=== PATIENT | male | born 1935 | race Caucasian/White ===

== ENCOUNTER 2018-02-02 15:49 | Inpatient (IN) | payer OTHER ==
[2018-02-02] MEDS ORDERED: NA CHLORIDE 0.9% 1,000 ML ONE ×2 (16:35→20:50)
[2018-02-02] MEDS ORDERED: ONDANSETRON 4 MG/2 ML VIAL ONE ×2 (16:35→20:49)
[2018-02-02] MEDS ORDERED: FENTANYL CITR 100 MCG/2 ML ONE (16:48)
[2018-02-02 17:09] LABS: Absolute Lymphocytes (CBC) 0.5 K/uL (0.7-4.9); Absolute Monocytes 1.1 K/uL (0.1-1.3); Absolute Neutrophil 25.9 K/uL (1.8-8.0); Basophils % 0.3 % (0-1.3); Hematocrit 39.1 % (39.6-49.0); Lymphocytes % 1.6 % (15.3-44.8); MPV 10.4 fL (7.6-11.3); RBC Red Blood Cell Count 4.32 M/uL (4.33-5.43)
[2018-02-02 17:23] LABS: Potassium 4.2 mmol/L (3.5-5.1)
[2018-02-02 17:24] LABS: Albumin 3.9 g/dL (3.4-5.0); Bilirubin Direct 0.7 mg/dL (0-0.2); Bilirubin Total 1.9 mg/dL (0.2-1.0)
[2018-02-02 17:48] LABS: Protime INR 3.99
[2018-02-02] MEDS ORDERED: CIPROFLOXACIN 400mg IV 400 MG/200 ML BAG IV ONE (17:55)
[2018-02-02] MEDS ORDERED: METRONIDAZOLE 500mg IVPB 500 MG/100 ML BAG IV ONE (17:55)
--- NOTE | 2018-02-02 18:09 | RAD REPORT ---
EXAM DESCRIPTION: CTAbdomen Pelvis W Contrast - 02/02/2018 5:57 pm CLINICAL HISTORY: Abdominal pain. ABD PAIN COMPARISON: Abdomen Pelvis Wo Contrast dated 01/30/2018 TECHNIQUE: Biphasic CT imaging of the abdomen and pelvis was performed with 100 ml non-ionic IV cont rast. All CT scans are performed using dose optimization technique as appropriate and may include automated exposure control or mA/KV adjustment according to patient size. FINDINGS: The lower lung fisher are mildly emphysematous.No focal infiltrate detected. The liver demonstrates no focal mass or biliary dilatation. The spleen, pancreas, adrenal glands are within normal limits. Small nonobstructing stones are present in both kidneys. Prominent right renal cyst is measuring 4.6 cm. The large bowel on the right including the cecum and ascending colon is markedly dilated. The cecum m easures 6 cm in anterior-posterior dimension. There is an abrupt caliber change in the region of the hepatic flexure were a annular constricting mass measuring 2 cm in length is suspected, highly concer phill for colon malignancy. The appendix is normal. No evidence of significant lymphadenopathy. Aort ic atherosclerosis. No suspicious bony findings. IMPRESSION: A 2 cm apple core lesion is suspected involving the hepatic flexure of the colon compati ble with colon malignancy. Colonoscopy is recommended for further assessment/direct visualization. There is significant fluid-filled distention of the cecum and ascending colon caused by this.
--- NOTE | 2018-02-02 19:06 | RAD REPORT ---
EXAM DESCRIPTION: US - Abdomen Exam Complete - 02/02/2018 6:31 pm CLINICAL HISTORY: Abdominal pain. RUQ pain, Right renal mass COMPARISON: Abdomen Pelvis W Contrast dated 02/02/2018 FINDINGS: Liver assessment is somewhat limited due to poor sonographic penetrance related to bowel g as. No focal liver lesions or intrahepatic biliary dilatation is suspected. The gallbladder demonstrates no gallstones, pericholecystic fluid or gallbladder wall thickening. Co mmon bile duct is normal in caliber measuring 4 mm Both kidneys are normal in size, shape and echotexture. 4 cm benign-appearing right renal cyst. No hy dronephrosis. The spleen is normal in size measuring 9 cm The pancreas and aorta are obscured by bowel gas. The visualized aspects of the IVC are grossly normal. IMPRESSION: No acute abnormality seen.
[2018-02-02 19:09] LABS: Blood Morphology Comment NOT SEEN (NOT SEEN); Platelet Estimate ADEQ
--- NOTE | 2018-02-02 20:03 | ER ---
Nurse's Notes [facility] Name: Bryant Ware Age: 82 yrs Sex: Male : 1935 Arrival Date: 02/02/2018 Time: 15:52 Bed 30 Private MD: Virgil Graham Diagnosis: Colonic mass;Upper abdominal pain, unspecified;Vomiting Presentation: 02/02 15:57 Presenting complaint: Patient states: From September till now I lost about 30 pounds and I la1 have been having a lot of nausea and vomiting that started today, pt denies diarrhea. Pt is C/O abd pain as well. Transition of care: patient was not received from another setting of care. Onset of symptoms was February 02, 2018. Risk Assessment: Do you want to hurt yourself or someone else? Patient reports no desire to harm self or others. Initial Sepsis Screen: Does the patient meet any 2 criteria? No. Patient's initial sepsis screen is negative. Does the patient have a suspected source of infection? No. Patient's initial sepsis screen is negative. Care prior to arrival: None. 15:57 Method Of Arrival: Wheelchair la1 15:57 Acuity: DUNCAN 3 la1 Triage Assessment: 19:39 GI: Reports vomiting. rv Historical: - Allergies: 15:57 No Known Allergies; la1 - Home Meds: 16:05 glimepiride 1 mg Oral tab 1 tab once daily [Active]; ferrous sulfate 325 mg (65 mg iw iron) Oral tab daily [Active]; warfarin 2 mg Oral tab 1 tab once daily [Active]; digoxin 250 mcg Oral tab 1 tab once daily [Active]; spironolactone 25 mg Oral tab 1 tab once daily [Active]; ramipril 2.5 mg Oral cap 1 cap once daily [Active]; simvastatin 40 mg Oral tab 1 tab once daily [Active]; - PMHx: 15:57 Diabetes - NIDDM; High Cholesterol; Hypertension; Atrial Fib; la1 - Immunization history:: Adult Immunizations up to date. - Social history:: Smoking status: Patient/guardian denies using tobacco. - Ebola Screening: : No symptoms or risks identified at this time. Screenin:02 Abuse screen: Denies threats or abuse. Denies injuries from another. Nutritional rv screening: No deficits noted. Tuberculosis screening: No symptoms or risk factors identified. Fall Risk None identified. Assessment: 18:03 General: Appears in no apparent distress. uncomfortable, Behavior is calm, cooperative. rv Pain: Complains of pain in abdomen. Neuro: Level of Consciousness is awake, alert, obeys commands, Oriented to person, place, time, situation. Cardiovascular: Capillary refill < 3 seconds. Respiratory: Airway is patent. GI: Pt is actively vomiting bile. : No signs and/or symptoms were reported regarding the genitourinary system. EENT: No signs and/or symptoms were reported regarding the EENT system. Derm: Skin is intact. Musculoskeletal: No signs and/or symptoms reported regarding the musculoskeletal system. 19:47 Reassessment: Patient appears in no apparent distress at this time. Patient is alert, rv oriented x 3, equal unlabored respirations, skin warm/dry/pink. Vital Signs: 16:00 Pulse 90; Resp 18; Temp 97.8; Pulse Ox 98% on R/A; Weight 89.36 kg; la1 16:00 BP 103 / 57; rv 16:45 BP 109 / 68; Pulse 85; Resp 16; Pulse Ox 100% ; rv 17:30 BP 92 / 60; Pulse 63; Resp 17; Pulse Ox 97% on R/A; rv 19:39 BP 119 / 47; Pulse 89 MON; Resp 17 S; Pulse Ox 99% on R/A; rv 21:55 BP 108 / 59; Pulse 88 MON; Resp 17 S; Pulse Ox 98% on R/A; rv ED Course: 15:52 Patient arrived in ED. rg4 15:52 Virgil Graham MD is Private Physician. rg4 15:53 [facility] pm1 15:53 Adrian Valentino MD is Attending Physician. pm1 15:57 Arm band placed on left wrist. la1 15:58 Triage completed. la1 16:22 Radiology exam delayed due to lab results not completed at this time. (BUN/Creatinine). bq 16:30 Inserted saline lock: 20 gauge in right antecubital area, using aseptic technique. rv Blood collected. 16:30 Initial lab(s) drawn, by id, sent to lab. rv 16:47 Basic Metabolic Panel Sent. rv 16:47 CBC with Diff Sent. rv 16:47 Creatinine for Radiology Sent. rv 16:47 Hepatic Function Sent. rv 16:47 Lipase Sent. rv 16:48 PT-INR Sent. rv 17:20 Notified Nurse Practitioner and/or Physician Magnetic Resonance Technologist of a critical lab result(s), iw WBC-27.6. 17:58 CT completed. Patient tolerated procedure well. Patient taken to ultrasound. kc3 17:58 CT Abd/Pelvis - W/Contrast: IV contrast only In Process Unspecified. EDMS 18:05 Patient has correct armband on for positive identification. Bed in low position. Call rv light in reach. Side rails up X 1. Adult w/ patient. Pulse ox on. NIBP on. 18:31 Ultrasound completed. Patient tolerated well. sg3 18:31 US Abdomen Complete In Process Unspecified. EDMS 19:03 Blood Culture Adult (2) Sent. rv 20:02 Александр Mariee MD is Hospitalizing Provider. pm1 21:07 Hospitalizing Provider role handed off by Александр Mariee MD pm1 21:07 Casimiro Stafford MD is Hospitalizing Provider. pm1 21:07 Casimiro Stafford MD is Hospitalizing Provider. pm1 22:12 No provider procedures requiring assistance completed. Patient admitted, IV remains in rv place. intact. Administered Medications: 16:30 Drug: Zofran 4 mg Route: IVP; Site: right antecubital; rv 19:03 Follow up: Response: Nausea is decreased rv 16:30 Drug: NS 0.9% 1000 ml Route: IV; Rate: 1000 ml; Site: right antecubital; rv 21:54 Follow up: IV Status: Completed infusion rv 16:46 Drug: fentaNYL (PF) 25 mcg Route: IVP; Site: right antecubital; rv 19:16 Follow up: Response: Pain is decreased rv 18:30 Drug: Flagyl 500 mg Volume: 100 ml; Route: IVPB; Rate: 200 ml/hr; Infused Over: 30 rv mins; Site: right antecubital; 19:16 Follow up: IV Status: Completed infusion; IV Intake: 500ml rv 19:15 Drug: Cipro 400 mg Volume: 200 ml; Route: IVPB; Infused Over: 60 mins; Site: right rv antecubital; 21:54 Follow up: IV Status: Completed infusion rv 20:35 Drug: Vitamin K1 10 mg Route: IM; Site: right deltoid; rv 21:53 Follow up: Response: No adverse reaction rv 20:50 Drug: fentaNYL (PF) 25 mcg Route: IVP; Site: right antecubital; rv 21:53 Follow up: Response: Pain is decreased rv 20:50 Drug: Zofran 4 mg Route: IVP; Site: right antecubital; rv 21:53 Follow up: Response: Nausea is decreased rv Intake: 19:16 IV: 500ml; Total: 500ml. rv Outcome: 20:02 Decision to Hospitalize by Provider. pm1 22:12 Admitted to Med/surg accompanied by tech, via wheelchair, room 219, with chart, Report rv called to NURSE CLAUDY 22:12 Condition: good 22:12 Instructed on the need for admit. 22:13 Patient left the ED. rv Signatures: Dispatcher [employer] EDMS Hattie Dale Irene, RN Jorge Alberto Olmos RN RN la1 Robert Stoll, SALES ENGINEERING MANAGER SALES ENGINEERING MANAGER pm1 Ileana Young 4 Dara Holland 3 Hortencia Corona3 Ted Marsh RN RN rv Corrections: (The following items were deleted from the chart) 18:02 16:00 BP 103 / 57; la1 rv
--- NOTE | 2018-02-02 20:04 | EDPHYS ---
Physician Documentation [facility] Name: Bryant Ware Age: 82 yrs Sex: Male : 1935 Arrival Date: 02/02/2018 Time: 15:52 Bed 30 Private MD: Virgil Graham ED Physician Adrian Valentino HPI: 02/02 17:00 This 82 yrs old Male presents to ER via Wheelchair with complaints of pm1 Vomiting. 17:00 The patient presents to the emergency department with vomiting, 3 times since the onset pm1 of symptoms, onset last night, abdominal pain, of the right upper quadrant, described as sharp, and does not radiate. Onset: The symptoms/episode began/occurred Abdominal pain for a few months. 30 pound weight loss since September 2017. Possible causes: unknown. The symptoms are aggravated by nothing. The symptoms are alleviated by nothing. Associated signs and symptoms: Pertinent negatives: constipation, diarrhea, dysuria, fever, GI bleeding. Severity of symptoms: in the emergency department the symptoms are worse. The patient has been recently seen by a physician: the patient's primary care provider, Dr. Graham Had CT and xrays performed 3 days ago for abdominal pain and weight loss. Historical: - Allergies: 15:57 No Known Allergies; la1 - Home Meds: 16:05 glimepiride 1 mg Oral tab 1 tab once daily [Active]; ferrous sulfate 325 mg (65 mg iw iron) Oral tab daily [Active]; warfarin 2 mg Oral tab 1 tab once daily [Active]; digoxin 250 mcg Oral tab 1 tab once daily [Active]; spironolactone 25 mg Oral tab 1 tab once daily [Active]; ramipril 2.5 mg Oral cap 1 cap once daily [Active]; simvastatin 40 mg Oral tab 1 tab once daily [Active]; - PMHx: 15:57 Diabetes - NIDDM; High Cholesterol; Hypertension; Atrial Fib; la1 - Immunization history:: Adult Immunizations up to date. - Social history:: Smoking status: Patient/guardian denies using tobacco. - Ebola Screening: : No symptoms or risks identified at this time. ROS: 17:00 Eyes: Negative for injury, pain, redness, and discharge, ENT: Negative for injury, pm1 pain, and discharge. 17:00 Neck: Negative for injury, pain, and swelling, Cardiovascular: Negative for chest pain, palpitations, and edema, Respiratory: Negative for shortness of breath, cough, wheezing, and pleuritic chest pain. 17:00 Back: Negative for injury and pain, : Negative for injury, bleeding, discharge, and swelling, MS/Extremity: Negative for injury and deformity, Skin: Negative for injury, rash, and discoloration, Neuro: Negative for headache, weakness, numbness, tingling, and seizure. 17:00 Constitutional: Positive for weight loss, Negative for fever, poor PO intake. 17:00 Abdomen/GI: Positive for abdominal pain, nausea and vomiting, Negative for diarrhea, constipation. Exam: 17:00 Constitutional: This is a well developed, well nourished patient who is awake, alert, pm1 and in no acute distress. Head/Face: Normocephalic, atraumatic. Eyes: Pupils equal round and reactive to light, extra-ocular motions intact. Lids and lashes normal. Conjunctiva and sclera are non-icteric and not injected. Cornea within normal limits. Periorbital areas with no swelling, redness, or edema. ENT: Nares patent. No nasal discharge, no septal abnormalities noted. Tympanic membranes are normal and external auditory canals are clear. Oropharynx with no redness, swelling, or masses, exudates, or evidence of obstruction, uvula midline. Mucous membranes moist. Neck: Trachea midline, no thyromegaly or masses palpated, and no cervical lymphadenopathy. Supple, full range of motion without nuchal rigidity, or vertebral point tenderness. No Meningismus. Chest/axilla: Normal chest wall appearance and motion. Nontender with no deformity. No lesions are appreciated. Cardiovascular: Regular rate and rhythm with a normal S1 and S2. No gallops, murmurs, or rubs. Normal PMI, no JVD. No pulse deficits. Respiratory: Lungs have equal breath sounds bilaterally, clear to auscultation and percussion. No rales, rhonchi or wheezes noted. No increased work of breathing, no retractions or nasal flaring. 17:00 Back: No spinal tenderness. No costovertebral tenderness. Full range of motion. Skin: Warm, dry with normal turgor. Normal color with no rashes, no lesions, and no evidence of cellulitis. MS/ Extremity: Pulses equal, no cyanosis. Neurovascular intact. Full, normal range of motion. 17:00 Abdomen/GI: Inspection: abdomen appears normal, Bowel sounds: normal, Palpation: soft, mild abdominal tenderness, in the right upper quadrant, mass, is not appreciated, rebound tenderness, is not appreciated. 17:00 Neuro: Orientation: is normal, Motor: is normal, moves all fours. Vital Signs: 16:00 Pulse 90; Resp 18; Temp 97.8; Pulse Ox 98% on R/A; Weight 89.36 kg; la1 16:00 BP 103 / 57; rv 16:45 BP 109 / 68; Pulse 85; Resp 16; Pulse Ox 100% ; rv 17:30 BP 92 / 60; Pulse 63; Resp 17; Pulse Ox 97% on R/A; rv 19:39 BP 119 / 47; Pulse 89 MON; Resp 17 S; Pulse Ox 99% on R/A; rv 21:55 BP 108 / 59; Pulse 88 MON; Resp 17 S; Pulse Ox 98% on R/A; rv MDM: 16:11 Patient medically screened. pm1 16:57 ED course: Patient evaluated by Dr. Valentino. Recommended ultrasound complete of abdomen pm1 since evaluating right renal mass and RUQ. 19:00 Counseling: I had a detailed discussion with the patient and/or guardian regarding: the pm1 historical points, exam findings, and any diagnostic results supporting the discharge/admit diagnosis, lab results, radiology results, the need for further work-up and treatment in the hospital, Discussed to patient by Dr. Valentino. 19:00 Physician consultation: Александр Mariee MD Message left for Dr. Mariee by Dr. Valentino to pm1 call back for admission. 19:21 Physician consultation: Tiago Vang MD in the emergency department to see patient at pm1 19:21. 19:26 Data reviewed: vital signs. Data interpreted: Pulse oximetry: on room air is 97 %. pm1 Interpretation: normal. 19:44 Physician consultation: Tiago Vang MD would like further tests performed, Vitamin K, pm1 CEA, 12 lead ECG, labs in AM: CBC, CMP. Levaquin and Flagyl, NPO, Nothing AR, IV fluids. Plan colonoscopy in 1-2 days. 21:23 Physician consultation: Casimiro Stafford MD was contacted at 21:24, regarding admission, pm1 patient's condition, in the emergency department to see patient at 21:24. 02/02 16:13 Order name: Basic Metabolic Panel; Complete Time: 17:28 pm1 02/02 16:13 Order name: CBC with Diff; Complete Time: 19:20 pm1 02/02 16:13 Order name: Creatinine for Radiology; Complete Time: 17:36 pm1 02/02 16:13 Order name: Hepatic Function; Complete Time: 17:28 pm1 02/02 16:13 Order name: Lipase; Complete Time: 17:28 pm1 02/02 16:13 Order name: PT-INR; Complete Time: 17:50 pm1 02/02 17:28 Order name: Blood Culture Adult (2) pm1 02/02 19:09 Order name: Manual Differential; Complete Time: 19:20 EDMS 02/02 19:54 Order name: CBC with Automated Diff EDMS 02/02 19:54 Order name: CBC with Automated Diff EDMS 02/02 19:54 Order name: CBC with Automated Diff EDMS 02/02 19:54 Order name: CBC with Automated Diff EDMS 02/02 19:54 Order name: CBC with Automated Diff EDMS 02/02 19:54 Order name: Carcinoembryonic Antigen EDMS 02/02 19:54 Order name: Carcinoembryonic Antigen EDMS 02/02 19:54 Order name: Comprehensive Metabolic Panel EDMS 02/02 19:54 Order name: Comprehensive Metabolic Panel EDMS 02/02 19:54 Order name: Magnesium EDMS 02/02 19:54 Order name: Magnesium EDMS 02/02 19:54 Order name: Magnesium EDMS 02/02 19:54 Order name: Magnesium EDMS 02/02 19:54 Order name: Phosphorus EDMS 02/02 19:54 Order name: Phosphorus EDMS 02/02 19:54 Order name: Phosphorus EDMS 02/02 19:54 Order name: Phosphorus EDMS 02/02 19:54 Order name: Protime (+INR) EDMS 02/02 19:54 Order name: Protime (+INR) EDMS 02/02 19:54 Order name: Protime (+INR) EDMS 02/02 19:54 Order name: Protime (+INR) EDMS 02/02 21:24 Order name: Urine Dipstick--Ancillary (enter results) mw2 02/02 16:13 Order name: IV Saline Lock; Complete Time: 16:47 pm1 02/02 16:13 Order name: Labs collected and sent; Complete Time: 16:47 pm1 02/02 16:13 Order name: CT Abd/Pelvis - W/Contrast: IV contrast only; Complete Time: 18:10 pm1 02/02 16:13 Order name: Urine Dipstick-Ancillary (obtain specimen); Complete Time: 21:55 pm1 02/02 16:53 Order name: US Abdomen Complete; Complete Time: 19:09 pm1 02/02 19:44 Order name: EKG; Complete Time: 19:45 pm1 02/02 19:44 Order name: EKG - Nurse/Tech; Complete Time: 21:54 pm1 02/02 19:54 Order name: NPO EDMS 02/02 20:41 Order name: CONS Physician Consult EDMS 02/02 21:27 Order name: Urine Dipstick-Ancillary; Complete Time: 21:29 EDMS Administered Medications: 16:30 Drug: Zofran 4 mg Route: IVP; Site: right antecubital; rv 19:03 Follow up: Response: Nausea is decreased rv 16:30 Drug: NS 0.9% 1000 ml Route: IV; Rate: 1000 ml; Site: right antecubital; rv 21:54 Follow up: IV Status: Completed infusion rv 16:46 Drug: fentaNYL (PF) 25 mcg Route: IVP; Site: right antecubital; rv 19:16 Follow up: Response: Pain is decreased rv 18:30 Drug: Flagyl 500 mg Volume: 100 ml; Route: IVPB; Rate: 200 ml/hr; Infused Over: 30 rv mins; Site: right antecubital; 19:16 Follow up: IV Status: Completed infusion; IV Intake: 500ml rv 19:15 Drug: Cipro 400 mg Volume: 200 ml; Route: IVPB; Infused Over: 60 mins; Site: right rv antecubital; 21:54 Follow up: IV Status: Completed infusion rv 20:35 Drug: Vitamin K1 10 mg Route: IM; Site: right deltoid; rv 21:53 Follow up: Response: No adverse reaction rv 20:50 Drug: fentaNYL (PF) 25 mcg Route: IVP; Site: right antecubital; rv 21:53 Follow up: Response: Pain is decreased rv 20:50 Drug: Zofran 4 mg Route: IVP; Site: right antecubital; rv 21:53 Follow up: Response: Nausea is decreased rv Disposition: 02/02/18 20:02 Hospitalization ordered by Casimiro Stafford for Inpatient Admission. Preliminary diagnosis are Colonic mass, Upper abdominal pain, unspecified, Vomiting. - Bed requested for Telemetry/MedSurg (Inpatient). - Status is Inpatient Admission. rv - Condition is Stable. - Problem is new. - Symptoms have improved. UTI on Admission? No Addendum: 02/13/2018 15:47 Co-signature as Attending Physician, Adrian Valentino MD I agree with the assessment and p s1 plan of care. PA/MOTORIZED SQUAD CAPTAIN's history reviewed, patient interviewed, and examined. I agree with assessment and care plan and confirm the diagnosis (es) above. Available for consultation at all times. . Signatures: Dispatcher [employer] EDPA Latosha Marsh RN RN Jorge Alberto Chaves RN RN la1 Niharika Young RN RN cg Robert Stoll NP MOTORIZED SQUAD CAPTAIN pm1 Adrian Valentino MD MD ps1 Ted Marsh RN RN rv Corrections: (The following items were deleted from the chart) 02/02 18:32 16:40 Renal Ultrasound-Complete ordered. EDPA EDMS 18:32 16:47 Abdomen Limited+US.RAD.BRZ ordered. [facility] EDMS 20:43 20:02 Hospitalization Ordered by Александр Mariee MD for Inpatient Admission. Preliminary cg diagnosis is Colon Cancer. Bed requested for Telemetry/MedSurg (Inpatient). Status is Inpatient Admission. Condition is Stable. Problem is new. Symptoms have improved. UTI on Admission? No. pm1 21:07 20:43 02/02/2018 20:02 Hospitalization Ordered by Александр Mariee MD for Inpatient pm1 Admission. Preliminary diagnosis is Colon Cancer. Bed requested for Telemetry/MedSurg (Inpatient). Status is Inpatient Admission. Condition is Stable. Problem is new. Symptoms have improved. UTI on Admission? No. cg 22:13 21:07 02/02/2018 20:02 Hospitalization Ordered by Casimiro Stafford MD for Inpatient rv Admission. Preliminary diagnosis is Colonic mass; Upper abdominal pain, unspecified; Vomiting. Bed requested for Telemetry/MedSurg (Inpatient). Status is Inpatient Admission. Condition is Stable. Problem is new. Symptoms have improved. UTI on Admission? No. pm1
[2018-02-02] MEDS ORDERED: VITAMIN K (ADULT) 10 MG/ML ONE (20:43)
[2018-02-02 21:27] LABS: Urine Blood NEGATIVE (NEG); Urine Glucose TRACE (NEG); Urine Protein TRACE (NEG); Urine Specific Gravity <1.005 (1.005-1.030)
--- NOTE | 2018-02-02 21:46 | P.HP ---
Certification for Inpatient Patient admitted to: Inpatient With expected LOS: >2 Midnights Practitioner: I am a practitioner with admitting privileges, knowledge of patient current condition, hospital course, and medical plan of care. Services: Services provided to patient in accordance with Admission requirements found in Title 42 Section 412.3 of the Code of Federal Regulations Patient History Date of Service: 02/02/18 Reason for admission: nausea, vomiting, colonic mass, History of Present Illness: Mr Ware is an 82 years old male with history of NIDDM, COPD, HTN, dysplipidemia , chronic A.Fib anticoagulated with warfarin, who was gradually loosing weight since September of this year, about 30 lb. He has had recurrent abdominal pain, localized on RUQ. Since this morning, the patient has had nuasea and vomiting. He was unable to keep any solid or fluid down. He denied any fever or chills. Last bowel movement was this morning. He has not noticed BM shape changes. Lab work remarkable for leukocytosis 27.6 K, with 7% bandemia, INR 3.99. No fever in ED. CT abd/pelvis remarkable for a 2 cm apple core lesion in the hepatic flexure. At my encounter still some nauseated but feels better, clinically dry. BP on the lower side. Allergies No Known Allergies Allergy (Unverified 02/02/18 16:17) Home medications list reviewed: Yes - Past Medical/Surgical History -: NIDDM -: chronic a.fib -: COPD -: HTN -: Dyslipidemia -: chronic anemia Past Surgical History: Reviewed- Non-Contributory - Family History Family History: Reviewed- Non-Contributory - Social History Smoking Status: Former smoker Alcohol use: No CD- Drugs: No Place of Residence: Home Review of Systems 10-point ROS is otherwise unremarkable Physical Examination - Physical Exam General: Alert, In no apparent distress HEENT: Atraumatic, PERRLA, Mucous membr. moist/pink, EOMI, Sclerae nonicteric Neck: Supple, 2+ carotid pulse no bruit, No LAD, Without JVD or thyroid abnormality Respiratory: Clear to auscultation bilaterally, Normal air movement Cardiovascular: Regular rate/rhythm, Normal S1 S2 Gastrointestinal: Hypoactive, Distended, Tenderness (RUQ) Musculoskeletal: No tenderness Integumentary: No rashes Neurological: Normal speech, Normal strength at 5/5 x4 extr, Normal tone, Normal affect Lymphatics: No axilla or inguinal lymphadenopathy - Studies Laboratory Data (last 24 hrs) 02/02/18 16:30: PT 47.7 H, INR 3.99 02/02/18 16:30: Creatinine 1.40 H 02/02/18 16:30: WBC 27.6 H*, Hgb 13.1 L, Hct 39.1 L, Plt Count 400 02/02/18 16:30: Sodium 136, Potassium 4.2, BUN 24 H, Creatinine 1.47 H, Glucose 233 H, Total Bilirubin 1.9 H, AST 14 L, ALT 13, Alkaline Phosphatase 100, Lipase 75 Assessment and Plan - Problems (Diagnosis) (1) Colonic mass Current Visit: Yes Status: Acute (2) Diabetes mellitus Current Visit: Yes Status: Acute Qualifiers: Diabetes mellitus type: type 2 Diabetes mellitus fpc insulin use: without body maker machine setter use Diabetes mellitus complication status: with unspecified complications Qualified Code(s): E11.8 - Type 2 diabetes mellitus with unspecified complications (3) Chronic atrial fibrillation Current Visit: Yes Status: Acute (4) HTN (hypertension) Current Visit: Yes Status: Acute Qualifiers: Hypertension type: essential hypertension Qualified Code(s): I10 - Essential (primary) hypertension (5) Dyslipidemia Current Visit: Yes Status: Acute (6) COPD (chronic obstructive pulmonary disease) Current Visit: Yes Status: Acute Qualifiers: COPD type: unspecified COPD Qualified Code(s): J44.9 - Chronic obstructive pulmonary disease, unspecified (7) Nausea & vomiting Current Visit: Yes Status: Acute Qualifiers: Vomiting type: unspecified Vomiting Intractability: non-intractable Qualified Code(s): R11.2 - Nausea with vomiting, unspecified (8) Volume depletion Current Visit: Yes Status: Acute - Plan The patient will be admitted to the hospital due to volume depletion in context of nausea and vomiting. CT abd/pelvis remarkable for a colonic mass, highly suspicious for malignancy. He has no fever, but leukocytosis with bandemia, possible early sepsis. Will continue with empiric IV Levaquin and Flagyl. Dr Vang already evaluated the patient, he is planning to do colonoscopy in AM. He has received Vitamin K 10 IV x 1 in ER. Continue IV fluids. - Advance Directives Does patient have a Living Will: No Does patient have a Durable POA for Healthcare: No - Code Status/Comfort Care Code Status Assessed: Yes Code Status: Full Code
[2018-02-02] MEDS: NA CHLORIDE 0.9% 1,000 ML IV SCH (22:32)
[2018-02-02] MEDS: METRONIDAZOLE 500mg IVPB 500 MG/100 ML BAG IV SCH (23:26)
[2018-02-03] MEDS: METRONIDAZOLE 500mg IVPB 500 MG/100 ML BAG IV SCH ×4 (05:07→23:19)
[2018-02-03] MEDS: MORPHINE 2 MG/ML SYR IV PRN ×2 (05:12→20:54)
[2018-02-03 05:53] LABS: Absolute Lymphocytes (CBC) 1.1 K/uL (0.7-4.9); Absolute Monocytes 1.6 K/uL (0.1-1.3); Absolute Neutrophil 15.5 K/uL (1.8-8.0); Basophils % 0.2 % (0-1.3); Hematocrit 32.9 % (39.6-49.0); Lymphocytes % 5.8 % (15.3-44.8); MPV 9.9 fL (7.6-11.3); RBC Red Blood Cell Count 3.65 M/uL (4.33-5.43)
[2018-02-03] MEDS: INSULIN -REGULAR HUMAN 50 UNIT/0.5 ML ML SQ SCH ×4 (06:00→17:56)
[2018-02-03 06:21] LABS: Albumin 3.1 g/dL (3.4-5.0); Bilirubin Total 1.9 mg/dL (0.2-1.0); Phosphorus 3.2 mg/dL (2.5-4.9); Protein, Total 6.6 g/dL (6.4-8.2)
[2018-02-03 06:45] LABS: Protime INR 4.71
--- NOTE | 2018-02-03 07:55 | EKG ---
Test Date: 2018-02-02 Test Time: 21:37:54 Project Manager Finance: MEASUREMENT RESULTS: Intervals: Rate: 95 SD: QRSD: 90 QT: 354 QTc: 444 [place]: P: SD: QRS: 81 T: -46 INTERPRETIVE STATEMENTS: Atrial fibrillation ST & T wave abnormality, consider inferior ischemia Abnormal ECG No previous ECG available for comparison Electronically Signed On 02-03-18 07:53:52 ELASTIC ASSEMBLER by Saul Muse
[2018-02-03] MEDS ORDERED: PNEUMOCOCCAL VACCINE 0.5 ML IMVAC ONE (08:00)
[2018-02-03] MEDS ORDERED: INFLUENZA VACCINE (for 3y+) 0.5 ML DOSE IMVAC ONE (08:00)
[2018-02-03] MEDS: NA CHLORIDE 0.9% 1,000 ML IV SCH ×3 (08:08→20:54)
[2018-02-03] MEDS ORDERED: Levofloxacin500mg IV 500 MG/100 ML BAG IV ONE (09:00)
--- NOTE | 2018-02-03 11:22 | P.PN ---
Subjective Date of Service: 02/03/18 Chief Complaint: nausea, vomiting, colonic mass, Subjective: Improving (Patient has no nausea or emesis, has passed more gas, continues to have tenderness at the RUQ. no distention.) Physical Examination - Vital Signs Temperature: 97.3 F Blood Pressure: 92/55 Pulse: 76 Respirations: 18 Pulse Ox (%): 97 - Physical Exam General: Alert, In no apparent distress, Cooperative HEENT: Mucous membr. moist/pink Cardiovascular: Irregular heart rate/rhythm Gastrointestinal: Other (soft, + global TP, mostly at RUQ, no peritoneal signs, no guarding, no rebound. ) - Studies Laboratory Data (last 24 hrs) 02/02/18 16:30: PT 47.7 H, INR 3.99 02/02/18 16:30: Creatinine 1.40 H 02/02/18 16:30: WBC 27.6 H*, Hgb 13.1 L, Hct 39.1 L, Plt Count 400 02/02/18 16:30: Sodium 136, Potassium 4.2, BUN 24 H, Creatinine 1.47 H, Glucose 233 H, Total Bilirubin 1.9 H, AST 14 L, ALT 13, Alkaline Phosphatase 100, Lipase 75 Assessment And Plan - Current Problems (Diagnosis) (1) Colonic mass Current Visit: Yes Status: Acute Plan: Neuro: continue current pain regime with morphine CVS: patient remains supratherapeutic anticoagulation, recommend additional vitamin K, cardiology consult for cardiac recommendations prior to surgery. Pulm: incentive spirometry GI: serial exams - if pain and partial obstruction improves will start bowel prep soon, and plan for colonoscopy in the next few days, however obstruction does not improve will consider open hemicolectomy. Serial abdominal x-ray daily Renal: insufficiency, will increase hydration FEN: increase IV fluids to 125cc/hr, continue electrolyte replacement protocol, continue NPO for now ID: continue levaquin and flagyl Endo: low dose insulin sliding scale Prophylaxis: hold any additional anticoagulation at this time, ambulate with assist
--- NOTE | 2018-02-03 12:21 | CON ---
Date of Consultation: 02/03/2018 Reason For Consultation: Colonic mass. Brief History Of Present Illness: The patient is a pleasant 82-year-old male with a history of diabetes, COPD, hypertension, dyslipidemia, and chronic atrial fibrillation on anticoagulation with warfarin, who has been experiencing abdominal pain beginning approximately 1-1/2 days ago in the epigastric and global abdomen. He had some nausea and vomiting associated and decreased bowel function. He had not passed gas over the course of the day and had no bowel function and the worsening abdominal pain was beginning to get to him. He felt that this was likely due to increasing his p.o. intake with some holiday snacks. He also notes a significant weight loss over the past year and has lost approximately 50 to 60 pounds in that time. He was unable to tolerate any p.o. due to the nausea and vomiting. He had no fever, chills, or constitutional complaints. No night sweats. No change in his urinary habits. His last bowel movement was in the morning prior to the significant pain. He has not noticed any changes in size, shape, or symmetry of his stool; however, he notes that his stool had gotten somewhat darker, but he feels that was likely due to a medication change, but was uncertain of this completely. He has never had a colonoscopy before in the past and during his admission to the hospital, he does feel somewhat better. The nausea was improved and his abdominal pain had gotten better with pain medication. He had no distention, however. Past Medical History: Diabetes, chronic atrial fibrillation, COPD, hypertension , dyslipidemia, and chronic anemia. Past Surgical History: Hernia Repair. Allergies: NO KNOWN DRUG ALLERGIES. Family History: Noncontributory. Social History: Smoking history, he has a history of tobacco use. Denies alcohol or recreational drug use. Home Medications: Included digoxin 250 mcg p.o. daily, ferrous sulfate 325 p.o. daily, glimepiride 1 mg p.o. daily, Altace 2.5 mg p.o. daily, simvastatin 40 mg p.o. q.h.s., spironolactone/Aldactone 25 mg p.o. daily, warfarin 2 mg p.o. CCom, warfarin sodium 1 mg p.o. CCom. Review of Systems: A 10-point review of systems other than HPI, denies. Physical Examination: Vital Signs: Blood pressure 129/60, pulse is 117, respiratory rate 20, temperature 97.5. At the time of my examination, his BMI was 28.3. General: He is awake, alert, and oriented. Psychiatric: He is appropriately conversive. HEENT: Normocephalic. Sclerae icteric. Mucous is moist. Oropharynx clear. He has several teeth missing. Neck: Supple. No JVD. Chest: Symmetric expansion and excursion. Cardiovascular: Irregularly irregular, currently consistent with atrial fibrillation and increased rate at 117. Pulmonary: Clear to auscultation bilaterally. Abdomen: Soft and nondistended, but has global tenderness most significant in the right upper quadrant and in the suprapubic position. No rebound. No guarding. No focal peritonitis. There is some increased tympany. Extremities: No clubbing, cyanosis, or edema. Skin: Warm and dry. Laboratory Data: Reveals a white blood cell count of 27.6, hemoglobin 13.1, hematocrit of 39.1, platelet count is 400. His neutrophils are 94%. Bands are 7. PT was 47.7, INR 3.99, sodium 136, potassium 4.2, chloride 101, carbon dioxide 27, BUN 24, creatinine 1.4, glucose is 233, calcium 10.3, total bilirubin 1.7, direct component 0.7, AST 14, ALT 13, alkaline phosphatase 100, lipase is 75. UA was essentially negative. He had a CT scan performed of the abdomen and pelvis, which was officially read as 2 cm apple-core lesion suspected involving the hepatic flexure of the colon compatible with colonic malignancy. Colonoscopy is recommended for further assessment and direct visualization. There was significant fluid-filled distention of the cecum and ascending colon caused by this. The large bowel on the right includes the cecum and ascending colon, which is markedly dilated. The cecum measures 6 cm in the anterior-posterior direction. There is an abrupt caliber change in the region of the hepatic flexure where an annular constricting mass is measuring 2 cm in length, suspected highly concerning for colonic malignancy. The appendix is normal. No evidence of significant lymphadenopathy or aortic atherosclerosis is evident. The liver demonstrates no focal mass or biliary dilatation. There is a 4.6 cm right renal cyst as well. He had an ultrasound performed as well which was officially read as no acute abnormality seen of the gallbladder. Assessment And Plan: This is an 82-year-old male, who presents with signs and symptoms of a colonic malignancy causing a partial obstruction. 1. IV fluid hydration. 2. Antibiotic coverage. 3. N.p.o. status. 4. The patient will require confirmatory workup. My plan is to see if the patient opens up with medical management and I would like to proceed with a colonoscopy for a definitive tissue diagnosis should he improve. However, his anticoagulation at this point is supratherapeutic and therefore must be reversed and I will consult Cardiology and the medical doctor will see the patient regarding gentle correction of this. Once the patient has been seen and evaluated, I will send off CEA levels and continue a metastatic workup. Should the patient improve, we would likely plan for laparoscopic possible open right hemicolectomy; however, if he does not improve or have significant symptomatic improvement that will allow for diagnostic colonoscopy and tissue confirmation. We will likely proceed with an open hemicolectomy likely of an extended right hemicolectomy type. I have explained the risks, benefits, and alternatives of the above stated plan and the patient agrees to proceed as indicated. Continue medical management. I have explained the risks , benefits, and alternatives of the above stated plan and the patient agrees to proceed as indicated. Thank you for this interesting consult. WOLFGANG/CHETNA Voice ID: [id number] Report ID: [id number] DREW
[2018-02-04] MEDS: NA CHLORIDE 0.9% 1,000 ML IV SCH ×4 (04:00→20:02)
[2018-02-04 05:56] LABS: Absolute Lymphocytes (CBC) 0.7 K/uL (0.7-4.9); Absolute Monocytes 1.1 K/uL (0.1-1.3); Absolute Neutrophil 10.1 K/uL (1.8-8.0); Basophils % 0.3 % (0-1.3); Eosinophils % 2.3 % (0-4.4); Hematocrit 29.5 % (39.6-49.0); MPV 9.9 fL (7.6-11.3); RBC Red Blood Cell Count 3.26 M/uL (4.33-5.43)
[2018-02-04] MEDS: INSULIN -REGULAR HUMAN 50 UNIT/0.5 ML ML SQ SCH ×4 (06:00→18:00)
[2018-02-04 06:10] LABS: Protime INR 2.12
[2018-02-04 06:13] LABS: Magnesium 1.8 mg/dL (1.8-2.4)
[2018-02-04] MEDS: METRONIDAZOLE 500mg IVPB 500 MG/100 ML BAG IV SCH ×4 (06:19→23:24)
--- NOTE | 2018-02-04 07:35 | RAD REPORT ---
EXAM DESCRIPTION: RAD - Abdomen Acute Series - 02/04/2018 7:21 am CLINICAL HISTORY: Abdominal pain FINDINGS: Free air is not seen beneath the diaphragm. The lungs appear clear of acute infiltrate. Mild distention of the cecum is present. Remainder the bowel gas pattern is unremarkable. Contrast is present within the left colon.
[2018-02-04] MEDS ORDERED: POTASSIUM PHOS IN 0.9 % NACL 15 MMOL/250 ML BAG IV ONE (08:30)
[2018-02-04] MEDS: Levofloxacin 250mg IV 250 MG/50 ML BAG IV SCH (08:37)
[2018-02-04] MEDS ORDERED: MAGNESIUM SULFATE 1 gm IVPB 1 GM/100 ML BAG IV ONE (09:00)
--- NOTE | 2018-02-04 09:58 | P.PN ---
Subjective Date of Service: 02/04/18 Chief Complaint: nausea, vomiting, colonic mass, Subjective: No new changes (Patient states pain is mildly improved, but no significant changes, he continues to have tenderness to the RUQ, passed minimal gas, no bowel movement) Physical Examination - Vital Signs Temperature: 97.7 F Blood Pressure: 116/58 Pulse: 74 Respirations: 18 Pulse Ox (%): 96 - Physical Exam General: Alert, In no apparent distress, Cooperative HEENT: Mucous membr. moist/pink Respiratory: Clear to auscultation bilaterally Cardiovascular: Irregular heart rate/rhythm Gastrointestinal: Other (soft, + RUQ TTP, ND, no rebound, no peritoneal signs.) Assessment And Plan - Current Problems (Diagnosis) (1) Colonic mass Current Visit: Yes Status: Acute Plan: Neuro: continue current pain regime with morphine CVS: patient remains supratherapeutic anticoagulation, recommend additional vitamin K, cardiology consult for cardiac recommendations prior to surgery. Pulm: incentive spirometry GI: serial exams - patient does not seem to be opening up, as such I cannot bowel prep and proceed with colonoscopy and therefore I will proceed with open right extended hemicolectomy in AM if anticoagulation is corrected Renal: insufficiency, will continue hydration FEN: IV fluids to 125cc/hr, continue electrolyte replacement protocol, continue NPO for now ID: continue levaquin and flagyl Endo: low dose insulin sliding scale Prophylaxis: hold any additional anticoagulation at this time, ambulate with assist
[2018-02-04] MEDS ORDERED: VITAMIN K (ADULT) 10 MG/ML SQ ONE (11:00)
[2018-02-04 11:54] LABS: Urine Appearance CLEAR; Urine Blood NEGATIVE (NEG); Urine Color DK YELLOW; Urine Glucose NEGATIVE (NEG); Urine Protein NEGATIVE (NEG); Urine Specific Gravity 1.025 (1.005-1.030)
[2018-02-04 12:38] LABS: Urine Bilirubin 1+ (NEG)
[2018-02-04 13:13] LABS: Urine Microscopic Reflex ORDER UMIC
[2018-02-04 13:14] LABS: Urine Bacteria NONE SEEN /HPF (NONE SEEN); Urine RBC NONE SEEN /HPF (NONE SEEN)
[2018-02-04 13:15] LABS: Urine Culture Reflex Order NOT NEEDED
--- NOTE | 2018-02-04 16:20 | PN ---
Subjective: Currently, patient doing well. He is sitting in the chair. He is very hungry because h e is n.p.o. for few days. He had no chest pain. No abdominal pain. He is complaining of some leg p ain at night time. Objective: Vital Signs: Blood pressure 115/57, respiratory rate 17, pulse 78, temperature 97. General: The patient alert and oriented x3. Does not look in any distress. HEENT: Atraumatic, normocephalic. PERRLA. Oral mucosa is moist. Neck: Supple. No JVD. No bruits. Chest: Clear to auscultation. Good air entry. Heart: Irregular rate and rhythm. No gallop or murmur. Abdomen: Soft, minimal tenderness in the right upper quadrant. There is no rebound. Extremities: No clubbing, cyanosis, or edema. No calf tenderness. Neurologic: Grossly intact. Laboratory Data: Today showed CBC with white blood cells down to 12.3, hemoglobin 9.8, platelet of 2 28. Chemistry from the was normal except for BUN of 23, creatinine of 1.34. INR today at 2.12. Assessment And Plan: 1.Bowel obstruction secondary to colon mass. Colonoscopy aborted. Dr. Vang will proceed with [facility] tomorrow if patient's INR is below 1.5. Patient will receive additional vitamin K. Cardiology consult pending to clear the patient before the surgery. 2.History of atrial fibrillation. The patient is off his anticoagulation at this point. His INR is still above 2. We need to continue vitamin K to reverse INR. 3.Diabetes mellitus, well controlled. The patient is n.p.o. at this point. 4.Hypertension, controlled. Continue home medication. 5.Hyperlipidemia. 6.History of chronic obstructive pulmonary disease, stable. 7.Left lower extremity pain. We will proceed with arterial and venous Doppler to evaluate for ische ritesh. 8.Leukocytosis with bandemia. The patient empirically on Flagyl and levofloxacin and his white bloo d cells are much low today, close to normal. So far cultures from the blood all negative. 9.Deep vein thrombosis prophylaxis. No need if the patient's INR is elevated. 10.The patient will need to complete staging for his colon cancer with a CAT scan of the chest. I w ill hold off for now as the patient has renal insufficiency and IV contrast scan of that. 11.We will keep patient on mild hydration for kidney function to improve. MT/MODL Voice ID: [id number] Report ID: [id number]
[2018-02-04 17:08] LABS: Protime INR 1.75
[2018-02-04] MEDS: VITAMIN K (ADULT) 10 MG/ML SQ SCH (18:19)
[2018-02-04] MEDS: MORPHINE 4 MG/ML SYR IV PRN (19:19)
--- NOTE | 2018-02-04 21:31 | RAD REPORT ---
EXAM DESCRIPTION: US - Lower Extremity Artery Uni Ltd - 02/04/2018 8:29 pm CLINICAL HISTORY: Left leg pain COMPARISON: None FINDINGS: The waveform of the left common femoral, left superficial femoral, left popliteal, left po sterior tibial and left dorsalis pedis arteries are biphasic. Mild plaque is seen. 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
[2018-02-05 01:37] LABS: Protime INR 1.64
[2018-02-05] MEDS: NA CHLORIDE 0.9% 1,000 ML IV SCH ×5 (03:53→23:18)
[2018-02-05 05:05] LABS: Absolute Lymphocytes (CBC) 0.9 K/uL (0.7-4.9); Absolute Neutrophil 8.9 K/uL (1.8-8.0); Eosinophils % 3.6 % (0-4.4); Hematocrit 27.8 % (39.6-49.0); Lymphocytes % 7.7 % (15.3-44.8); MPV 10.2 fL (7.6-11.3); Monocytes % 8.9 % (3.3-12.3); RBC Red Blood Cell Count 3.07 M/uL (4.33-5.43)
[2018-02-05 05:22] LABS: Phosphorus 1.8 mg/dL (2.5-4.9); Potassium 3.8 mmol/L (3.5-5.1)
[2018-02-05] MEDS: METRONIDAZOLE 500mg IVPB 500 MG/100 ML BAG IV SCH ×4 (05:24→23:18)
[2018-02-05 05:58] LABS: Protime INR 1.54
[2018-02-05] MEDS: INSULIN -REGULAR HUMAN 50 UNIT/0.5 ML ML SQ SCH ×4 (06:00→17:58)
[2018-02-05] MEDS: Levofloxacin 250mg IV 250 MG/50 ML BAG IV SCH (09:07)
[2018-02-05] MEDS ORDERED: LIDOCAINE 2% MPF 5 ML VIAL ONE (10:02)
[2018-02-05] MEDS ORDERED: PROPOFOL 200 MG/20 ML VIAL IV ONE (10:02)
[2018-02-05] MEDS ORDERED: ROCURONIUM 50 MG/5 ML VIAL IV ONE (10:03)
[2018-02-05] MEDS ORDERED: NS 0.9% VIAL 10 ML ONE ×2 (10:03→11:39)
[2018-02-05] MEDS ORDERED: FENTANYL CITR 250 MCG/5 ML ONE (10:03)
[2018-02-05] MEDS ORDERED: NA CHLORIDE 0.9% 1,000 ML ONE ×3 (11:07→14:51)
[2018-02-05] MEDS ORDERED: Phenylephrine HCl 10 MG/ML 1 ML VIAL ONE (11:39)
[2018-02-05] MEDS ORDERED: ESMOLOL HCL 10 ML IV ONE ×2 (11:55→12:23)
[2018-02-05 12:41] LABS: Hematocrit 27.9 % (39.6-49.0)
[2018-02-05] MEDS ORDERED: GLYCOPYRROLATE 0.2 MG/ML SYR ONE (13:24)
[2018-02-05] MEDS ORDERED: NEOSTIGMINE 1 MG/ML -5 ML SYRINGE ONE (13:24)
--- NOTE | 2018-02-05 13:32 | P.OP ---
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
[2018-02-05] MEDS: FENTANYL CITR 100 MCG/2 ML ONE ×2 (13:42→13:47)
[2018-02-05] MEDS: MEPERIDINE HCL 50 MG/ML AMP ONE ×4 (13:53→14:23)
[2018-02-05] MEDS ORDERED: ONDANSETRON HCL 40 MG/20 ML VIAL ONE (13:58)
[2018-02-05] MEDS: HYDROMORPHONE HCL 2 MG/ML inj ONE ×3 (13:58→15:01)
[2018-02-05] MEDS ORDERED: NALOXONE 0.4 MG/ML VIAL IV PRN (14:08)
--- NOTE | 2018-02-05 14:18 | PN ---
Subjective: Currently, the patient is lying in bed. He looks comfortable. He is getting ready to g o to surgery. He has no events overnight. He had his arterial Doppler of his left lower extremity a nd seems like that was negative, but the patient continues to have some leg cramps. He is still n.p. o., he is of course hungry. There was no nausea or vomiting. Objective: Vital Signs: Blood pressure is 113/56, respiratory rate 18, pulse 80, and temperature 97 .6. General: The patient is alert and oriented, does not look in any distress. HEENT: Atraumatic and normocephalic. PERRLA. Oral mucosa is moist. Neck: Supple. No JVP. No bruits. Chest: Clear to auscultation. Good air entry. Heart: Irregular rate and rhythm. No gallop or murmur. Abdomen: Soft, nontender today. There is no rebound. Extremities: No clubbing, cyanosis, or edema. No calf tenderness. Neurologic: Grossly intact. Laboratory Data: Showed CBC continued to improve with white blood cells down to 8.3, hemoglobin 9.4, and platelets 252. Chemistry within normal, except for a glucose of 69, chloride 110, calcium 8.1, phosphorus 1.8. Assessment And Plan: 1.Bowel obstruction secondary to colon mass. Colonoscopy was aborted again yesterday and the patien t is going to the OR this morning after INR is below 1.5 for a colectomy. Postop, the patient will n eed oncology followup. He also needs a CT of the chest for complete staging for his colon cancer. 2.History of atrial fibrillation. The patient is off anticoagulation given surgery. INR is 1.4 today. The patient received vitamin K over the last 2 days. Cardiology clearance we will ob anson from Dr. Muse before OR. 3.Diabetes mellitus, well controlled, but the patient is n.p.o. 4.Hypertension, well controlled. 5.History of chronic obstructive pulmonary disease. The patient is stable on nasal cannula. 6.Left lower extremity tenderness. Arterial Doppler was done and this was negative yesterday, ? cou ld be muscle spasm. 7.Leukocytosis with bandemia. Improved significantly with empiric antibiotic with Flagyl and levofl oxacin. Culture so far done on the 02 of February all negative, the patient has not spiked any fev er. 8.Discharge plan postoperatively will be per Surgery recommendation, but again the patient will need oncology consult after pathology resulted and complete staging with the CT of the chest r ecommended as well the patient to have colonoscopy when in the colon. MARILEE/CHETNA Voice ID: [id number] Report ID: [id number]
[2018-02-05] MEDS ORDERED: DILTIAZEM HCL 125 MG/25 ML VIAL IVP ONE (14:40)
[2018-02-05] MEDS: dilTIAZem HCl 25 MG/5 ML VIAL IV ONE ×2 (14:46→14:51)
[2018-02-05] MEDS ORDERED: PROMETHAZINE 25 MG/ML VIAL IV ONE (14:55)
[2018-02-05 16:46] LABS: Magnesium 1.9 mg/dL (1.8-2.4); Phosphorus 3.4 mg/dL (2.5-4.9)
[2018-02-05] MEDS: HYDROMORPHONE/PCA 10 MG/50 ML SYR IV PRN (16:47)
[2018-02-05] MEDS: ONDANSETRON 4 MG/2 ML VIAL IV PRN (16:53)
[2018-02-05] MEDS: VITAMIN K (ADULT) 10 MG/ML SQ SCH (18:34)
[2018-02-05] MEDS ORDERED: VITAMIN K (ADULT) 10 MG/ML ONE (18:41)
--- NOTE | 2018-02-05 19:30 | CON ---
Date of Consultation: 02/04/2018 Reason For Consultation: Cardiac clearance. History Of Present Illness: Mr. Ware is an 82-year-old white male. He normally sees Dr. Nicholson. Has a history of hypertension, diabetes, chronic atrial fibrillation, dyslipidemia, and chronic anemi a. Also was found to have a colonic mass. The patient apparently has had an extensive negative card iac workup by Dr. Nicholson including stress test and echocardiography. Has attempted to do a cardiove rsion on his atrial fibrillation, but that failed. He takes Coumadin for his atrial fibrillation basim t is rate controlled and asymptomatic. The patient denied any cardiac symptoms. He needs clearance for what sounds like an extensive hemicolectomy for colon cancer. Apparently, no evidence of mets so far and a negative CEA. Past Medical History: As stated above. Allergies: NONE. Review of Systems: Negative. Social History: Negative. Family History: Noncontributory. Medications: At home include Lanoxin, glimepiride, Altace, iron, Zocor, Aldactone, and Coumadin. Physical Examination: Vital Signs: He is very pleasant, alert and oriented x3. No acute distress. Atrial fibrillation is rate control in the 80s. Afebrile. HEENT: Negative. Neck: Supple with no bruit. Chest: Clear to auscultation and percussion. Cardiac: Revealed an irregularly irregular rhythm and rate without any murmurs, gallops, or rubs. Abdomen: Benign. Extremities: Revealed no clubbing, cyanosis, or edema. Diagnostic Data: Showed a white count of 27,000. His INR was 4.71. Creatinine is 1.34. Glucose of 144. Chest x-ray is unremarkable. Impression And Plan: 1.Mr. Ware is a patient with chronic atrial fibrillation that is rate controlled. No cardiac sympt oms. Negative cardiac workup. He is on Coumadin. INR is 4.71. He has received vitamin K once and we will give him another dose to try to get his INR close to 1.5 prior to surgery. He is cleared for surgery otherwise. I will follow him along with Dr. Vang. 2.Diabetes, controlled on Lipitor and glimepiride. 3.Hypertension, on Altace. 4.Dyslipidemia, on Zocor. 5.Anemia, on iron. 6.Moderate renal insufficiency. NB/MODL Voice ID: [id number] Report ID: [id number]
[2018-02-05] MEDS ORDERED: D50W 25 GM/50 ML SYRINGE IV PRN (21:58)
[2018-02-05] MEDS ORDERED: GLUCAGON 1 MG/VIAL IM PRN (21:58)
--- NOTE | 2018-02-06 00:43 | OP ---
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 Procedure Performed: 1. Open abdominal exploration. 2. Extended right hemicolectomy with primary anastomosis. 3. Small bowel resection of involved segment of small bowel. 4. Primary abdominal closure. Anesthesia: General endotracheal. Estimated Blood Loss: Approximately 100 cc. Specimen: 1. Extended right hemicolectomy specimen. 2. Additional transverse colon margin. 3. Segment of small bowel. 4. Omentum. Findings: 1. There was obstructing colon cancer at the right hepatic flexure. 2. There was a segment of small bowel firmly adherent at the distal to mid distal small bowel adherent to the medial aspect of the colon cancer at the hepatic flexure causing a slight narrowing at this area. 3. There was no obvious metastatic disease on examination of the peritoneum, liver, spleen, and other abdominal viscera. Complications: None. Drains: Urinary catheter. The patient was transferred to ICU in fair condition. Procedure In Detail: After informed consent was obtained, patient was brought to the operating room, prepped and draped in the usual sterile fashion. After adequate anesthesia was achieved, an upper midline incision was extended to approximately 3 to 4 cm below the umbilicus. Dissection continued down through Camper fat and Inocente fascia to the linea alba. The linea alba was dissected clear down with electrocautery down to the layer of the peritoneum. The peritoneum was grasped, elevated, and sharply incised and entered. After it was opened, the abdomen was opened in its entirety under direct visualization without evidence of complication. There was some murky dark fluid which had a hemorrhagic appearance to it, but this was minimal primarily in the right hepatic flexure. After the abdomen was opened, I inspected the liver, spleen, and small bowel for any evidence of metastatic disease. The small bowel had a segment of the distal to mid distal small bowel which was adherent to the medial aspect of the hepatic flexure where I suspected the cancer was. There was some hyperemic appearance and hemorrhagic appearance to the colon at the right colon at the cecum extending all the way up the right colon to proximal to the hepatic flexure. The remainder of the abdominal examination and visceral examination was essentially normal. The small bowel was run in its entirety from the ligament of Treitz to the ileocecal valve. I then proceeded to mobilize the colon from a lateral to medial approach. I took down the white line of Toldt laterally and around the hepatic flexure, ensuring to stay out of Gerota fascia. I extended around to the area along the transverse colon, protecting the duodenum and pancreatic head throughout the dissection from the lateral to medial approach. I then found appropriate segment of small bowel to mobilize. Approximately 5 to 6 cm of small bowel near the ileocecal valve was mobilized, and a small window was created, and Endo JESU 75 blue load was fired across the small bowel with good approximation. I then scored the peritoneum on the medial aspect and carried this down near the SMA to the takeoff of the right colic artery. I extended this all the way around to the right branch of the middle colic and middle colic arteries, and both the right and left branches of the middle colic arteries were identified. I dissected around the right colic and ileocolic arteries to expose these vessels. These vascular arcades were inspected with respect to the small bowel and colon and I found the right colic artery and traced it down palpating for any obvious lymphadenopathy. There was no gross bulky lymphadenopathy appreciated, and I dissected down to the confluence at the superior mesenteric vein. I then dissected these structures out and placed stick-ties on the right colic artery and right colic vein as it extends to the SMV without narrowing the structures. I then placed clips in this area for fiducial markers at the vascular pedicle. I then continued around superiorly on the medial aspect to take the right branch of the middle colic artery in a similar fashion with a 3-0 suture stick tie on the right branch of middle colic near the takeoff of the middle colic artery. I ensured an extended lymphadenectomy in this area as well down to these vascular pedicles. After the right branch of middle colic was taken, I left fiducial markers in this area as well with the medium clip army officer. I then found a segment of colon along the transverse colon and created a window using the cautery. I mobilized the omentum off the aspect to allow for mobilization and complete visualization of this. At this point, I then fired the Endo JESU 75 blue load across the colon with good approximation of tissues and completed the removal of the colon using the LigaSure device for all the non -named vascular structures. The colon was then passed off on the back table. The abdomen was inspected for proper hemostasis and packed appropriately at this time. I then went and inspected the colonic specimen at this point on the back table and opened it. I found that the specimen was well contained for approximately 6 to 7 cm distal to the colonic obstruction which was found to be a tight stricture at this point. I therefore inspected the remainder of the colon and found that we had adequate margins on the proximal side, but I opted for an additional distal margin as it was not quite 10 cm. I therefore changed my gown and gloves and returned to the operative field at this point. I took an additional 6 to 7 cm of proximal transverse colon in a similar fashion by creating a mesocolic window with the electrocautery and fired the JESU 75 blue load across the colon with good approximation of the tissues and used the LigaSure device to take this additional margin. I inspected the vascular arcades and found them to be good near the edge of the proximal specimen. This additional margin was tagged with a single silk stitch to tyra the true distal margin and this was sent off for pathologic examination. I then turned my attention to a segment of small bowel, which was firmly adherent to the medial aspect of this colon. It had been mobilized just prior to removal of the specimen and I returned to this segment and created a mesenteric window on the proximal-distal side of approximately 6 cm segment of small bowel. There was no obvious involvement of this, but it had some red hyperemic appearance, and as such, I decided to take this to ensure that there was no evidence of locally metastatic disease. I therefore did a wedge along the mesentery of the segment of small bowel and sent it off for pathologic examination. At this point, I then aligned the small bowel in a [id number]-kv-[id number] isoperistaltic manner and secured the segment of small bowel with a proximal and distal 2-0 silk stitch. I created a sterile field for soilage and created a proximal and distal enterotomy in the small bowel. I then advanced the JESU 75 blue load and fired it at this point once again, and removed it. The common channel was found to be good, patent, intact with no obvious bleeding. I then closed this common channel with a 3-0 PDS suture in a erick stitch type fashion and closed it in a second layer using interrupted 2-0 silk Lemberts with good approximation of the tissues and the common channel was found to be quite patent. I then closed the mesenteric window using a 3-0 Vicryl in a running fashion with good approximation. I then turned my attention back to the colon. The mid transverse to distal transverse colon was slightly mobilized from the omentum and the small bowel distal segment was brought up in a cqze-as-lqtl isoperistaltic manner. Similarly, a 2-0 silk was used to secure the Tenia and the antimesenteric border of the small bowel in a pphf-ya-asla isoperistaltic fashion on both the proximal and distal aspects. Additional enterotomies were created and the JESU 75 blue load was fired through this common channel with good common channel in there without hemostasis. The common enterotomy was then closed with a similar 3-0 PDS suture in a canal type stitch and a second layer of Lemberts was used to close this with good approximation of tissues. I then removed all laps. We changed gloves and gowns once again and the area was copiously irrigated and suctioned until completely dry. The small bowel was once again run in its entirety. All anastomoses were found to be patent and well sealed. I then wrapped the remaining omentum around 2 anastomoses and suctioned out the patient's abdomen. I inspected the remainder of the abdomen at this time to ensure no additional bleeding or hemostatic maneuvers were required, which were not required at this time. I then closed the patient's abdomen en bloc with a #1 looped PDS with good approximation of tissues. I then irrigated and cleansed the patient's subcutaneous skin and closed the skin with interrupted kervin and a sterile dressing was placed over top. The patient tolerated the procedure well without evidence of complication, transferred to PACU in good condition. All counts were correct at the end of the case. WOLFGANG/CHETNA Voice ID: [id number] Report ID: [id number] DREW
[2018-02-06 05:10] LABS: Protime INR 1.44
[2018-02-06] MEDS: METRONIDAZOLE 500mg IVPB 500 MG/100 ML BAG IV SCH ×4 (05:15→23:51)
[2018-02-06 05:27] LABS: Potassium 4.9 mmol/L (3.5-5.1)
--- NOTE | 2018-02-06 06:29 | EKG ---
Test Date: 2018-02-05 Test Time: 14:40:08 Netsuite Developer: LILIAN MEASUREMENT RESULTS: Intervals: Rate: 136 MT: QRSD: 96 QT: 320 QTc: 481 [place]: P: MT: QRS: 77 T: 244 INTERPRETIVE STATEMENTS: Atrial fibrillation with rapid ventricular response ST & T wave abnormality, consider inferolateral ischemia or digitalis effect Abnormal ECG Compared to ECG 02/02/2018 21:37:54 No significant changes Electronically Signed On 02-06-18 06:29:16 RN PROVIDER RELATIONS by Tate Singleton
[2018-02-06] MEDS: ONDANSETRON 4 MG/2 ML VIAL IV PRN ×3 (06:33→23:51)
[2018-02-06] MEDS: INSULIN -REGULAR HUMAN 50 UNIT/0.5 ML ML SQ SCH ×4 (07:30→20:12)
[2018-02-06] MEDS: Levofloxacin 250mg IV 250 MG/50 ML BAG IV SCH (08:14)
[2018-02-06] MEDS: ENOXAPARIN 40 MG/0.4 ML SQ SCH (08:14)
--- NOTE | 2018-02-06 11:11 | P.PN ---
Subjective Date of Service: 02/06/18 Chief Complaint: nausea, vomiting, colonic mass, Subjective: Improving (Patient sitting in chair, + minimal gas, pain well controlled with RELAY RECORD CLERK) Physical Examination - Vital Signs Temperature: 97.8 F Blood Pressure: 107/67 Pulse: 123 Respirations: 20 Pulse Ox (%): 98 - Physical Exam General: Alert, In no apparent distress, Cooperative HEENT: Mucous membr. moist/pink Respiratory: Clear to auscultation bilaterally Cardiovascular: No edema Gastrointestinal: Other (soft, mild to moderate appropriate TTP, ND, dressings clean and dry) Musculoskeletal: No clubbing, No swelling Integumentary: No rashes, No breakdown Neurological: Normal speech Urinary: Vang catheter Assessment And Plan - Current Problems (Diagnosis) (1) Colonic mass Current Visit: Yes Status: Acute Plan: Neuro: continue current pain regime with RELAY RECORD CLERK and PRN norco CVS: rate controlled a-fib, hd stable overnight and in ICU Pulm: incentive spirometry Q15 min, RT consulted GI: serial exams, await bowel function, remove kervin in 10-14 days, chewing gum PRN Renal: will continue hydration, DC vang FEN: IV fluids to 125cc/hr, continue electrolyte replacement protocol, continue clear liquid diet for now ID: continue levaquin and flagyl Endo: low dose insulin sliding scale Prophylaxis: start lovenox, SCDs, simethicone Transfer to Floor with telemetry, continuous pulse oximetry Follow up pathology
[2018-02-06 11:16] LABS: Absolute Lymphocytes (CBC) 0.4 K/uL (0.7-4.9); MPV 9.3 fL (7.6-11.3); RBC Red Blood Cell Count 3.78 M/uL (4.33-5.43)
[2018-02-06 11:19] LABS: Absolute Monocytes 1.7 K/uL (0.1-1.3); Absolute Neutrophil 19.4 K/uL (1.8-8.0); Basophils % 0.3 % (0-1.3); Hematocrit 34.6 % (39.6-49.0); Lymphocytes % 1.8 % (15.3-44.8); Monocytes % 8.1 % (3.3-12.3)
[2018-02-06 11:31] LABS: Platelet Estimate ADEQ; Urine White Blood Cell Casts OK
[2018-02-06 11:32] LABS: Blood Morphology Comment NOTED (NOT SEEN); Burr Cells 1+
[2018-02-06] MEDS: NA CHLORIDE 0.9% 1,000 ML IV SCH ×2 (12:00→20:11)
--- NOTE | 2018-02-06 13:16 | PN ---
Date of Progress Note: 02/06/2018 Mr. Ware was admitted initially for a colonic mass requiring surgery. I gave him cardiac clearance for the surgery. He underwent the surgery on his abdomen by Dr. Vang on 02/05/2018. I am seeing him today in followup. He does not have any cardiac symptoms. He does not have any congestive heart failure. He is in normal sinus rhythm. His chest is clear. I will sign off his case. I will be a vailable for questions if the need arise. SANGEETA/CHETNA Voice ID: [id number] Report ID: [id number]
--- NOTE | 2018-02-06 14:30 | P.PN ---
Subjective Date of Service: 02/06/18 Chief Complaint: nausea, vomiting, colonic mass, Subjective: Improving Chart reviewed and case discussed with RN and Dr. Vang Patient tolerated surgery well. Does complain of some abdominal pain. Otherwise moving some gas however no bowel movement. Pain is controlled with CFO CONTROLLER pump. Review of Systems 10-point ROS is otherwise unremarkable Gastrointestinal: As per HPI Physical Examination - Vital Signs Temperature: 97.8 F Blood Pressure: 107/67 Pulse: 123 Respirations: 20 Pulse Ox (%): 98 - Physical Exam General: Alert, Oriented x3, Mild distress HEENT: Atraumatic, PERRLA, EOMI Neck: Supple, JVD not distended Respiratory: Clear to auscultation bilaterally, Normal air movement Cardiovascular: No edema, Normal pulses, Normal S1 S2, Irregular heart rate/ rhythm Gastrointestinal: Normal bowel sounds, No rebound, No guarding, Distended, Tenderness Musculoskeletal: No clubbing, No erythema, No tenderness Integumentary: No rashes, No erythema, No cyanosis Neurological: Normal speech, Normal strength at 5/5 x4 extr, Normal tone, Cranial nerves 3-12 intact, Normal affect - Studies Laboratory Tests 02/02/18 02/02/18 02/02/18 16:30 16:30 16:30 WBC 27.6 H* RBC 4.32 L Hgb 13.1 L Hct 39.1 L MCV 90.5 D MCH 30.3 MCHC 33.5 RDW 14.2 Plt Count 400 MPV 10.4 Neutrophils % 94.1 H Lymphocytes % 1.6 L Monocytes % 4.0 Eosinophils % 0.0 Basophils % 0.3 Absolute Neutrophils 25.9 H Segmented Neutrophils 85 H Band Neutrophils 7 H Absolute Lymphocytes 0.5 L Lymphocytes 4 L Monocytes 4 Absolute Monocytes 1.1 Eosinophils 0 Absolute Eosinophils 0.0 Basophils 0 Absolute Basophils 0.1 Morphology Comment Not seen PT INR Sodium 136 Potassium 4.2 Chloride 101 Carbon Dioxide 27 BUN 24 H Creatinine 1.47 H 1.40 H Estimated GFR 46 L Glucose 233 H Calcium 10.3 H Total Bilirubin 1.9 H Direct Bilirubin 0.7 H AST 14 L ALT 13 Alkaline Phosphatase 100 Serum Total Protein 8.0 Albumin 3.9 Globulin 4.1 H Albumin/Globulin Ratio 1.0 L Lipase 75 02/02/18 16:30 WBC RBC Hgb Hct MCV MCH MCHC RDW Plt Count MPV Neutrophils % Lymphocytes % Monocytes % Eosinophils % Basophils % Absolute Neutrophils Segmented Neutrophils Band Neutrophils Absolute Lymphocytes Lymphocytes Monocytes Absolute Monocytes Eosinophils Absolute Eosinophils Basophils Absolute Basophils Morphology Comment PT 47.7 H INR 3.99 Sodium Potassium Chloride Carbon Dioxide BUN Creatinine Estimated GFR Glucose Calcium Total Bilirubin Direct Bilirubin AST ALT Alkaline Phosphatase Serum Total Protein Albumin Globulin Albumin/Globulin Ratio Lipase Microbiology Data (last 24 hrs): Blood cultures no growth to date Medications List Reviewed: Yes Assessment And Plan - Current Problems (Diagnosis) (1) Colonic mass Current Visit: Yes Status: Acute (2) Nausea & vomiting Current Visit: Yes Status: Acute Qualifiers: Vomiting type: unspecified Vomiting Intractability: non-intractable Qualified Code(s): R11.2 - Nausea with vomiting, unspecified (3) Volume depletion Current Visit: Yes Status: Acute (4) COPD (chronic obstructive pulmonary disease) Current Visit: Yes Status: Acute Qualifiers: COPD type: unspecified COPD Qualified Code(s): J44.9 - Chronic obstructive pulmonary disease, unspecified (5) Chronic atrial fibrillation Current Visit: Yes Status: Acute (6) Diabetes mellitus Current Visit: Yes Status: Acute Qualifiers: Diabetes mellitus type: type 2 Diabetes mellitus terminal operations manager insulin use: without mcc use Diabetes mellitus complication status: with hyperglycemia Qualified Code(s): E11.65 - Type 2 diabetes mellitus with hyperglycemia (7) Dyslipidemia Current Visit: Yes Status: Acute (8) HTN (hypertension) Current Visit: Yes Status: Acute Qualifiers: Hypertension type: essential hypertension Qualified Code(s): I10 - Essential (primary) hypertension - Plan Continue pain control CFO CONTROLLER pump Clear liquid diet Continue IV antibiotics Continue rate control for atrial fibrillation. Resume anticoagulation in a.m. with full-dose Lovenox and transition to newer anticoagulation agents rather than Coumadin. Will discuss with cardiology. Patient interested in switching to newer anticoagulation agents as his also uses anticoagulation. Monitor H&H CBC showed elevation of WBCs will continue antibiotics and monitor for signs of infection likely acute phase reactant. No signs of sepsis Discharge Plan: Home Plan to discharge in: 72 Hours - Code Status/Comfort Care Code Status Assessed: Yes
[2018-02-06] MEDS: ATORVASTATIN 20 MG TAB PO SCH (20:11)
[2018-02-06] MEDS: SIMETHICONE 80 MG TAB PO PRN (21:03)
[2018-02-06 22:41] LABS: Absolute Lymphocytes (CBC) 0.4 K/uL (0.7-4.9); Absolute Monocytes 1.3 K/uL (0.1-1.3); Absolute Neutrophil 18.7 K/uL (1.8-8.0); Basophils % 0.2 % (0-1.3); Hematocrit 34.1 % (39.6-49.0); MPV 9.4 fL (7.6-11.3); Monocytes % 6.4 % (3.3-12.3); RBC Red Blood Cell Count 3.73 M/uL (4.33-5.43)
[2018-02-06 22:44] LABS: Potassium 3.8 mmol/L (3.5-5.1)
[2018-02-07] MEDS: NA CHLORIDE 0.9% 1,000 ML IV SCH ×3 (03:56→20:26)
[2018-02-07] MEDS: SIMETHICONE 80 MG TAB PO PRN (03:57)
[2018-02-07] MEDS: ONDANSETRON 4 MG/2 ML VIAL IV PRN ×3 (06:14→20:31)
[2018-02-07] MEDS: METRONIDAZOLE 500mg IVPB 500 MG/100 ML BAG IV SCH ×3 (06:14→18:45)
[2018-02-07 06:17] LABS: Absolute Lymphocytes (CBC) 0.5 K/uL (0.7-4.9); Absolute Monocytes 1.8 K/uL (0.1-1.3); Absolute Neutrophil 17.6 K/uL (1.8-8.0); Basophils % 0.3 % (0-1.3); Hematocrit 33.4 % (39.6-49.0); Lymphocytes % 2.4 % (15.3-44.8); MPV 9.4 fL (7.6-11.3); Monocytes % 8.8 % (3.3-12.3); RBC Red Blood Cell Count 3.67 M/uL (4.33-5.43)
[2018-02-07 06:19] LABS: Potassium 4.1 mmol/L (3.5-5.1); Protime INR 1.44
[2018-02-07] MEDS: INSULIN -REGULAR HUMAN 50 UNIT/0.5 ML ML SQ SCH ×4 (07:30→21:00)
[2018-02-07 07:32] LABS: Blood Morphology Comment NOT SEEN (NOT SEEN); Platelet Estimate ADEQ; Toxic Granulation 1+; Urine White Blood Cell Casts OK
--- NOTE | 2018-02-07 08:46 | P.PN ---
Subjective Date of Service: 02/07/18 Chief Complaint: nausea, vomiting, colonic mass, Subjective: Improving (Patient feels better, less pain, tolerating diet, ambulated 2x in halls, + belching, no emesis) Physical Examination - Vital Signs Temperature: 97.7 F Blood Pressure: 127/67 Pulse: 108 Respirations: 19 Pulse Ox (%): 96 - Physical Exam General: Alert, In no apparent distress, Cooperative Respiratory: Clear to auscultation bilaterally (IS ~1000cc) Gastrointestinal: Other (soft, mild distention, appropriate mild to moderate TTP , incisions clean and dry, binder in place) - Studies Medications List Reviewed: Yes Assessment And Plan - Current Problems (Diagnosis) (1) Colonic mass Current Visit: Yes Status: Acute Plan: Neuro: continue current pain regime with AUTO BODY REPAIRER and PRN norco CVS: rate controlled a-fib, hd stable overnight and in ICU, ok to restart anticoagulation, await cardiology recommendations regarding coumadin vs newer agent Pulm: incentive spirometry Q15 min, RT consulted GI: serial exams, await bowel function, remove kervin in 10-14 days, chewing gum PRN Renal: will continue hydration, DC vang FEN: IV fluids to 125cc/hr, continue electrolyte replacement protocol, advance to full liquid diet for now ID: continue levaquin and flagyl Endo: low dose insulin sliding scale Prophylaxis: start lovenox, SCDs, simethicone Transfer to Floor with telemetry, continuous pulse oximetry Follow up pathology
[2018-02-07] MEDS ORDERED: RAMIPRIL 2.5 MG CAP PO SCH (09:00)
[2018-02-07] MEDS ORDERED: SPIRONOLACTONE 25 MG TABLET PO SCH (09:00)
[2018-02-07] MEDS: Levofloxacin 250mg IV 250 MG/50 ML BAG IV SCH (09:19)
[2018-02-07] MEDS: DIGOXIN 0.25 MG TABLET PO SCH (09:19)
[2018-02-07] MEDS: GLIMEPIRIDE 2 MG TABLET PO SCH (09:20)
[2018-02-07] MEDS: ENOXAPARIN 40 MG/0.4 ML SQ SCH (09:25)
[2018-02-07] MEDS ORDERED: ENOXAPARIN 60 MG/0.6 ML SQ ONE (10:15)
[2018-02-07] MEDS ORDERED: PHENOL 1.4% ORAL SPRAY 180ML MM PRN (13:38)
[2018-02-07] MEDS: HYDROMORPHONE/PCA 10 MG/50 ML SYR IV PRN (20:18)
[2018-02-07] MEDS: ATORVASTATIN 20 MG TAB PO SCH (20:24)
[2018-02-07] MEDS: CARVEDILOL 6.25 MG TAB PO SCH (20:25)
[2018-02-07] MEDS: ENOXAPARIN 100 MG/ML SYR SQ SCH (20:26)
--- NOTE | 2018-02-07 20:28 | PN ---
Date of Progress Note: 02/07/2018 Subjective: The patient is seen and examined. Chart reviewed and case discussed with RN. The patie nt states that he is having pain and not really passing much gas. Continues to have burping. Medications: List reviewed. Physical Examination: Vital Signs: Temperature 97.4, heart rate 124, blood pressure 140/69, respirations 20, and O2 of 94% on 2 L via nasal cannula. General: Awake, alert, and oriented x3, elderly male, somewhat ill appearing. CV: S1 and S2, irregularly irregular, with rapid ventricular rate. Pulses present. Respiratory: Moving air well bilaterally. No wheezing. Gastrointestinal: Abdomen is soft, mildly distended. Hypoactive bowel sounds. Emi intact. Inc ision site clean, dry, and intact. Extremities: No clubbing, cyanosis, or edema. Neurologic: Nonfocal. Laboratory Data: Sodium 145, potassium 4.1, chloride 113, CO2 of 22, BUN 15, creatinine 0.92, glucos e 137, lactate 0.9, and calcium 8.1. WBC 20, H and H are 11 and 33.4, platelets 337, neutrophils 88. 5%. Blood cultures, no growth to date. Assessment And Plan: An 82-year-old male with, 1.Colonic mass, status post right hemicolectomy. Follow up with surgical pathology. The patient wi ll be following up with Dr. Earl with Oncology as an outpatient for further workup and treatment. 2.Non-intractable nausea and vomiting, improved. 3.Volume depletion, improved. 4.Chronic obstructive pulmonary disease, chronic bronchitis. 5.Chronic atrial fibrillation with rapid ventricular rate. We will add beta blockers. Continue dig oxin. The patient now back on therapeutic Lovenox. We will discuss with Cardiology. Considering ne wer anticoagulation agent rather than Coumadin. 6.Diabetes mellitus type 2 without long-term use of insulin with hyperglycemia. We will continue Ac cu-Cheks. Continue sliding scale insulin. 7.Mixed hyperlipidemia. Continue statin. 8.Essential hypertension, stable. Plan: Per Surgery, diet has been advanced to full liquids. We will continue to encourage ambulation and await bowel return. Monitor WBC, still elevated at 20,000. Blood cultures are negative to date . The patient has been afebrile. We will continue IV antibiotics for now. Pain control with POULTRY PICKER an d p.o. [place]. Continue IV fluids. Continue with PT. Discharge planning, likely discharge in the ne xt 48 to 72 hours. /CHETNA Voice ID: [id number] Report ID: [id number]
[2018-02-08] MEDS: METRONIDAZOLE 500mg IVPB 500 MG/100 ML BAG IV SCH ×4 (00:07→17:26)
[2018-02-08 05:20] LABS: MPV 9.8 fL (7.6-11.3)
[2018-02-08 05:21] LABS: Protime INR 1.39
[2018-02-08 05:26] LABS: Absolute Lymphocytes (CBC) 0.8 K/uL (0.7-4.9); Absolute Monocytes 2.4 K/uL (0.1-1.3); Absolute Neutrophil 22.8 K/uL (1.8-8.0); Basophils % 0.2 % (0-1.3); Eosinophils % 0.1 % (0-4.4); Hematocrit 37.2 % (39.6-49.0); Lymphocytes % 3.1 % (15.3-44.8); Monocytes % 9.1 % (3.3-12.3); RBC Red Blood Cell Count 4.09 M/uL (4.33-5.43)
[2018-02-08] MEDS: NA CHLORIDE 0.9% 1,000 ML IV SCH ×3 (05:45→21:37)
[2018-02-08 05:50] LABS: Potassium 3.7 mmol/L (3.5-5.1)
[2018-02-08 07:23] LABS: Blood Morphology Comment NOTED (NOT SEEN); Platelet Estimate INCR
[2018-02-08 07:24] LABS: Burr Cells 1+
[2018-02-08] MEDS: INSULIN -REGULAR HUMAN 50 UNIT/0.5 ML ML SQ SCH ×4 (07:30→21:00)
[2018-02-08] MEDS ORDERED: POTASSIUM CL SA 10 MEQ TAB PO ONE (09:00)
[2018-02-08] MEDS: DIGOXIN 0.25 MG TABLET PO SCH (09:10)
[2018-02-08] MEDS: CARVEDILOL 6.25 MG TAB PO SCH ×2 (09:11→21:37)
[2018-02-08] MEDS: GLIMEPIRIDE 2 MG TABLET PO SCH (09:11)
[2018-02-08] MEDS: Levofloxacin 250mg IV 250 MG/50 ML BAG IV SCH (09:12)
[2018-02-08] MEDS: ENOXAPARIN 100 MG/ML SYR SQ SCH (09:12)
[2018-02-08] MEDS: HYDROCODONE/APAP 7.5/325 MG TAB PO PRN ×2 (10:19→13:08)
[2018-02-08] MEDS: ONDANSETRON 4 MG/2 ML VIAL IV PRN (17:26)
--- NOTE | 2018-02-08 21:21 | RAD REPORT ---
EXAM DESCRIPTION: CT - Abdomen Pelvis Wo Contrast - 02/08/2018 8:57 pm CLINICAL HISTORY: Abdominal pain /colon cancer COMPARISON: February 02, 2018 TECHNIQUE: Computed axial tomography of the abdomen and pelvis was obtained. IV was not requested. O ral contrast was given. . All CT scans are performed using dose optimization technique as appropriate and may include automated exposure control or mA/KV adjustment according to patient size. FINDINGS: The evaluation of solid organs and vessels is limited secondary to the lack of contrast a dministration. Postsurgical changes of a right hemicolectomy. Mild dilatation of small bowel without discrete transi tion point. The stomach is moderately distended. The liver, spleen, pancreas, and adrenals appear grossly normal. Renal cysts. Tiny nonobstructing barrett al calculi Bilateral inguinal hernias contain fat. Air bubble within the bladder likely is secondary to recent i nstrumentation. Small bilateral pleural effusions with bibasilar atelectasis. Small amount of pneumoperitoneum. Small to moderate amount of ascites within the right pericolic gutt er. Small amount of ascites within the pelvis. IMPRESSION: Right hemicolectomy. Mild small bowel dilatation probably representing an adynamic ileu s. Early partial mechanical obstruction is less likely. If the patient's symptoms persist then follow up abdominal plain film series would be recommended. Moderate gastric distention Small amount of pneumoperitoneum likely the sequela of the prior surgery. Small to moderate amount of ascites within the right paracolic gutter.
[2018-02-08] MEDS: ATORVASTATIN 20 MG TAB PO SCH (21:37)
[2018-02-08] MEDS: APIXABAN 5 MG TABLET PO SCH (21:39)
--- NOTE | 2018-02-08 22:54 | PN ---
Date of Progress Note: 02/08/2018 History: The patient is seen and examined. Chart reviewed and case discussed with RN. The patient is still having some pain and states that he is not passing much gas. He is not having much of an appetite. is at the bedside. Treatment plan explained and all questions answered. Medications: List reviewed. Physical Examination: Vital Signs: Temperature 98.2, heart rate 88, blood pressure 111/60, respirations 18, O2 95% on room air. GENERAL: Awake, alert, oriented x3, in no acute distress. Elderly male. CV: S1, S2. Peripheral pulses present. Irregularly irregular rhythm. RESPIRATORY: Moving air well bilaterally. No wheezing. Gastrointestinal: Abdomen is softer, not as distended. No tenderness to palpation except around incision site and incision site ekrvin are in place. Clean, dry, intact. No signs of infection. Bowel sounds are hypoactive. Extremities: No clubbing, cyanosis, or edema. Neuro: Nonfocal. Laboratory Data: Sodium 145, potassium 3.7, chloride 115, CO2 19, BUN 24, creatinine 1, glucose 138, calcium 8.3, INR 1.39. WBC 26, H and H 12 and 37.2, platelets 428, neutrophils 87%. CEA is 1. Blood cultures, no growths final. Assessment And Plan: An 82-year-old male with: 1. Colonic cancer, status post right hemicolectomy. 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 The patient will be following with Dr. Earl with Oncology as outpatient for further workup and treatment. 2. Non-intractable nausea and vomiting, resolved. 3. Volume depletion, improved. 4. Possible ileus versus small bowel obstruction. Postop, the patient is not having much gas and not passing flatus. Consider CT scan of the abdomen. The patient is tolerating liquid diet. 5. Chronic obstructive pulmonary disease, chronic bronchitis, stable. 6. Chronic atrial fibrillation, now with controlled ventricular rate. Continue beta-blockers, digoxin. The patient is on therapeutic Lovenox. We will start on newer anticoagulation agent. 7. Diabetes mellitus type 2 with non long-term use of insulin with hyperglycemia. Continue Accu-Chek and sliding scale insulin. 8. Mixed hyperlipidemia. Continue statin. 9. Essential hypertension, stable. 10. Plan, obtain CT scan of the abdomen, switch over anticoagulants. SA/MODL Voice ID: [id number] Report ID: [id number] DREW
[2018-02-09] MEDS: METRONIDAZOLE 500mg IVPB 500 MG/100 ML BAG IV SCH ×5 (00:36→23:54)
[2018-02-09 05:16] LABS: Absolute Lymphocytes (CBC) 0.8 K/uL (0.7-4.9); Absolute Monocytes 1.7 K/uL (0.1-1.3); Absolute Neutrophil 14.1 K/uL (1.8-8.0); Basophils % 0.3 % (0-1.3); Eosinophils % 0.2 % (0-4.4); Hematocrit 32.5 % (39.6-49.0); Lymphocytes % 4.6 % (15.3-44.8); MPV 9.3 fL (7.6-11.3); Monocytes % 10.4 % (3.3-12.3); RBC Red Blood Cell Count 3.64 M/uL (4.33-5.43)
[2018-02-09] MEDS: NA CHLORIDE 0.9% 1,000 ML IV SCH ×3 (05:42→21:27)
[2018-02-09 05:49] LABS: Magnesium 1.9 mg/dL (1.8-2.4); Potassium 3.7 mmol/L (3.5-5.1)
[2018-02-09 05:51] LABS: Phosphorus 0.9 mg/dL (2.5-4.9)
[2018-02-09] MEDS ORDERED: POTASSIUM PHOS 30 MM in NA CHLORIDE 0.9% 500 ML IV ONE (06:00)
[2018-02-09] MEDS: INSULIN -REGULAR HUMAN 50 UNIT/0.5 ML ML SQ SCH ×4 (07:30→21:00)
[2018-02-09] MEDS: GLIMEPIRIDE 2 MG TABLET PO SCH (09:11)
[2018-02-09] MEDS: APIXABAN 5 MG TABLET PO SCH ×2 (10:13→21:28)
[2018-02-09] MEDS: DIGOXIN 0.25 MG TABLET PO SCH (10:13)
[2018-02-09] MEDS: Levofloxacin 250mg IV 250 MG/50 ML BAG IV SCH (10:14)
[2018-02-09] MEDS: CARVEDILOL 6.25 MG TAB PO SCH ×2 (10:14→21:28)
--- NOTE | 2018-02-09 18:40 | PN ---
Date of Progress Note: 02/09/2018 Subjective: The patient is seen and examined. Chart reviewed and case discussed with RN. The patient apparently has been refusing to walk with physical therapy, citing weakness. The patient was encouraged to ambulate. The patient states that he is not passing much gas and has not had any bowel movements. Medications: List reviewed. Physical Examination: Vital Signs: Temperature 97.5, heart rate 91, blood pressure 100/61, respirations 16, O2 of 94% on room air. General: Awake, alert, oriented x3. Some mild distress. Elderly male, ill- appearing. CV: S1, S2. Irregularly irregular. Peripheral pulses present. Respiratory: Moving air well bilaterally. No wheezing. Gastrointestinal: Abdomen is distended. Mild tenderness to palpation around the incision site. Bowel sounds are hypoactive. Extremities: No clubbing, cyanosis, or edema. Neurologic: Nonfocal. Skin: Abdominal incision site clean, dry, intact. Emi in place. Laboratory Data: Sodium 147, potassium 3.7, chloride 116, CO2 23, BUN 29, creatinine 0.97, glucose 118, calcium 7.8, phosphorus 0.9, magnesium 1.9. WBC 16.7, H and H 11.1 and 32.5, platelets 348, neutrophils 84%. Blood cultures, no growth final. Abdomen and pelvis CT without contrast shows right hemicolectomy. Mild small bowel dilatation, probably representing an adynamic ileus, early partial mechanical obstruction is less likely. Moderate gastric distention. Small amount of pneumoperitoneum, likely sequela of prior surgery. [id number] amount of ascites within the right paracolic gutter. Assessment And Plan: An 82-year-old male with: 1. Colon cancer, status post right hemicolectomy secondary to moderately differentiated colonic adenocarcinoma with metastatic adenocarcinoma involving 1 of 13 regional lymph nodes. The patient to follow Dr. Earl, Oncology, as outpatient for further workup and treatment. Dr. Vang on the case. 2. Postop ileus. We will encourage the patient to ambulate. We will replace phosphorus and monitor electrolytes. 3. Hypophosphatemia. Replace and monitor. 4. Non-intractable nausea and vomiting, resolved. 5. Chronic obstructive pulmonary disease, chronic bronchitis, stable. 6. Chronic atrial fibrillation, controlled ventricular rate. We will continue beta-blockers and digoxin. The patient is switched over to Eliquis. We will monitor H and H. 7. Diabetes mellitus type 2 with hyperglycemia without long-term use of insulin. We will continue sliding scale insulin and monitor Accu-Cheks. 8. Mixed hyperlipidemia. Continue statin. 9. Essential hypertension, stable. 10. Plan: Encourage ambulation. Monitor electrolytes. /CHETNA Voice ID: [id number] Report ID: [id number] [facility]PITALTiffanie
[2018-02-09] MEDS ORDERED: POTASS/SODIUM PHOSPHATE 1 PKT POWD.PACK PO SCH (19:00)
[2018-02-09] MEDS: MORPHINE 4 MG/ML SYR IV PRN (21:23)
[2018-02-09] MEDS: POTASS/SODIUM PHOSPHATE 1 PKT POWD.PACK PO SCH ×3 (21:26→22:01)
[2018-02-09] MEDS: ATORVASTATIN 20 MG TAB PO SCH (21:29)
[2018-02-10] MEDS: MORPHINE 4 MG/ML SYR IV PRN (01:26)
[2018-02-10] MEDS: NA CHLORIDE 0.9% 1,000 ML IV SCH (01:34)
[2018-02-10] MEDS: ONDANSETRON 4 MG/2 ML VIAL IV PRN ×2 (01:34→20:25)
[2018-02-10] MEDS: HYDROCODONE/APAP 7.5/325 MG TAB PO PRN (05:00)
[2018-02-10] MEDS: METRONIDAZOLE 500mg IVPB 500 MG/100 ML BAG IV SCH ×3 (05:01→17:19)
[2018-02-10 06:25] LABS: Absolute Lymphocytes (CBC) 0.9 K/uL (0.7-4.9); Absolute Monocytes 1.6 K/uL (0.1-1.3); Absolute Neutrophil 13.9 K/uL (1.8-8.0); Basophils % 0.2 % (0-1.3); Eosinophils % 0.2 % (0-4.4); Hematocrit 36.7 % (39.6-49.0); Lymphocytes % 5.6 % (15.3-44.8); MPV 8.9 fL (7.6-11.3); Monocytes % 9.6 % (3.3-12.3); RBC Red Blood Cell Count 4.09 M/uL (4.33-5.43)
[2018-02-10 06:40] LABS: Magnesium 2.1 mg/dL (1.8-2.4); Phosphorus 2.4 mg/dL (2.5-4.9); Potassium 4.2 mmol/L (3.5-5.1)
[2018-02-10] MEDS: INSULIN -REGULAR HUMAN 50 UNIT/0.5 ML ML SQ SCH ×4 (07:30→20:24)
[2018-02-10] MEDS: DIGOXIN 0.25 MG TABLET PO SCH (09:07)
[2018-02-10] MEDS: GLIMEPIRIDE 2 MG TABLET PO SCH (09:09)
[2018-02-10] MEDS: POTASS/SODIUM PHOSPHATE 1 PKT POWD.PACK PO SCH ×3 (09:09→12:01)
[2018-02-10] MEDS: APIXABAN 5 MG TABLET PO SCH ×2 (09:10→20:22)
[2018-02-10] MEDS: CARVEDILOL 6.25 MG TAB PO SCH ×2 (09:11→20:22)
[2018-02-10] MEDS: Levofloxacin 250mg IV 250 MG/50 ML BAG IV SCH (09:13)
[2018-02-10] MEDS ORDERED: NA CHLORIDE 0.9% 1,000 ML IV SCH (10:00)
--- NOTE | 2018-02-10 15:50 | PN ---
Date of Progress Note: 02/10/2018 Subjective: The patient is seen and examined. Chart reviewed and case discussed with RN and Dr. Maren sheth. The patient is very reluctant to get out of bed, but did work with PT yesterday. The pain is controlled. The patient is passing some gas. Medications: List reviewed. Physical Examination: Vital Signs: Temperature 97.4, heart rate 93, blood pressure 93/63, respirations 22, O2 94% on room air. General: Awake, alert, oriented x3. No acute distress. Elderly male, obese. CV: S1, S2. Irregularly irregular. Peripheral pulses present. Respiratory: Moving air well bilaterally. No wheezing. Gastrointestinal: Abdomen is soft. No distention. Bowel sounds hypoactive. Incision site clean, d ry, intact. Extremities: No clubbing, cyanosis, or edema. Neuro: Nonfocal. Laboratory Data: Sodium 148, potassium 4.2, chloride 115, CO2 23, BUN 35, creatinine 1.22, glucose 1 35, calcium 8.2, phosphorus 2.4, magnesium 2.1. WBC 16.5, H and H 12.3 and 36.7, platelets 383, neut rophils 84.4%. Blood cultures negative. Assessment And Plan: An 82-year-old male with: 1.Colon cancer, status post right hemicolectomy secondary to moderately differentiated colonic adeno carcinoma with metastatic adenocarcinoma involving 1 of 13 regional lymph nodes. The patient will fo llow up with Dr. Earl, oncologist, as an outpatient for further workup and treatment. Appreciate Dr. Vang's input. 2.Postop ileus, likely secondary to electrolyte abnormalities. We will replace phosphorus and monit or. Encourage the patient to ambulate. 3.Hypophosphatemia. We will replace and monitor. 4.Hypernatremia. Will discontinue IV fluids. 5.Non-intractable nausea and vomiting, resolved. 6.Chronic obstructive pulmonary disease, chronic bronchitis, stable. 7.Chronic atrial fibrillation, controlled ventricular rate. Continue digoxin and beta-blockers. Th e patient is doing well on Eliquis. 8.Diabetes mellitus type 2 with hyperglycemia without long-term use of insulin. 9.Mixed hyperlipidemia. We will continue statin. 10.Essential hypertension. 11.Plan: Encourage ambulation. We will provide gum for chewing. Monitor electrolytes. The patien t may end up needing rehab. The patient has been switched over to Eliquis, was initially on Coumadin . We will need to confirm with his pharmacy regarding his co-pay in order to ensure the patient can take the medication and is able to afford it. The patient follows with Dr. Graham, who will be back on February 12. Transfer of service will occur at that time. JACOBY Voice ID: [id number] Report ID: [id number]
[2018-02-10] MEDS: ATORVASTATIN 20 MG TAB PO SCH (20:22)
[2018-02-10] MEDS ORDERED: ZOLPIDEM TARTRATE 5 MG TABLET PO ONE (21:00)
[2018-02-10] MEDS ORDERED: SODIUM CHLORIDE 0.9% 10ML INJ IV PRN (21:44)
[2018-02-10] MEDS ORDERED: METOCLOPRAMIDE 10 MG/2mL INJ IV ONE (21:52)
[2018-02-10] MEDS: PANTOPRAZOLE 40 MG INJ IVP SCH ×2 (22:17→22:20)
[2018-02-10] MEDS: D5W 1,000 ML IV SCH (23:06)
[2018-02-10] MEDS: SIMETHICONE 80 MG TAB PO PRN (23:14)
[2018-02-11] MEDS: METRONIDAZOLE 500mg IVPB 500 MG/100 ML BAG IV SCH ×4 (01:02→17:28)
[2018-02-11 05:58] LABS: Absolute Lymphocytes (CBC) 0.9 K/uL (0.7-4.9); Absolute Monocytes 2.2 K/uL (0.1-1.3); Absolute Neutrophil 16.3 K/uL (1.8-8.0); Basophils % 0.1 % (0-1.3); Eosinophils % 0.1 % (0-4.4); Hematocrit 35.8 % (39.6-49.0); Lymphocytes % 4.7 % (15.3-44.8); MPV 9.7 fL (7.6-11.3); Monocytes % 11.4 % (3.3-12.3)
[2018-02-11 06:50] LABS: Potassium 4.1 mmol/L (3.5-5.1)
[2018-02-11] MEDS: INSULIN -REGULAR HUMAN 50 UNIT/0.5 ML ML SQ SCH ×4 (07:30→21:00)
--- NOTE | 2018-02-11 07:51 | RAD REPORT ---
EXAM DESCRIPTION: RAD - Abdomen 1 View (KUB) - 02/10/2018 11:02 pm CLINICAL HISTORY: Abdominal pain, ileus A preliminary report was provided at the time of the study and reviewed prior to final report. COMPARISON: CT February 08. FINDINGS: No dilated bowel loops seen. Air-filled, distended small bowel loops are present. Contrast opacified stool is present filling but not dilating the sigmoid and descending portions of the colon . Skin kervin are seen along the midline. No abnormal free air collection. No suspicious calcificati ons. Pleural effusions are still evident but not fully assessed. No air visible in the stomach to ass ess gastric size. No new bone finding. IMPRESSION: Ileus pattern remains. Pattern does appear improved from February 08 Contrast opacified stool volume in the left side of the colon has not changed. Stomach cannot be further assessed on this study.
[2018-02-11] MEDS: DIGOXIN 0.25 MG TABLET PO SCH (08:47)
[2018-02-11] MEDS: PANTOPRAZOLE 40 MG INJ IVP SCH (08:47)
[2018-02-11] MEDS: GLIMEPIRIDE 2 MG TABLET PO SCH (08:48)
[2018-02-11] MEDS: APIXABAN 5 MG TABLET PO SCH ×2 (08:48→21:51)
[2018-02-11] MEDS: CARVEDILOL 6.25 MG TAB PO SCH ×2 (08:49→21:00)
[2018-02-11] MEDS: Levofloxacin 250mg IV 250 MG/50 ML BAG IV SCH (08:49)
--- NOTE | 2018-02-11 14:18 | P.PN ---
Subjective Date of Service: 02/08/18 Chief Complaint: nausea, vomiting, colonic mass, s/p R hemicolectomy, s/p SB resection Subjective: No new changes Review of Systems General: Unremarkable Eyes: Unremarkable Respiratory: Dry (no), Shortness of Breath (no) Cardiovascular: Chest Pain (no) Gastrointestinal: Vomiting (no), Distention (mild), As per HPI Physical Examination - Vital Signs Temperature: 97.3 F Blood Pressure: 101/58 Pulse: 86 Respirations: 20 Pulse Ox (%): 95 - Physical Exam General: Alert, In no apparent distress, Oriented x3, Cooperative HEENT: PERRLA Respiratory: Normal air movement Integumentary: No rashes, No breakdown Neurological: Normal speech - Studies Imagings Data: CT scan reviewed with pt Medications List Reviewed: Yes Assessment And Plan - Plan continue same diet we will advance when ileus improved OOB Repeat WBC in am incentive spirometry cont abx
--- NOTE | 2018-02-11 14:22 | P.PN ---
Subjective Date of Service: 02/09/18 Chief Complaint: s/p R hemicolectomy, s/p SB resection Subjective: No new changes (decreased WBC) Review of Systems General: Unremarkable Respiratory: Unremarkable Gastrointestinal: Nausea (o), Vomiting (no), Abdominal Pain (o), No Distention, Melena (no), Hematochezia (no), As per HPI Genitourinary: Dysuria (no) Physical Examination - Vital Signs Temperature: 97.3 F Blood Pressure: 101/58 Pulse: 86 Respirations: 20 Pulse Ox (%): 95 - Physical Exam General: Alert, In no apparent distress, Oriented x3, Cooperative HEENT: PERRLA, EOMI Respiratory: Normal air movement Cardiovascular: No edema Gastrointestinal: Hypoactive, Soft and benign, Non-distended, Other (intact surgical site) - Studies wbc better Medications List Reviewed: Yes Assessment And Plan - Plan full liquid diet OOB incentive spirometry cont abx
--- NOTE | 2018-02-11 15:14 | PN ---
Date of Progress Note: 02/11/2018 Diagnoses: Status post right hemicolectomy and small bowel resection for colon cancer. History: The patient is doing good. He was feeling distention yesterday, he feels better today, pas sing some gas. WBC count is improving. He is in no distress. Review of Systems: Ten points otherwise remarkable treated. Physical Examination: General: The patient is awake and alert. Chest: Bilateral breath sounds. Abdomen: Soft and depressible. No guarding or rebound. The incision intact. Bowel sounds diminish ed. Extremities: Good capillary refill. Laboratory Data: Blood work shows WBC count of 19.4 with platelets of 316. It was up to 26 at one p oint, WBC count. Chloride is 113, potassium is 4.1. KUB from 02/10/2018 is seen showing some ileus pattern remain. Assessment/plan: This is an 82-year-old patient, status post 2 bowel resections, colon cancer. We e ncouraged patient ambulation, incentive spirometry. We are going to continue with the antibiotics. For that ileus, he feels good, he is passing gas, he is trying to see if he can get out of the only l iquid diet, so we are going to go soft diet, although I asked him to go with small meals instead of a big advance. We encouraged early ambulation because that will help us also to weak up that ileus, a nd also just a minimal needed for pain control. The stools in the left side they are present but has not changed much and it is mainly in the small bowel when we have this bowel distention. So, we are not any give any stoo l softeners at this time. SREE/CHETNA Voice ID: [id number] Report ID: [id number]
--- NOTE | 2018-02-11 17:25 | P.PN ---
Subjective Date of Service: 02/11/18 Primary Care Provider: Dr. Graham Chief Complaint: s/p R hemicolectomy, s/p SB resection Subjective: No new changes, No C/O voiced, Improving Patient seen and examined at bedside. No family at bedside. Chart reviewed and case discussed with nursing staff. Review of Systems 10-point ROS is otherwise unremarkable Physical Examination - Vital Signs Temperature: 97.3 F Blood Pressure: 101/58 Pulse: 86 Respirations: 20 Pulse Ox (%): 95 - Physical Exam General: Alert, In no apparent distress, Oriented x3 HEENT: Atraumatic, PERRLA, EOMI Neck: Supple, JVD not distended Respiratory: Clear to auscultation bilaterally, Normal air movement Cardiovascular: Regular rate/rhythm, Normal S1 S2 Gastrointestinal: Normal bowel sounds, Other (Incision clear, dry and intact.), Tenderness Musculoskeletal: No tenderness Integumentary: No rashes Neurological: Normal speech, Normal tone, Normal affect Lymphatics: No axilla or inguinal lymphadenopathy - Studies Medications List Reviewed: Yes Assessment And Plan - Plan This is a 82-year-old male with: Colon cancer, status post right hemicolectomy secondary to moderately differentiated colonic adenocarcinoma with metastatic adenocarcinoma involving 1 of 13 regional lymph nodes. The patient will follow up with Dr. Earl, oncologist, as an outpatient for further workup and treatment. Appreciate Dr. Vang's input. Postop ileus, likely secondary to electrolyte abnormalities. Encouraged the patient to ambulate. Hypophosphatemia. We will replace and monitor. Hypernatremia. Will discontinue IV fluids. Non-intractable nausea and vomiting, resolved. Chronic obstructive pulmonary disease, chronic bronchitis, stable. Chronic atrial fibrillation, controlled ventricular rate. Continue digoxin and beta-blockers. The patient is doing well on Eliquis. Diabetes mellitus type 2 with hyperglycemia without long-term use of insulin. Mixed hyperlipidemia. We will continue statin. Essential hypertension. Plan: Encourage ambulation. Provided gum for chewing. Per surgery, made advance patient to own GI soft diet. Educated patient on eating small portions , backing off if not able to tolerate diet. Monitor electrolytes. The patient may end up needing rehab. The patient has been switched over to Eliquis, was initially on Coumadin. We will need to confirm with his pharmacy regarding his co-pay in order to ensure the patient can take the medication and is able to afford it. The patient follows with Dr. Graham, who will be back on February 12. Transfer of service will occur at that time.
[2018-02-11] MEDS: D5W 1,000 ML IV SCH (19:00)
[2018-02-11] MEDS: ATORVASTATIN 20 MG TAB PO SCH (21:52)
[2018-02-12] MEDS: METRONIDAZOLE 500mg IVPB 500 MG/100 ML BAG IV SCH ×2 (00:45→05:35)
[2018-02-12] MEDS: D5W 1,000 ML IV SCH (00:45)
[2018-02-12 05:56] LABS: Absolute Lymphocytes (CBC) 0.9 K/uL (0.7-4.9); Absolute Monocytes 2.3 K/uL (0.1-1.3); Absolute Neutrophil 20.2 K/uL (1.8-8.0); Basophils % 0.2 % (0-1.3); Eosinophils % 0.3 % (0-4.4); Hematocrit 31.9 % (39.6-49.0); Lymphocytes % 3.9 % (15.3-44.8); MPV 9.7 fL (7.6-11.3); Monocytes % 9.8 % (3.3-12.3); RBC Red Blood Cell Count 3.53 M/uL (4.33-5.43)
[2018-02-12 06:05] LABS: Albumin 1.8 g/dL (3.4-5.0); Bilirubin Total 0.8 mg/dL (0.2-1.0); Magnesium 2.1 mg/dL (1.8-2.4); Potassium 3.8 mmol/L (3.5-5.1); Protein, Total 4.3 g/dL (6.4-8.2)
[2018-02-12] MEDS: INSULIN -REGULAR HUMAN 50 UNIT/0.5 ML ML SQ SCH ×2 (07:30→11:30)
[2018-02-12] MEDS ORDERED: POTASSIUM CL SA 10 MEQ TAB PO ONE (08:00)
[2018-02-12] MEDS: GLIMEPIRIDE 2 MG TABLET PO SCH (08:00)
[2018-02-12] MEDS ORDERED: NA CHLORIDE 0.9% 500 ML ONE (08:33)
[2018-02-12] MEDS: APIXABAN 5 MG TABLET PO SCH (09:00)
[2018-02-12] MEDS ORDERED: PIPER/TAZO/NS 3.375gm 3.375 GM/100 ML BAG IVPB SCH (09:00)
[2018-02-12] MEDS: DIGOXIN 0.25 MG TABLET PO SCH (09:00)
[2018-02-12] MEDS: CARVEDILOL 6.25 MG TAB PO SCH (09:00)
[2018-02-12 09:02] LABS: Blood Morphology Comment NOT SEEN (NOT SEEN); Platelet Estimate ADEQ
--- NOTE | 2018-02-12 09:19 | RAD REPORT ---
EXAM DESCRIPTION: RAD - Chest Single View - 02/12/2018 8:39 am CLINICAL HISTORY: Leukocytosis, possible pneumonia COMPARISON: Lung base images from CT study February 08 TECHNIQUE: AP portable chest image was obtained 0830 hours . FINDINGS: Patient has a baseline interstitial lung pattern that is prominent. There is hazy increase d opacification in the lower left lung field in addition to left greater than right small pleural eff usions. Heart size is upper normal. Pulmonary vasculature within normal limits. No pneumothorax. No a cute bony abnormality seen. No acute aortic findings suspected. IMPRESSION: Left greater than right small pleural effusions with left base atelectasis. Opacification extending upward into the mid left lung field is suspicious for early pneumonia.
[2018-02-12] MEDS ORDERED: NA CHLORIDE 0.9% 250 ML ONE ×2 (09:35→10:00)
[2018-02-12] MEDS ORDERED: DEXTROSE 10%-WATER 500 ML IV SCH (09:45)
[2018-02-12 10:52] LABS: Arterial Blood Carboxyhemoglob 1.6 % (0-1.5); Blood Gas Oxyhemoglobin 90.2 % (94-97)
[2018-02-12] MEDS: PANTOPRAZOLE 40 MG INJ IVP SCH (11:09)
[2018-02-12 11:30] LABS: Absolute Lymphocytes (CBC) 0.6 K/uL (0.7-4.9); Absolute Monocytes 1.8 K/uL (0.1-1.3); Absolute Neutrophil 17.5 K/uL (1.8-8.0); Basophils % 0.1 % (0-1.3); Eosinophils % 0.4 % (0-4.4); Hematocrit 30.6 % (39.6-49.0); Lymphocytes % 2.9 % (15.3-44.8); MPV 9.8 fL (7.6-11.3); Monocytes % 9.1 % (3.3-12.3); RBC Red Blood Cell Count 3.39 M/uL (4.33-5.43)
[2018-02-12] MEDS ORDERED: NALOXONE HCL 2 MG/2 ML VIAL IV ONE (11:57)
[2018-02-12 11:59] LABS: Potassium 3.3 mmol/L (3.5-5.1)
[2018-02-12] MEDS ORDERED: NOREPINEPHRINE 4 MG in D5W 250 ML IV PRN (12:05)
[2018-02-12] MEDS ORDERED: NALOXONE HCL 2 MG/2 ML VIAL ONE (12:08)
[2018-02-12] MEDS ORDERED: NA CHLORIDE 0.9% 500 ML IV ONE (12:08)
[2018-02-12 12:10] LABS: Urine Appearance CLEAR; Urine Bilirubin NEGATIVE (NEG); Urine Blood 1+ (NEG); Urine Color DK YELLOW; Urine Glucose TRACE (NEG); Urine Protein NEGATIVE (NEG); Urine Specific Gravity 1.025 (1.005-1.030); Urine Urobilinogen 0.2 mg/dL (0.2-1.0)
[2018-02-12] MEDS ORDERED: THIAMINE 200 MG/2 ML INJ IVP SCH (12:12)
[2018-02-12] MEDS ORDERED: Pharmacy Consult 1 EA XX PRN (12:13)
--- NOTE | 2018-02-12 12:14 | P.CNS ---
Date of Consult: 02/12/18 Primary Care Provider: Dr. Graham Chief Complaint: Altered mental status hypoxemia History of Present Illness: Patient is 82 years of age transfer to the ICU for altered mental status and hypoxemia in addition to low blood pressure he was initially admitted underwent a colonic resection for colon cancer currently unresponsive this occurred all of a sudden currently he was communicating and talking in the morning now is not moving his right arm Allergies No Known Allergies Allergy (Unverified 02/02/18 16:17) Home Medications: Digoxin [Lanoxin] 250 mcg PO DAILY 02/02/18 Ferrous Sulfate [Feosol] 325 mg PO DAILY 02/02/18 Glimepiride 1 mg PO DAILY 02/02/18 Ramipril [Altace] 2.5 mg PO DAILY 02/02/18 Simvastatin 40 mg PO BEDTIME 02/02/18 Spironolactone [Aldactone] 25 mg PO DAILY 02/02/18 Warfarin Sodium 1 mg PO SEECOM 02/02/18 Warfarin Sodium 2 mg PO SEECOM 02/02/18 - Past Medical/Surgical History Diabetic: Yes -: NIDDM -: chronic a.fib -: HTN -: Dyslipidemia -: Anemia -: chronic anemia -: Recent diagnosis of colon cancer -: hernia repair -: Right hemicolectomy - Social History Alcohol use: No CD- Drugs: No Caffeine use: Yes Place of Residence: Home Review of Systems is unable to be obtained Physical Examination Temp Pulse Resp BP Pulse Ox 97.2 F 73 16 99/51 L 97 02/12/18 08:00 02/12/18 08:00 02/12/18 08:00 02/12/18 08:00 02/12/18 08:00 General: Unresponsive HEENT: Atraumatic Neck: Supple Respiratory: Clear to auscultation bilaterally, Diminished Cardiovascular: No edema, Irregular heart rate/rhythm Gastrointestinal: Hypoactive, Non-distended Neurological: Other (Patient unresponsive not moving his right arm) - Problems (1) Hypoxemia Current Visit: Yes Status: Acute Plan: Patient is 82 years of age status post right-sided hemicolectomy for colon cancer once for to the ICU for hypoxemia hypotension his hypercapnic renal insufficiency creatinine is improving blood cultures so far negative chest x- ray possible effusion on the left side white count elevated but is declining patient on Zosyn patient was on Levaquin and Flagyl I have ordered repeat blood cultures added vancomycin recently documented to have loose stools (2) Stroke Current Visit: Yes Status: Acute Plan: STAT Ct of head patient is not responsive wing is right are he has positive plantar reflexes on both his feet Qualifiers: CVA mechanism: unspecified Qualified Code(s): I63.9 - Cerebral infarction, unspecified
[2018-02-12 12:26] LABS: Urine Bacteria <20 /HPF (NONE SEEN); Urine RBC <5 /HPF (NONE SEEN)
[2018-02-12 12:27] LABS: Urine Amorphous Sediment 1+ /HPF (NONE SEEN); Urine Culture Reflex Order NOT NEEDED
[2018-02-12] MEDS ORDERED: VANCOMYCIN 1.75 GM in NA CHLORIDE 0.9% 500 ML IVPB SCH (13:00)
--- NOTE | 2018-02-12 13:08 | RAD REPORT ---
EXAM DESCRIPTION: CT - Ct Stroke Brain Wo Cont - 02/12/2018 12:57 pm CLINICAL HISTORY: Possible stroke CVA symptomology COMPARISON: Chest Single View dated 02/12/2018 TECHNIQUE: All CT scans are performed using dose optimization technique as appropriate and may inclu de automated exposure control or mA/KV adjustment according to patient size. FINDINGS: No intracranial hemorrhage, hydrocephalus or extra-axial fluid collection.Subtle diminishe d density is seen in the left insular cortex/left temporal lobe which could be related to acute ische ritesh in the distribution of the left MCA. The paranasal sinuses and mastoids are clear. The calvarium is intact. IMPRESSION: Subtle diminished density is seen in the left insular cortex and left temporal lobe rais ing suspicion for left-sided MCA territory acute nonhemorrhagic infarct. MR imaging could be obtaine d for further assessment. Findings were discussed with Dr. Tony at 1 p.m. 02/12/2018 by telephone.
--- NOTE | 2018-02-12 13:12 | RAD REPORT ---
EXAM DESCRIPTION: CT - Abdomen Pelvis Wo Contrast - 02/12/2018 1:00 pm CLINICAL HISTORY: Abdominal pain. Status post partial colectomy COMPARISON: Abdomen Pelvis Wo Contrast dated 02/08/2018; Abdomen Pelvis W Contrast dated 018 TECHNIQUE: CT imaging of the abdomen and pelvis was performed without contrast. Solid organ, bowel a nd vascular assessment is limited due to lack of IV and oral contrast. All CT scans are performed using dose optimization technique as appropriate and may include automated exposure control or mA/KV adjustment according to patient size. FINDINGS: Bilateral small pleural effusions are noted with compressive atelectasis in both lung base s posteriorly. The stomach appears distended with fluid. Multiple mildly prominent small bowel loops also noted, imp roved since comparative study. Right hemicolectomy changes are noted with mild free fluid in the abdo men pelvis. Small amount of residual postsurgical pneumoperitoneum is noted. Midline laparotomy skin kervin seen. A bowel obstruction is not present. The liver, spleen, adrenal glands and kidneys show no acute proce ss. Small caliceal stones are present bilaterally. Aortic atherosclerosis is present. The osseous structures are within normal limits. IMPRESSION: No acute finding is demonstrated since 02/08/2018 study. The degree of ileus previously noted has improved mildly. Small bilateral pleural effusions with atelectasis in both posterior lung bases. A limited non-contrast examination was performed as detailed.
--- NOTE | 2018-02-12 13:19 | RAD REPORT ---
EXAM DESCRIPTION: CT - Head angio - 02/12/2018 1:06 pm CLINICAL HISTORY: R/O Stroke CVA symptomology COMPARISON: Ct Stroke Brain Wo Cont dated 02/12/2018; Abdomen Pelvis Wo Contrast dated 02/12/2018; Abd omen Pelvis Wo Contrast dated 02/08/2018; Abdomen Pelvis W Contrast dated 02/02/2018 TECHNIQUE: CT angiography of the head was performed with MIPs. All CT scans are performed using dose optimization technique as appropriate and may include automated exposure control or mA/KV adjustment according to patient size. FINDINGS: No evidence of aneurysm is detected. Significant diminished flow is seen with relatively a brupt caliber change of the left M1 segment noted (image [id number]). M2, M3 and M4 branches on the left show moderately diminished flow. The findings support acute ischemia involving the left MCA territory . Generalized moderately diminished flow involving the left intracranial ICA is present. No significa nt flow abnormality seen on the right. Antegrade flow is seen in the vertebral arteries. The vertebral arteries are codominant. The visualized dural venous sinuses are patent. IMPRESSION: Moderately diminished left intracranial ICA blood flow with finding supporting acute isc hemia involving the left middle cerebral artery territory as detailed above.
[2018-02-12] MEDS ORDERED: KCL 20 MEQ/100 mL IVPB 20 MEQ/100 ML BAG IV SCH (14:00)
--- NOTE | 2018-02-12 15:18 | ECHO ---
HEIGHT: 5 ft 10 in WEIGHT: 220 lb 8 oz DATE OF STUDY: 02/12/[address]: 2-DIMENSIONAL: YES M.MODE: YES DOPPLER: YES COLOR FLOW: YES TDS: YES PORTABLE: NO DEFINITY: NO BUBBLE STUDY: NO DIAGNOSIS: HYPOXEMIA CARDIAC HISTORY: CATHERIZATION: SURGERY: PROSTHETIC VALVE: PACEMAKER: MEASUREMENTS (cm) DIASTOLIC (NORMALS) SYSTOLIC (NORMALS) IVSd 1.1 (0.6-1.2) LA Diam 4.1 (1.9-4.0) LVEF 70% LVIDd 4.1 (3.5-5.7) LVIDs 2.5 (2.0-3.5) %FS 39% LVPWd 1.2 (0.6-1.2) Ao Diam 3.3 (2.0-3.7) 2 DIMENSIONAL ASSESSMENT: RIGHT ATRIUM: NORMAL LEFT ATRIUM: DILATED RIGHT VENTRICLE: NORMAL LEFT VENTRICLE: NORMAL TRICUSPID VALVE: NORMAL MITRAL VALVE: NORMAL PULMONIC VALVE: NORMAL AORTIC VALVE: SCLEROSIS MILD PERICARDIAL EFFUSION: NONE AORTIC ROOT: NORMAL LEFT VENTRICULAR WALL MOTION: NORMAL. DOPPLER/COLOR FLOW: TRACE TRICUSPID REGURGITATION. NORMAL RIGHT VENTRICULAR SYSTOLIC PRESSURE. NO AORTIC STENOSIS OR AORTIC REGURGITATION. COMMENTS: NORMAL LEFT VENTRICULAR EJECTION FRACTION. DILATED LEFT ATRIUM. AORTIC SCLEROSIS WITH NO AORTIC STENOSIS OR AORTIC REGURGITATION. TRACE TRICUSPID REGURGITATION. ATRIAL FIBRILLATION 70-90 BEATS PER MINUTE. TECHNOLOGIST: DEEDEE GRAFF
--- NOTE | 2018-02-12 15:18 | EKG ---
Test Date: 2018-02-12 Test Time: 09:22:50 [employer]crete Plant Laborer: TALA MEASUREMENT RESULTS: Intervals: Rate: 70 UT: QRSD: 94 QT: 478 QTc: 516 [place]: P: UT: QRS: 67 T: -55 INTERPRETIVE STATEMENTS: Atrial fibrillation ST & T wave abnormality, consider anterior ischemia or digitalis effect Prolonged QT Abnormal ECG Compared to ECG 02/05/2018 14:40:08 Prolonged QT interval now present ST (T wave) deviation still present Possible ischemia still present Electronically Signed On 02-12-18 15:17:44 [employer] C[employer] OFFICER by Tate Singleton
[2018-02-12] MEDS ORDERED: D50W 25 GM/50 ML SYRINGE IV ONE (15:36)
[2018-02-12] MEDS ORDERED: APIXABAN 5 MG TABLET PO SCH (21:00)
--- NOTE | 2018-02-12 22:34 | CON ---
Consultation called by Dr. Graham because of possible stroke. History Of Present Illness: Mr. Ware is an 82-year-old patient who was admitted to the hospital end of January last year for small bowel obstruction, found to have a colonic mass and is status post h emicolectomy. The patient was recovering well and earlier this morning, he saw Dr. Graham. Dr. Graham a ctually said the patient interacted normally, moves arms and legs appropriately. This was early in t he morning and subsequently perhaps around 9 a.m. or shortly thereafter, the patient became poorly re sponsive, not following instructions, his right arm became weak, right face became weak. Stat head C T scan was ordered and the patient was identified to have a left middle cerebral artery M1 distributi on type stroke. It was ischemic and nonhemorrhagic. CT angiogram of the head identified an abrupt c hange in caliber of the left M1 segment and there was moderately diminished flow in the M2, M3, and M 4 branches of the left middle cerebral artery. There was also generalized diminished involvement of the left intracranial artery, but no significant flow abnormality seen otherwise. The finding was of an acute ischemic event involving left middle cerebral artery territory. The nature of this event a nd the patient's recent surgery prohibited him from receiving large volume intravenous thrombolytic t reatment. As a result for higher level of care, potentially for an intravascular procedure, the ferrari er team was consulted at [facility] and after discussion with the neurologist at [facility], it was decided that the patient should be transferred for more appropriate care which could potential ly involve 4-vessel angiogram and interventional procedure to help him to best recover. It should be noted that the patient has a history of atrial fibrillation and was on Coumadin prior to surgery. Following surgery was put on Eliquis. He did have also episodes of signi ficant hypotension with a mean arterial pressure from review of his ICU notes down to lowest of aroun d 51. Once it was determined the patient had a possible stroke, instructed to have the patient's blo od pressure be raised with fluids and pressors to try to achieve above 120 systolic, say 140 if possi ble. At the time I evaluated the patient, the family was at the bedside. He was moving the left arm and leg to command, but the right arm was not moving at all. Right leg showed movement just in the foot. No movement proximally. Right face showed no movement there. He also had his head turned to the left with eyes deviated towards the left. Past Medical History: Diabetes mellitus, chronic atrial fibrillation, chronic obstructive pulmonary disease, hypertension, dyslipidemia, chronic anemia. Surgical History: Hernia repair and colon resection as indicated. Allergies: NO KNOWN DRUG ALLERGIES. Family History: Noncontributory. Social History: He has a prior history of tobacco use. No recent tobacco use and no alcohol use. N o IV drug use. Home Medications: Digoxin 250 mg daily, ferrous sulfate 325 mg daily, glimepiride 1 mg daily, Altace 2.5 mg daily, simvastatin 40 mg daily, spironolactone 25 mg daily, and Coumadin alternating between 2 and 1 mg every other day. Review of Systems: Unable to complete properly as the patient is unable to follow instructions and speak verbally. Physical Examination: Vital Signs: Blood pressure up to 120/65, down to 102/55; pulse 78-91; respiratory rate around 21; t emperature 96.8; oxygen saturation 97-100%. Weight 222 pounds. Height 5 feet 10 inches, BMI 31.6. General: Mr. Barrera is resting in bed, sitting at the bedside. As indicated, he is normocephalic, at raumatic. Sclerae anicteric. Oropharynx is moist and pink. Neck: Supple. Chest: Clear. Abdomen: Soft. Extremities: Show no significant edema or cyanosis. Neurologic: The patient does nod his head to instructions, tend to pay attention to the left side of the room, neglects the right side. Head deviated to the left with eye deviated towards the left wit hout any rhythmic or chronic activity or nystagmus noted. Otherwise, cranial nerves show decrease of the right nasolabial fold, decrease excursion on attempted movements, unable to fully assess sensati on in the right or left, and was able to assess rather tongue or palate as shifted to one side versus the other. Very difficult to determine if the patient has a sensory deficit on the right versus lef t side. His motor examination, no movement detected in the right upper and lower extremities, proxim ally and distally to stimulation. In the right lower extremity, he has some minor withdrawal of the right foot, minor movement of the right leg around trace. His left upper and lower extremity moves f ully well to spontaneously and to command. I was unable to fully assess sensation in the left leg an d arm. Reflexes: Depressed diffusely. Coordination: Unable to assess on the right due to his weak ness and gait unable to assess as the patient is in ICU, unable to get him out of the bed at this poi nt. Note, NIH Stroke Scale is 20. Laboratory Studies: White blood cell count 20 to 23.5, hemoglobin 10.2, hematocrit 30.6, platelets 2 16. INR 1.39. Sodium 143, potassium 3.3, chloride 114, carbon dioxide 23, BUN 42, creatinine 1.36, glucose ranged from 60-131. Procalcitonin 0.43. Lactic acid 1.3. Urinalysis showed trace esterase, 1+ blood. Digoxin level 0.5. His echocardiogram showed ejection fraction 70%; dilated left atrium; aortic sclerosis, but no stenosis; trace tricuspid regurgitation and atrial fibrillation with 70 to 90 beats per minute. Chest x-ray, left greater than right small pleural effusions, opacity extending upward in the left lung base suspicious for early pneumonia. Abdomen and pelvis CT scan shows small bilateral pleural effusions. Assessment: Mr. Barrera is an 82-year-old patient with an acute left hemispheric stroke, episodes of s evere hypotension. History of atrial fibrillation, currently in atrial fibrillation. The stroke is in the M1 territory of the left middle cerebral artery. There is producing aphasia along with right- sided face, arm, and leg weakness and neglect, severe dysarthria, and possible dysphagia with aspirat ion and pneumonia. He does have elevated white count as well. Plan: Given the patient's acute nature of the stroke and recent surgery, not a candidate for [facility] no high-volume thrombolytic. The patient would be best served by possibly having intra-arterial pr ocedures after he is medically treated and stabilized in terms of his pressure and his pneumonia. He is currently treated with antibiotics per Dr. Graham with Levaquin and metronidazole. The patient was accepted by the transfer center and is being sent over to [facility]. Please note, he is also on Zosyn for his pneumonia. The patient should continue anticoagulation, which is currently Eliquis 5 mg twice daily and along with some permissive hypertension during the acute stroke phase, continue with high dose lipid, which he is at currently 20 mg Lipitor at bedtime and aggressive management of his blood sugars as well. JUDD/CHETNA Voice ID: [id number] Report ID: [id number]
--- NOTE | 2018-02-13 03:47 | DS ---
Date of Discharge: 02/12/2018 Disposition: The patient was transferred to [facility] for higher level of care. Physical Examination: General: This morning when I saw him, he was awake, alert, oriented, answering questions appropriate ly, communicating very well like his normal usual self and denied any abdominal pain, nausea, vomitin g, chest pain, shortness of breath, and he actually was having bowel movement when I saw him this mor phill. He reported having generalized weakness and we talked about working with the Physical Therapy to try to help improve his weakness and we were planning for possible discharge to go home some time this weekend obviously depending on his clinical condition. HEENT: Examination was unremarkable. Lungs: Clear to auscultation. Heart: Sounds normal. Abdomen: Soft. Bowel sounds normal. No guarding, rigidity, tenderness, or distention. Midline diamond gical scar with kervin present. No evidence of any gapping, discharge, bleeding, redness, swelling, etc. Extremities: No leg edema. Laboratory Data: Labs done during this hospitalization: Last white count this morning was 23.5, hem oglobin 10.4, platelets 240. Repeat white count later this morning was 20, hemoglobin 10.2, platelet s 216. His white count when he came in was 27.6 on February 02, 2018, and the lowest white count was February 05, 2018 and it was 11.3. His last chemistry today sodium 143, potassium 3.3, chloride 114 , bicarb 23, BUN 42, creatinine 1.36, glucose 112, procalcitonin 0.43. Early this morning sodium 145 , potassium 3.8, chloride 114, bicarb 23, BUN 47, creatinine 1.37, glucose level was 68. His highest creatinine when he came into emergency room on February 02, 2018, was 1.47 and lowest creatinine was 0.92 on February 07, 2018. Hospital Course: This is an 82-year-old male patient, came into emergency room with abdominal pain, and please see dictated H and P for more information. After the patient was evaluated in the ER, he was admitted to the hospital under hospitalist service while I was out of town. The patient was diag nosed as having obstructing colon cancer and Dr. Vang from General Surgery saw him and performed r ight hemicolectomy. Pathology report came back invasive moderately differentiated colonic adenocarci noma with 02/23 positive lymph node. Postoperatively, the patient was kept in ICU. Subsequently, he was moved to regular room. He has been on IV antibiotic Levaquin and metronidazole since the beginni ng and I took over his care as of this morning. I did talk to Dr. Vang while I was out of town to discuss the patient's condition and updates. His white count on February 10, 2018, was 16.5, then y day it went up to 19.4 and today 23.5. So this morning after I saw him, I stopped his Levaquin and metronidazole and started him on IV Zosyn. Sometime this morning after I saw him, nurse pooja mays and informed me that the patient's condition had changed and he became unresponsive. At that time, his sugar was low and orange juice was given and I also ordered IV fluid bolus. The patient also go t IV D50 x2 doses and this actually helped to correct his hypoglycemia problem. His blood pressure c ontinued to remain low and we continued to give him IV fluid boluses multiple times. Subsequently, raymond cortez was moved from the floor to ICU and I came back to ICU to evaluate him and when I examined him, I d etected that his right arm was paralyzed, left upper extremity he was moving spontaneously on his own and trying to touch his nose and face, but he was not moving right upper extremity at all. There wa s minimum withdrawal type of movement of right upper extremity with painful stimuli, otherwise no mov ement at all of right upper extremity. He was keeping his left eye rotated to the left side. The pa tiechrissy was not communicating, not answering any questions. Not in any distress and this was significa ntly different finding compared to did already this morning when I saw him. I was concerned about ac [place] stroke. The patient was taking warfarin on outpatient basis for his atrial fibrillation. Warfar in was discontinued prior to his surgery and after the surgery, he was started on Lovenox, and later on Lovenox was changed to Eliquis 5 mg twice a day and his last dose of Eliquis was 9 p.m. yesterday. After I saw him, Neurology consultation was requested from Dr. Lomax and he also evaluated the pat iechrissy, and he also had the same concern about acute stroke. We did send the patient down for CAT scan of the brain and Dr. Lomax also wanted to have a CT angiogram of the head. Dr. Dominique wanted r epeat CAT scan of abdomen, which was done today and it showed a persistence of ileus, but better than before. No other acute findings on CAT scan of abdomen. CAT scan of the head revealed subtle dimin ished density seen in left insular cortex and left temporal lobe raising suspicion for left-sided MCA territory acute nonhemorrhagic infarct. CT angiogram of the head revealed moderately diminished lef t intracranial internal carotid artery blood flow with finding supporting acute ischemia involving le ft middle cerebral artery territory. All these details were discussed with Dr. Lomax and Dr. Etienne well informed me that the patient is not a candidate for any kind of thrombolytic therapy considering his major surgery done recently and his recommendation was to transfer him to [place] for higher [facility] of care where the patient should be evaluated to see if any kind of vascular intervention can be p erformed to help improve his recovery and prognosis and to minimize damage from this stroke. We cont inued to give IV fluid boluses in the ICU. I ordered total of another 1000 cc of bolus in ICU. He ricardo blakely had received 1000 cc of IV fluid bolus on the floor before we brought him to ICU. We also sta rted him on Levophed drip in ICU and the nurse was instructed to try to maintain systolic blood press ure around 130 to 140 range, possibly around 140. I did communicate with Dr. Lomax regarding this parameter on the blood pressure and he was agreeable with this instruction. I talked to patient's w karely on the phone and discussed all the sudden change in patient's condition and our recommendation to transfer him to [place] and she wanted me to communicate with her nephew and I discussed with him as well when he arrived to ICU and family was agreeable to get him to [place]. So after all the arrang ements completed, the patient was transferred via [facility] to the [facility] in [facility]. Echocardiogram from today shows ejection fraction 70%. No other acute findings. Final Diagnoses: 1.Adenocarcinoma, ascending colon. 2.Postoperative ileus. 3.Acute left middle cerebral artery distribution stroke. 4.Chronic atrial fibrillation. 5.Volume depletion. 6.Anemia. 7.Wnt-dsoeyfy-ikurzqlfx diabetes mellitus. 8.Hypertension. 9.Hyperlipidemia. TOLU/MODL Voice ID: [id number] Report ID: [id number]
== END 2018-02-12 15:35 | disposition short-term general hospital (02) | DRG 329 ==
LOC: ER 15:49 → ERHOLD 20:35 → 2ND 22:03 → 4TH 02-03 16:31 → 3RD-ICU 02-05 15:15 → 4TH 02-07 04:46 → 3RD-ICU 02-12 09:51
PROVIDERS: ADMIT Internal Medicine; ATTEND Internal Medicine
PROC: 0DT80ZZ Resection of Small Intestine, Open Approach (ICD-10-PCS; 2018-02-05)
PROC: 0DTF0ZZ Resection of Right Large Intestine, Open Approach (ICD-10-PCS; principal; 2018-02-05 09:30)
DX: C18.2 Malignant neoplasm of ascending colon (principal); I63.9 Cerebral infarction, unspecified; K91.89 Other postprocedural complications and disorders of digestive system; K56.7 Ileus, unspecified; K56.691 Other complete intestinal obstruction; C77.2 Secondary and unspecified malignant neoplasm of intra-abdominal lymph nodes; E87.0 Hyperosmolality and hypernatremia; R47.01 Aphasia; G81.91 Hemiplegia, unspecified affecting right dominant side; Y83.8 Other surgical procedures as the cause of abnormal reaction of the patient, or of later complication, without mention of misadventure at the time of the procedure; Y92.230 Patient room in hospital as the place of occurrence of the external cause; D64.9 Anemia, unspecified; E11.9 Type 2 diabetes mellitus without complications; I10 Essential (primary) hypertension; J44.9 Chronic obstructive pulmonary disease, unspecified; I48.2 Chronic atrial fibrillation; Z79.01 Long term (current) use of anticoagulants; Z79.84 Long term (current) use of oral hypoglycemic drugs; E78.2 Mixed hyperlipidemia; E86.9 Volume depletion, unspecified; E83.39 Other disorders of phosphorus metabolism; R09.02 Hypoxemia; R29.810 Facial weakness
CPT/HCPCS: 36415; 70450; 70496; 71045; 74018; 74022; 74176; 74177; 76700; 80048; 80053; 80076; 80162; 81001; 81003; 81015; 82274; 82378; 82805; 82962; 83605; 83690; 83735; 84100; 84145; 85014; 85018; 85025; 85610; 86850; 86900; 86901; 87040; 87086; 87088; 87493; 88309; 93005; 93306; 93926; 94760; 96361; 96365; 96366; 96372; 96375; 97110; 97112; 97116; 97163; 97164; 97530; 99285; C9113; J0744; J1170; J1650; J2175; J2270; J2310; J2370; J2405; J2543; J2704; J2710; J2765; J3010; J3411; J3430; J3475; J7030; J7060; Q9967

== ENCOUNTER 2018-02-17 15:57 | Inpatient (IN) | payer OTHER ==
--- OUTSIDE RECORDS SUMMARY | 2018-02-17 20:38 | XMS REPORT | Clinical Summary ---
:1935 Author Organization [facility] Address [address] [address] [address] Care Team Providers Name Role Phone Unavailable Primary Care Provider Unavailable Allergies No Known Allergies Medications Medication Sig Dispensed Refills Start Date End Date Status digoxin (LANOXIN) Take 250 mcg 0 02/17/2018 Discontinued 0.25 MG tablet by mouth daily. ferrous sulfate 325 Take 325 mg 0 02/17/2018 Discontinued (65 FE) MG tablet by mouth daily with breakfast. glimepiride (AMARYL) Take 1 mg by 0 02/17/2018 Discontinued 1 MG tablet mouth every morning before breakfast. ramipril (ALTACE) Take 2.5 mg 0 02/17/2018 Discontinued 2.5 MG capsule by mouth daily. simvastatin (ZOCOR) Take 40 mg by 0 02/17/2018 Discontinued 40 MG tablet mouth nightly. spironolactone Take 25 mg by 0 02/17/2018 Discontinued (ALDACTONE) 25 MG mouth daily. tablet warfarin (COUMADIN) Take 2 mg by 0 02/17/2018 Discontinued 2 MG tablet mouth daily. warfarin (COUMADIN) Take 1 mg by 0 02/17/2018 Discontinued 1 MG tablet mouth daily. 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 02/12/2018 Stroke (cerebrum) 02/12/2018 Encounters Date Type Specialty Care Team Description 02/13/2018 Orders Only General Internal Medicine 02/12/2018 - Hospital Encounter General Internal Jeb Dunlap Aspiration pneumonia of left lower lobe, unspecified aspiration pneumonia type (HCC); 02/17/2018 Abraham Rebollar MD Acute diastolic CHF (congestive heart failure), NYHA class 4 ([facility]); Andreas, Acute pulmonary edema (HCC); MD Anyi Hypoglycemia; Changela, Acute ischemic stroke ([facility]) Alanna Mckee MD after 02/16/2017 Social History Tobacco Use Types Packs/Day Years Used Date Former Smoker Alcohol Use Drinks/Week oz/Week Comments No Alcohol Habits Answer Date Recorded How often do you have a drink containing alcohol? Never 02/12/2018 How many drinks containing alcohol do you have on a typical Not asked day when you are drinking? How often do you have six or more drinks on one occasion? Not asked Sex Assigned at Date Recorded Not on file Job Start Date Occupation Industry Not on file Not on file Not on file Travel History Travel Start Travel End No recent travel history available. Last Filed Vital Signs Vital Sign Reading Time Taken Blood Pressure 109/65 02/17/2018 2:10 PM [employer] Pulse 77 02/17/2018 2:10 PM [employer] Temperature 36.9 C (98.4 F) 02/17/2018 2:10 PM [employer] Respiratory Rate 19 02/17/2018 2:10 PM [employer] Oxygen Saturation 98% 02/17/2018 2:10 PM [employer] Inhaled Oxygen Concentration - - Weight 102.8 kg (226 lb 10.1 oz) 02/12/2018 5:00 PM [employer] Height 180.3 cm (5' 11") 02/12/2018 5:00 PM [employer] Body Mass Index 31.61 02/12/2018 5:00 PM [employer] Plan of Treatment Not on file Procedures Procedure Name Priority Date/Time Associated Comments Diagnosis POCT-GLUCOSE METER Routine 02/15/2018 12:47 Results for this PM [employer] procedure are in the results section. POCT-GLUCOSE METER Routine 02/15/2018 6:21 Results for this AM [employer] procedure are in the results section. CBC W/PLT COUNT & AUTO Routine 02/15/2018 2:56 Results for this DIFFERENTIAL AM [employer] procedure are in the results section. ALBUMIN Routine 02/15/2018 2:56 Results for this AM [employer] procedure are in the results section. CORTISOL Routine 02/15/2018 2:56 Results for this AM [employer] procedure are in the results section. CBC W/PLT COUNT & AUTO Routine 02/15/2018 2:56 Results for this DIFFERENTIAL AM [employer] procedure are in the results section. PHOSPHORUS Routine 02/15/2018 2:56 Results for this AM [employer] procedure are in the results section. MAGNESIUM Routine 02/15/2018 2:56 Results for this AM [employer] procedure are in the results section. BASIC METABOLIC PANEL Routine 02/15/2018 2:56 Results for this (7) AM [employer] procedure are in the results section. VANCOMYCIN LEVEL, Timed 02/15/2018 2:56 Results for this TROUGH AM [employer] procedure are in the results section. POCT-GLUCOSE METER Routine 02/15/2018 1:12 Results for this AM [employer] procedure are in the results section. POCT-GLUCOSE METER Routine 02/14/2018 6:08 Results for this PM [employer] procedure are in the results section. POCT-GLUCOSE METER Routine 02/14/2018 12:09 Results for this PM [employer] procedure are in the results section. XR CHEST 1 VIEW STAT 02/14/2018 9:10 Results for this PORTABLE/BEDSIDE AM [employer] procedure are in the results section. POCT-GLUCOSE METER Routine 02/14/2018 6:43 Results for this AM [employer] procedure are in the results section. (CELLAVISION MANUAL Routine 02/14/2018 4:20 Results for this DIFF) AM [employer] procedure are in the results section. CBC W/PLT COUNT & AUTO Routine 02/14/2018 4:20 Results for this DIFFERENTIAL AM [employer] procedure are in the results section. CBC W/PLT COUNT & AUTO Routine 02/14/2018 4:20 Results for this DIFFERENTIAL AM [employer] procedure are in the results section. LACTIC ACID, VENOUS, Routine 02/14/2018 4:20 Results for this WHOLE BLOOD AM [employer] procedure are in the results section. PHOSPHORUS Routine 02/14/2018 4:20 Results for this AM [employer] procedure are in the results section. MAGNESIUM Routine 02/14/2018 4:20 Results for this AM [employer] procedure are in the results section. BASIC METABOLIC PANEL Routine 02/14/2018 4:20 Results for this (7) AM [employer] procedure are in the results section. POTASSIUM Routine 02/13/2018 7:56 Results for this PM [employer] procedure are in the results section. CT BRAIN WITHOUT IV Routine 02/13/2018 6:57 Results for this CONTRAST PORTABLE PM [employer] procedure are in the results section. POCT-GLUCOSE METER Routine 02/13/2018 6:17 Results for this PM [employer] procedure are in the results section. TRANSFUSION SERVICE 02/13/2018 6:02 REPORT - SCAN PM [employer] POCT-GLUCOSE METER Routine 02/13/2018 4:03 Results for this PM [employer] procedure are in the results section. ECHOCARDIOGRAM REPORT - 02/13/2018 3:50 SCAN PM [employer] TROPONIN I STAT 02/13/2018 3:16 Results for this PM [employer] procedure are in the results section. PHOSPHORUS STAT 02/13/2018 3:16 Results for this PM [employer] procedure are in the results section. MAGNESIUM STAT 02/13/2018 3:16 Results for this PM [employer] procedure are in the results section. COMPREHENSIVE METABOLIC Routine 02/13/2018 3:16 Results for this PANEL PM [employer] procedure are in the results section. CALCIUM, IONIZED STAT 02/13/2018 3:16 Results for this PM [employer] procedure are in the results section. XR ABDOMEN 1 VIEW Routine 02/13/2018 2:31 Results for this PM [employer] procedure are in the results section. POCT-GLUCOSE METER Routine 02/13/2018 2:07 Results for this PM [employer] procedure are in the results section. SPUTUM CULTURE + GRAM STAT 02/13/2018 12:41 Results for this STAIN PM [employer] procedure are in the results section. POCT-GLUCOSE METER Routine 02/13/2018 12:18 Results for this PM [employer] procedure are in the results section. 2D ECHO W/ DOPPLER STAT 02/13/2018 11:16 Results for this (CW/PW/COLOR) AM [employer] procedure are in the results section. POCT-GLUCOSE METER Routine 02/13/2018 10:16 Results for this AM [employer] procedure are in the results section. POCT-GLUCOSE METER Routine 02/13/2018 9:05 Results for this AM [employer] procedure are in the results section. BLOOD GAS, ARTERIAL STAT 02/13/2018 8:23 Results for this AM [employer] procedure are in the results section. POCT-GLUCOSE METER Routine 02/13/2018 8:07 Results for this AM [employer] procedure are in the results section. ALBUMIN Routine 02/13/2018 7:47 Results for this AM [employer] procedure are in the results section. PROCALCITONIN Routine 02/13/2018 7:47 Results for this AM [employer] procedure are in the results section. TROPONIN I STAT 02/13/2018 7:47 Results for this AM [employer] procedure are in the results section. POCT-GLUCOSE METER Routine 02/13/2018 6:44 Results for this AM [employer] procedure are in the results section. POCT-GLUCOSE METER Routine 02/13/2018 5:17 Results for this AM [employer] procedure are in the results section. POCT-GLUCOSE METER Routine 02/13/2018 4:19 Results for this AM [employer] procedure are in the results section. CBC W/PLT COUNT & AUTO Routine 02/13/2018 3:13 Results for this DIFFERENTIAL AM [employer] procedure are in the results section. CBC W/PLT COUNT & AUTO Routine 02/13/2018 3:13 Results for this DIFFERENTIAL AM [employer] procedure are in the results section. LACTIC ACID, VENOUS, Routine 02/13/2018 3:13 Results for this WHOLE BLOOD AM [employer] procedure are in the results section. PHOSPHORUS Routine 02/13/2018 3:13 Results for this AM [employer] procedure are in the results section. MAGNESIUM Routine 02/13/2018 3:13 Results for this AM [employer] procedure are in the results section. BASIC METABOLIC PANEL Routine 02/13/2018 3:13 Results for this (7) AM [employer] procedure are in the results section. LIPID PANEL Routine 02/13/2018 3:13 Results for this AM [employer] procedure are in the results section. POCT-GLUCOSE METER Routine 02/13/2018 2:55 Results for this AM [employer] procedure are in the results section. POCT-GLUCOSE METER Routine 02/13/2018 2:18 Results for this AM [employer] procedure are in the results section. B-TYPE NATRIURETIC STAT 02/13/2018 1:41 Results for this FACTOR (BNP) AM [employer] procedure are in the results section. POCT-GLUCOSE METER Routine 02/13/2018 1:16 Results for this AM [employer] procedure are in the results section. ECG 12-LEAD Routine 02/13/2018 12:55 AM [employer] Procedure Note - Interface, External Ris In - 02/13/2018 12:07 PM [employer] Ventricular Rate 91 BPM Atrial Rate 107 BPM QRS Duration 88 ms Q-T Interval 342 ms QTC Calculation(Bazett) 420 ms R [place] 64 degrees T [place] [address] & T wave abnormality, consider inferior ischemia or digitalis effect Abnormal ECG No previous ECGs available ECG 12-LEAD STAT 02/13/2018 12:55 AM [employer] RESPIRATORY PANEL [facility] Add-On 02/13/2018 12:20 AM [employer] RAPID INFLUENZA A&B SCREEN STAT 02/13/2018 12:20 AM [employer] TROPONIN I Routine 02/12/2018 11:58 PM [employer] LACTIC ACID, VENOUS, WHOLE STAT 02/12/2018 11:58 PM [employer] Results for this BLOOD procedure are in the results section. POCT-GLUCOSE METER Routine 02/12/2018 11:14 PM [employer] POCT-GLUCOSE METER Routine 02/12/2018 10:05 PM [employer] ABORH, MANUAL Routine 02/12/2018 9:41 PM [employer] VANCOMYCIN LEVEL, RANDOM Routine 02/12/2018 9:41 PM [employer] PROCALCITONIN STAT 02/12/2018 9:41 PM [employer] LACTIC ACID, VENOUS, WHOLE STAT 02/12/2018 9:41 PM [employer] Results for this BLOOD procedure are in the results section. POCT-GLUCOSE METER Routine 02/12/2018 9:14 PM [employer] XR CHEST 1 VIEW STAT 02/12/2018 9:00 PM [employer] Results for this PORTABLE/BEDSIDE procedure are in the results section. POCT-GLUCOSE METER Routine 02/12/2018 7:19 PM [employer] BLOOD CULTURE Routine 02/12/2018 6:[address] [employer] [address] CEREBRAL PERFUSION Routine 02/12/2018 5:50 PM [employer] Results for this ANALYSIS procedure are in the results section. CT/CTA BRAIN STAT 02/12/2018 5:50 PM [employer] LACTIC ACID, VENOUS, WHOLE Routine 02/12/2018 5:25 PM [employer] Results for this BLOOD procedure are in the results section. BLOOD CULTURE Routine 02/12/2018 5:22 PM [employer] TYPE AND SCREEN, AUTOMATED STAT 02/12/2018 5:21 PM [employer] URINE CULTURE Routine 02/12/2018 5:20 PM [employer] URINALYSIS W/ MICROSCOPIC Routine 02/12/2018 5:19 PM [employer] (CELLAVISION MANUAL DIFF) Routine 02/12/2018 5:16 PM [employer] CBC W/PLT COUNT & AUTO Routine 02/12/2018 5:16 PM [employer] Results for this DIFFERENTIAL procedure are in the results section. APTT Routine 02/12/2018 5:16 PM [employer] PROTHROMBIN TIME/INR Routine 02/12/2018 5:16 PM [employer] HEPATIC FUNCTION PANEL Routine 02/12/2018 5:16 PM [employer] RPR Routine 02/12/2018 5:16 PM [employer] HEMOGLOBIN A1C AP Routine 02/12/2018 5:16 PM [employer] CBC W/PLT COUNT & AUTO Routine 02/12/2018 5:16 PM [employer] Results for this DIFFERENTIAL procedure are in the results section. BASIC METABOLIC PANEL (7) Routine 02/12/2018 5:16 PM [employer] TSH/FREE T4 IF INDICATED Routine 02/12/2018 5:16 PM [employer] after 02/16/2017 Results POC-Glucose meter (02/15/2018 12:47 PM [employer])Only the most recent of23 resultswithin the time period is included. POC-Glucose Meter 232 (H)Comment: TESTED AT 70 - 110 mg/dL [address] [address] Specimen Blood Performing Organization Address City/State/Zipcode Phone Number [address] [address] CENTER Cortisol (02/15/2018 2:56 AM [employer]) Cortisol, Total 9.2 3.7 - 19.4 ug/dL [facility] Specimen Blood Performing Organization Address City/[facility]/Zipcode Phone Number [address] [address] [phone] CENTER CBC with platelet count + automated diff (02/15/2018 2:56 AM [employer])Only the most recent of4 resultswithin the time period is included. WBC 20.4 (H) 3.5 - 10.5 K/L [facility] [place] RBC 3.16 (L) 4.63 - 6.08 M/L [facility] Hemoglobin 9.1 (L) 13.7 - 17.5 GM/DL [facility] Hematocrit 29.3 (L) 40.1 - 51.0 % [facility] MCV 92.7 (H) 79.0 - 92.2 fL [facility] MCH 28.8 25.7 - 32.2 pg [facility] MCHC 31.1 (L) 32.3 - 36.5 GM/DL [facility] RDW 14.7 (H) 11.6 - 14.4 % [facility] [place] Platelets 235 150 - 450 K/CU MM [facility] MPV 11.4 9.4 - 12.4 fL [facility] nRBC 0 0 - 0 /100 WBC [facility] % Neutros 79 % [facility] [place] % Lymphs 5 % [facility] [place] % Monos 13 % [facility] % Eos 2 % [facility] [place] % Baso 0 % [facility] # Neutros 16.22 (H) 1.78 - 5.38 K/L [facility] [place] # Lymphs 1.06 (L) 1.32 - 3.57 K/L [facility] [place] # Monos 2.55 (H) 0.30 - 0.82 K/L [facility] # Eos 0.35 0.04 - 0.54 K/L [facility] [place] # Baso 0.04 0.01 - 0.08 K/L [facility] Immature 1 0 - 1 % [facility] Specimen Blood Performing Organization Address [facility] Phone Number [address] [address] [phone] CENTER Phosphorus (02/15/2018 2:56 AM [employer])Only the most recent of4 resultswithin the time period is included. Phosphorus 1.4 (LL) 2.3 - 4.7 mg/dL [facility] Specimen Blood Performing Organization Address [facility] Phone Number [address] [address] [phone] CENTER Magnesium (02/15/2018 2:56 AM [employer])Only the most recent of4 resultswithin the time period is included. Magnesium 1.6 1.6 - 2.6 mg/dL [facility] Specimen Blood Performing Organization Address [facility] Phone Number [address] [address] CENTER Albumin (02/15/2018 2:56 AM [employer])Only the most recent of2 resultswithin the time period is included. Albumin 2.3 (L) 3.5 - 5.0 g/dL [facility] Specimen Blood Performing Organization Address [facility] Phone Number [address] [address] [phone] [place] Vancomycin level, trough (02/15/2018 2:56 AM [employer]) Vancomycin Tr 21.6 (H) 10.0 - 20.0 ug/mL [facility] Specimen Blood Narrative Performed At Draw 30 min prior to scheduled dose, HOLD if [facility] level > 20 mcg/mL, inform Performing Organization Address [facility] Phone Number [address] [address] [phone] CENTER Basic metabolic panel (02/15/2018 2:56 AM [employer])Only the most recent of4 resultswithin the time period is included. Sodium 143 136 - 145 meq/L [facility] Potassium 3.5 3.5 - 5.1 meq/L [facility] Chloride 115 (H) 98 - 107 meq/L [facility] CO2 26 22 - 29 meq/L [facility] BUN 14 7 - 21 mg/dL [facility] Creatinine 0.75 0.57 - 1.25 mg/dL [facility] Glucose 176 (H) 70 - 105 mg/dL [facility] Calcium 7.9 (L) 8.4 - 10.2 mg/dL [facility] EGFR 99Comment: ESTIMATED GFR IS mL/min/1.73 sq m [facility] NOT ACCURATE CREATININE [facility] CLEARANCE IN PREDICTING GLOMERULAR FILTRATION RATE. ESTIMATED GFR IS NOT APPLICABLE FOR DIALYSIS PATIENTS. Specimen Blood Performing Organization Address City/State/Zipcode Phone Number [facility] [address] [place] [address] CENTER XR chest 1 view portable / bedside (02/14/2018 9:10 AM [employer])Only the most recent of2 resultswithin the time period is included. Narrative Performed At FINAL REPORT [facility] RAD, CHEST, 1 VIEW, NON DEPT INDICATION: concern for aspiration COMPARISON: February 12, 2018 FINDINGS: Portable frontal view of the chest. IMPRESSION: Support Lines: A feeding tube is present, projecting beyond the imaged volume. A right PICC is stable. Lungs and pleura: Airspace disease is unchanged from prior without new consolidation. Stable left effusion. No pneumothorax. Heart and mediastinum: Stable contours. Additional findings: None. Signed: JR Dickinson Robert MD Report Verified Date/Time:02/14/2018 09:16:25 Reading Location: [facility] Radiology Reading Room Procedure Note Interface, External Ris In - 02/14/2018 9:18 AM [employer] FINAL REPORT RAD, CHEST, 1 VIEW, NON DEPT INDICATION: concern for aspiration COMPARISON: February 12, 2018 FINDINGS: Portable frontal view of the chest. IMPRESSION: Support Lines: A feeding tube is present, projecting beyond the imaged volume. A right PICC is stable. Lungs and pleura: Airspace disease is unchanged from prior without new consolidation. Stable left effusion. No pneumothorax. Heart and mediastinum: Stable contours. Additional findings: None. Signed: JR Dickinson Robert MD Report Verified Date/Time: 02/14/2018 09:16:25 Reading Location: [facility] Radiology Reading Room Performing Organization Address City/State/Zipcode Phone Number GE RIS Manual Differential (02/14/2018 4:20 AM [employer])Only the most recent of2 resultswithin the time period is included. % Neutros 90 % [facility] % Lymphs 1 % [facility] % Monos 6 % [facility] % Eos 2 % [facility] % Bands 1 0 - 10 % [facility] # Neutros 24.66 (H) 1.78 - 5.38 K/ul [facility] # Lymphs 0.27 (L) 1.32 - 3.57 K/ul [facility] # Monos 1.64 (H) 0.30 - 0.82 K/uL [facility] # Eos 0.55 (H) 0.04 - 0.54 K/uL [facility] # Bands 0.27 0.00 - 0.80 K/uL [facility] Total Counted 100 [facility] WBC Morphology Normal [facility] Platelet Morphology Normal [facility] Poikilocytes 1+ few [facility] Artifact Present [facility] Platelet Conc Adequate [facility] Specimen Blood Narrative Performed At Received comment: [facility] User comments: Slide comments: Performing Organization Address City/[facility] Phone Number [facility] [address] [place] [phone] [place] Lactic acid, venous, whole blood Daily (02/14/2018 4:20 AM [employer])Only the most recent of5 resultswithin the time period is included. Lactate, Venous 0.8 0.5 - 2.2 mmol/L [facility] Specimen Blood Performing Organization Address [facility]/Zipcode Phone Number [address] [address] [phone] [place] Potassium (02/13/2018 7:56 PM [employer]) Potassium 3.2 (L) 3.5 - 5.1 meq/L [facility] Specimen Blood Performing Organization Address City/[facility] Phone Number [phone] [place] CT brain without IV contrast portable (02/13/2018 6:57 PM [employer]) Narrative Performed At FINAL REPORT [facility] CT head without contrast 02/13/2018 6:53 PM CLINICAL HISTORY: tpa TECHNIQUE: Contiguous axial images through the head without contrast were obtained utilizing the portable CT unit. This examination was performed according to our departmental dose optimization program, which includes automated exposure control, adjustment of the mA and/or kV according to patient size, and/or use of iterated reconstruction technique. COMPARISON: 02/12/2018 FINDINGS: There is an evolving large volume left middle cerebral artery distribution infarct without hemorrhagic transformation. Mass effect results in partial effacement of the left lateral ventricle. There is no ventricular entrapment or parenchymal herniation. There is no hemorrhage, mass, hydrocephalus, extra-axial collection, or midline shift. There is mild microvascular ischemia in the supratentorial white matter. There is atherosclerotic calcification of the intracranial arterial vasculature. There is generalized parenchymal volume loss. There is no concerning paranasal sinus mucosal disease or tympanomastoid cavity opacification. The skull is intact. IMPRESSION: Evolving left middle cerebral artery distribution infarction without hemorrhagic transformation or current concerning mass effect. Signed: Jamie Holt MD Report Verified Date/Time:02/13/2018 18:55:09 Reading Location: [facility] Radiology Reading Room Procedure Note Interface, External Ris In - 02/13/2018 6:57 PM CHILD WELFARE CASEWORKER FINAL REPORT CT head without contrast 02/13/2018 6:53 PM CLINICAL HISTORY: tpa TECHNIQUE: Contiguous axial images through the head without contrast were obtained utilizing the portable CT unit. This examination was performed according to our departmental dose optimization program, which includes automated exposure control, adjustment of the mA and/or kV according to patient size, and/or use of iterated reconstruction technique. COMPARISON: 02/12/2018 FINDINGS: There is an evolving large volume left middle cerebral artery distribution infarct without hemorrhagic transformation. Mass effect results in partial effacement of the left lateral ventricle. There is no ventricular entrapment or parenchymal herniation. There is no hemorrhage, mass, hydrocephalus, extra-axial collection, or midline shift. There is mild microvascular ischemia in the supratentorial white matter. There is atherosclerotic calcification of the intracranial arterial vasculature. There is generalized parenchymal volume loss. There is no concerning paranasal sinus mucosal disease or tympanomastoid cavity opacification. The skull is intact. IMPRESSION: Evolving left middle cerebral artery distribution infarction without hemorrhagic transformation or current concerning mass effect. Signed: Jamie Holt MD Report Verified Date/Time: 02/13/2018 18:55:09 Reading Location: [facility] Radiology Reading Room Performing Organization Address City/State/Zipcode Phone Number [facility] TRANSFUSION SERVICE REPORT - SCAN (02/13/2018 6:02 PM CHILD WELFARE CASEWORKER) Narrative Performed At ECHOCARDIOGRAM REPORT - SCAN (02/13/2018 3:50 PM CHILD WELFARE CASEWORKER) Narrative Performed At Calcium, Ionized (02/13/2018 3:16 PM CHILD WELFARE CASEWORKER) Calcium, Ion 1.06 (L) 1.12 - 1.27 mmol/L [facility] pH, Blood 7.47 [facility] Specimen Blood Performing Organization Address [facility] Phone Number [facility] [address] [place], [place] [phone] [place] Troponin I (02/13/2018 3:16 PM CHILD WELFARE CASEWORKER)Only the most recent of3 resultswithin the time period is included. Troponin I 0.03 0.00 - 0.03 ng/mL [facility] Specimen Blood Narrative Performed At Troponin I (TnI) levels must be interpreted [facility] in the context of the presenting symptoms and the clinical findings. Elevated TnI levels indicate myocardial damage, but are not specific for ischemic heart disease. Elevated TnI levels are seen in patients with other cardiac conditions (including myocarditis and congestive heart failure), and slight TnI elevations occur in patients with other conditions, including sepsis, renal failure, acidosis, acute neurological disease, and persistent tachyarrhythmia. Performing Organization Address [facility] Phone Number [facility] [address] [place] [address] [place] Comprehensive metabolic panel (02/13/2018 3:16 PM CHILD WELFARE CASEWORKER) Protein, Total 5.0 (L) 6.0 - 8.3 gm/dL [facility] Albumin 2.5 (L) 3.5 - 5.0 g/dL [facility] Alkaline Phosphatase 71 40 - 150 U/L [facility] Total Bilirubin 0.9 0.2 - 1.2 mg/dL [facility] Sodium 141 136 - 145 meq/L [facility] Potassium 3.3 (L) 3.5 - 5.1 meq/L [facility] Chloride 112 (H) 98 - 107 meq/L [facility] CO2 21 (L) 22 - 29 meq/L [facility] BUN 21 7 - 21 mg/dL [facility] Creatinine 0.97 0.57 - 1.25 mg/dL [facility] Glucose 135 (H) 70 - 105 mg/dL [facility] Calcium 7.6 (L) 8.4 - 10.2 mg/dL [facility] AST 21 5 - 34 U/L [facility] ALT 8 6 - 55 U/L [facility] EGFR 74Comment: ESTIMATED GFR mL/min/1.73 sq m [facility] IS NOT ACCURATE [facility] CREATININE CLEARANCE IN PREDICTING GLOMERULAR FILTRATION RATE. ESTIMATED GFR IS NOT APPLICABLE FOR DIALYSIS PATIENTS. Specimen Blood Performing Organization Address City/State/Zipcode Phone Number [facility] [address] [place] [address] [phone] CENTER XR abdomen / KUB 1 view (02/13/2018 2:31 PM CHILD WELFARE CASEWORKER) Narrative Performed At FINAL REPORT GE RIS RAD, ABDOMEN/KUB, 1 VIEW AP COMPARISON: None INDICATION: feeding tube IMPRESSION: A feeding tube has been placed. The distal tip projects over the antrum/pylorus. The visible bowel gas pattern is unremarkable. Signed: JR Dickinson Robert MD Report Verified Date/Time:02/13/2018 14:58:51 Reading Location: [facility] B1 C013W Consult Reading Room Procedure Note Interface, External Ris In - 02/13/2018 3:00 PM CHILD WELFARE CASEWORKER FINAL REPORT RAD, ABDOMEN/KUB, 1 VIEW AP COMPARISON: None INDICATION: feeding tube IMPRESSION: A feeding tube has been placed. The distal tip projects over the antrum/pylorus. The visible bowel gas pattern is unremarkable. Signed: JR Dickinson Robert MD Report Verified Date/Time: 02/13/2018 14:58:51 Reading Location: [facility] B1 C013W Consult Reading Room Performing Organization Address City/State/Zipcode Phone Number GE RIS Sputum Culture + Gram Stain (02/13/2018 12:41 PM CHILD WELFARE CASEWORKER) Result 3+ Normal respiratory ruperto [facility] Gram Stain Result 3+ WBCs [facility] Gram Stain Result 0-5 epithelial cells [facility] Gram Stain Result <1+ gram positive cocci in [facility] Specimen Aspirate - Suctioned Performing Organization Address City/State/Zipcode Phone Number [facility] [address] [place] [address] CENTER 2D Echo W/Doppler(CW/PW/Color) (02/13/2018 11:16 AM CHILD WELFARE CASEWORKER) Ejection Fraction [facility] Narrative Performed At Transthoracic Echocardiography Report (TTE) [facility] Demographics Patient NameLOYD FLORES Date of Study02/13/2018 Male Visit [id number] Unknown Room [id number] Number Date of 4Referring Chantal Boo Age 82 year(s)SonographerMoun ricardo Rojas RDCS Sand Shoveler Rashid Richardson Interpreting Adelso Dior Procedure Type of Study TTE procedure:2DECHO W DOPPLER(CW/PW/COLOR) (STAT) Indications:Hypotension or hemodynamic instability. Clinical History ANEMIA;AFIB;COPD;DM;HLD;HTN. HGB 9.8 HCT 30.9 % Contrast Medium: Definity. Height: 71 inches Weight: 102.51 kg (226 lbs) BSA: 2.22 m^2 BMI: 31.52 kg/m^2 HR: 74 bpm BP: 103/54 mmHg Summary IV saline contrast injection was negative for a PFO (patent foramen ovale) at rest and post Valsalva . LV endocardium is adequately visualized with IV ultrasound enhancing agent. Normal left ventricular chamber size. Normal wall thickness. Normal overall left ventricular systolic function. No apparent segmental wall motion abnormalities. Estimated LVEF by qualitative assessment is normal (>60%) . Otherwise, essentially normal exam. Signature Findings Left Ventricle LV endocardium is adequately visualized with IV ul trasound enhancing agent. Normal left ventricular ch natan size. Normal wall thickness. Normal overall le ft ventricular systolic function. No apparent se gmental wall motion abnormalities. Estimated LVEF by qualitative assessment is normal (>60%) . Left AtriumLA size is normal . Right VentricleNormal right ventricle structure and function. Right Atrium Normal right atrium. Atrial SeptumIV saline contrast injection was negative for a PFO (p atent foramen ovale) at rest and post Valsalva . Aortic Valve Mild AoV cusp thickening. Mi ld AoV cusp calcification. Th ere is evidence of aortic valve sclerosis without si gnificant stenosis. Mitral Valve Mild MV leaflet thickening. Mild mitral annular ca lcification. Trace mitral regurgitation. Tricuspid ValveMild tricuspid regurgitation. Es timated peak systolic PA pressure is 25-30 mmHg . Pulmonic Valve Normal PV structure and function by limited views an d Doppler. AortaAortic root size (SInus of Valsalva diameter) is no rmal . PericardiumNo evidence of pericardial effusion. IVC/SVC/PA/PV/PleuralThe estimated RA pressure by IVC dynamics 5-10mmHg . Chambers/Structures Left Atrium LA Dimension: 4.17 cmLA Area: 22.47 cm^2 LA Volume: 60.03 ml LA Vol. Index: 27 ml/m^2 Left Ventricle LVIDd: 4.25 cm LV Septum Diastolic: 1.03 cm LV PW Diastolic: 0.99 cm LVEDV Saini's:94.05 ml LVESV Saini's:33.7 ml LVEF Saini's: 64.2 %LVEDV I: 42 ml/m^2 LVESVI: 15 ml/m^2 LVOT Diameter: 2.1 cm Aorta Ao Root S of Trisha.: 3.11 cm Doppler/Quantitative Measurements Aortic Valve Peak Velocity: 2.2 m/s Mean Velocity: 1.3 m/s Peak Gradient: 19.43 mmHgMean Gradient: 8.52 mmHg AV Area (continuity): 1.96 cm^2 AV VTI: 33.49 cm AV DVI: 0.56 LVOT Peak Velocity: 1.12 m/s Peak Gradient: 5.01 mmHg Mean Velocity: 0.67 m/s Mean Gradient: 2.25 mmHg LVOT Diameter: 2.1 cm LVOT VTI: 18.92 cm LVOT Area: 3.46 cm^2LVOT SV:65.5 ml LVOT CO: 4.85 l/min LVOT CI: 2.18 l/min/m^2 Procedure Note Interface, External Ris In - 02/13/2018 3:20 PM CHILD WELFARE CASEWORKER Transthoracic Echocardiography Report (TTE) Demographics Patient Name LOYD FLORES Date of Study 02/13/2018 Gender Male Visit Number [id number] Race Unknown Room Number 7511 Number Date of 1935 Referring Physician Miri Boo Age 82 year(s) Survey Supervisor Radha Rojas RDCS Sand Shoveler Rashid Richardson Interpreting Laron Daley Physician Procedure Type of Study TTE procedure:2DECHO W DOPPLER(CW/PW/COLOR) (STAT) Indications:Hypotension or hemodynamic instability. Clinical History ANEMIA;AFIB;COPD;DM;HLD;HTN. HGB 9.8 HCT 30.9 % Contrast Medium: Definity. Height: 71 inches Weight: 102.51 kg (226 lbs) BSA: 2.22 m^2 BMI: 31.52 kg/m^2 HR: 74 bpm BP: 103/54 mmHg Summary IV saline contrast injection was negative for a PFO (patent foramen ovale) at rest and post Valsalva . LV endocardium is adequately visualized with IV ultrasound enhancing agent. Normal left ventricular chamber size. Normal wall thickness. Normal overall left ventricular systolic function. No apparent segmental wall motion abnormalities. Estimated LVEF by qualitative assessment is normal (>60%) . Otherwise, essentially normal exam. Signature Findings Left Ventricle LV endocardium is adequately visualized with IV ultrasound enhancing agent. Normal left ventricular chamber size. Normal wall thickness. Normal overall left ventricular systolic function. No apparent segmental wall motion abnormalities. Estimated LVEF by qualitative assessment is normal (>60%) . Left Atrium LA size is normal . Right Ventricle Normal right ventricle structure and function. Right Atrium Normal right atrium. Atrial Septum IV saline contrast injection was negative for a PFO (patent foramen ovale) at rest and post Valsalva . Aortic Valve Mild AoV cusp thickening. Mild AoV cusp calcification. There is evidence of aortic valve sclerosis without significant stenosis. Mitral Valve Mild MV leaflet thickening. Mild mitral annular calcification. Trace mitral regurgitation. Tricuspid Valve Mild tricuspid regurgitation. Estimated peak systolic PA pressure is 25-30 mmHg . Pulmonic Valve Normal PV structure and function by limited views and Doppler. Aorta Aortic root size (SInus of Valsalva diameter) is normal . Pericardium No evidence of pericardial effusion. IVC/SVC/PA/PV/Pleural The estimated RA pressure by IVC dynamics 5-10mmHg . Chambers/Structures Left Atrium LA Dimension: 4.17 cm LA Area: 22.47 cm^2 LA Volume: 60.03 ml LA Vol. Index: 27 ml/m^2 Left Ventricle LVIDd: 4.25 cm LV Septum Diastolic: 1.03 cm LV PW Diastolic: 0.99 cm LVEDV Saini's:94.05 ml LVESV Saini's:33.7 ml LVEF Saini's: 64.2 % LVEDVI: 42 ml/m^2 LVESVI: 15 ml/m^2 LVOT Diameter: 2.1 cm Aorta Ao Root S of Trisha.: 3.11 cm Doppler/Quantitative Measurements Aortic Valve Peak Velocity: 2.2 m/s Mean Velocity: 1.3 m/s Peak Gradient: 19.43 mmHg Mean Gradient: 8.52 mmHg AV Area (continuity): 1.96 cm^2 AV VTI: 33.49 cm AV DVI: 0.56 LVOT Peak Velocity: 1.12 m/s Peak Gradient: 5.01 mmHg Mean Velocity: 0.67 m/s Mean Gradient: 2.25 mmHg LVOT Diameter: 2.1 cm LVOT VTI: 18.92 cm LVOT Area: 3.46 cm^2 LVOT SV:65.5 ml LVOT CO: 4.85 l/min LVOT CI: 2.18 l/min/m^2 Performing Organization Address [facility] Phone Number [facility] Blood gas, arterial (02/13/2018 8:23 AM CHILD WELFARE CASEWORKER) pH, Arterial 7.45 7.35 - 7.45 [facility] pCO2, Arterial 30 (L) 35 - 45 mmHg [facility] pO2, Arterial 87 80 - 90 mmHg [facility] O2 Sat, Arterial 97.3 (H) 96.0 - 97.0 % [facility] HCO3, Arterial 21 21 - 29 mmol/L [facility] Base Excess, Arterial -2.7 (L) -2.0 - 3.0 mmol/L [facility] Patient Temperature 36.6 C [facility] FIO2 21.0 % [facility] Specimen Blood, Arterial Performing Organization Address City/[facility]/Zipcode Phone Number [facility] [address] [place] [address] CENTER Procalcitonin (02/13/2018 7:47 AM CHILD WELFARE CASEWORKER)Only the most recent of2 resultswithin the time period is included. Procalcitonin 0.33 (H) <0.05 ng/mL [facility] Specimen Blood Narrative Performed At SEPSIS RISK (ng/mL) [facility] Low:0.05-0.50 Intermediate: 0.51-2.00 High: >=2.01 Performing Organization Address [facility] Phone Number [address] [address] [place] Fasting lipid panel (02/13/2018 3:13 AM CHILD WELFARE CASEWORKER) Triglycerides 100 mg/dL [facility] Cholesterol 70 mg/dL [facility] HDL 17 mg/dL [facility] LDL Calculated 33 mg/dL [facility] Specimen Blood - Central Venous Line Narrative Performed At Triglyceride Reference Range: [facility] Low Risk <150 [id number] High Risk 200-499 Very High Risk>=500 Cholesterol Reference Range: Low Risk <200 [id number] High Risk>240 HDL Cholesterol Reference Range: Low Risk >=60 High Risk <40 LDL Cholesterol Reference Range: Optimal<100 Near [id number] Very High >=190 Fasting Performing Organization Address [facility] Phone Number [address] [address] [place] B-type Natriuretic Factor (BNP) (02/13/2018 1:41 AM CHILD WELFARE CASEWORKER) BNP 163 (H) 0 - 100 pg/mL [facility] Specimen Blood Performing Organization Address [facility] Phone Number [address] [address] [place] ECG 12 lead (02/13/2018 12:55 AM CHILD WELFARE CASEWORKER) Narrative Performed At Ventricular Rate 91 BPM GE MUSE Atrial Rate 107 BPM QRS Duration 88 ms Q-T Interval 342 ms QTC Calculation(Bazett) 420 ms R [place] 64 degrees T [place] [address] & T wave abnormality, consider inferior ischemia or digitalis effect Abnormal ECG No previous ECGs available Confirmed by LuMD moraels Roberto ([id number]) on 02/13/2018 1:49:56 PM Procedure Note Interface, External Ris In - 02/13/2018 1:50 PM CHILD WELFARE CASEWORKER Ventricular Rate 91 BPM Atrial Rate 107 BPM QRS Duration 88 ms Q-T Interval 342 ms QTC Calculation(Bazett) 420 ms R [place] 64 degrees T [place] [address] & T wave abnormality, consider inferior ischemia or digitalis effect Abnormal ECG No previous ECGs available Confirmed by MD Casey Roberto ([id number]) on 02/13/2018 1:49:56 PM Performing Organization Address City/State/Zipcode Phone Number GE [employer] RESPIRATORY PANEL [facility] (02/13/2018 12:20 AM CHILD WELFARE CASEWORKER) Human Metapneumovirus Not detected Not detected, [facility] Rhinovirus Not detected Not detected, [facility] Influenza A Not detected Not detected, [facility] INFLUENZA A (NO SUBTYPE) Not detected, [facility] Influenza A subtype H1 Not detected, [facility] Influenza A Subtype H3 Not detected, [facility] Influenza A Subtype H1-2009 Not detected, [facility] Influenza B Not detected Not detected, [facility] Respiratory Syncytial Virus Not detected Not detected, [facility] Parainfluenza Virus 1 Not detected Not detected, [facility] Parainfluenza Virus 2 Not detected Not detected, [facility] Parainfluenza virus 3 Not detected Not detected, [facility] Parainfluenza Virus 4 Not detected Not detected, [facility] Adenovirus Not detected Not detected, [facility] Coronavirus 229E Not detected Not detected, [facility] Coronavirus HKU1 Not detected Not detected, [facility] Coronavirus NL63 Not detected Not detected, [facility] Equivocal [facility] Coronavirus OC43 Not detected Not detected, [facility] Bordetella Pertussis Not detected Not detected, [facility] [employer] [facility] Chlamydophila Pneumoniae Not detected Not detected, [facility] Mycoplasma Pneumoniae Not detected Not detected, [facility] Equivocal [facility] Specimen Nasopharyngeal - Nasal, Left Narrative Performed At Other viruses and bacteria not targeted by [facility] this PCR panel cannot be excluded; therefore clinical correlation and follow up of serology, culture results, and other molecular studies is required. The results are not intended to be used as the sole means for clinical diagnosis or patient management decisions. This sample was tested at the [facility] using the [employer] Respiratory Panel. It is FDA cleared and has been verified and approved by the [facility] for clinical use on nasal swab specimens. It is not FDA-cleared for use on bronchial wash/lavage samples. However, for this sample type, validation was performed and test characteristics were determined and approved, by [facility] for clinical use under the Clinical Laboratory Improvement Amendments (CLIA) of 1988 requirements. Therefore, FDA clearance is not required.This laboratory is CLIA-certified and [employer] (CAP)-accredited to perform high complexity testing. Performing Organization Address City/[facility]/Zipcode Phone Number [address] [address] [phone] [place] Rapid Influenza A&B Screen (02/13/2018 12:20 AM CHILD WELFARE CASEWORKER) Rapid Influenza A NEGATIVE LABORATORY Negative, Inconclusive [facility] Antigen FINDING [facility] Rapid influenza B NEGATIVE LABORATORY Negative, Inconclusive [facility] Antigen [facility] Specimen Nasopharyngeal - Nasal, Left Performing Organization Address [facility] Phone Number [address] [phone] [place] ABORH, manual (02/12/2018 9:41 PM CHILD WELFARE CASEWORKER) ABO Grouping A [facility] Rh Factor Positive [facility] Specimen Blood - Central Venous Line Performing Organization Address City/State/Zipcode Phone Number [facility] [address] [place], [place] [phone] Vancomycin level, random (02/12/2018 9:41 PM CHILD WELFARE CASEWORKER) Vancomycin Rm 9.6 ug/mL [facility] Specimen Blood - Central Venous Line Narrative Performed At Reference Range: No Normals [facility] Performing Organization Address City/[facility]/Zipcode Phone Number [facility] [address] [place], [place] [phone] CENTER CT brain cerebral perfusion analysis (02/12/2018 5:50 PM CHILD WELFARE CASEWORKER) Narrative Performed At FINAL REPORT [facility] CTA brain with CT cerebral perfusion analysis 02/12/2018 6:07 PM CLINICAL INDICATION: Stroke COMPARISON:None available TECHNIQUE: Noncontrast CT images of the head were obtained. Axial contrast-enhanced CT angiographic images of the brain were obtained, from which three-dimensional reconstructed images were created. Additional imaging series were created on an independent workstation using maximum intensity projection and volume rendered technique. This examination was performed according to our departmental dose optimization program, which includes automated exposure control, adjustment of the mA and/or kV according to patient size, and/or use of iterated reconstruction technique. FINDINGS: There is a large volume acute nonhemorrhagic infarct involving the majority of the left middle cerebral artery territory. Mass effect results in shallow effacement of the left lateral ventricle, without entrapment. There is mild rightward bowing of the septum pellucidum. There is no parenchymal herniation. There is occlusive thrombus in the M1 segment left middle cerebral artery, with poor distal collateral flow. There is no remarkable penumbra surrounding the infarct core. The remainder of the intracranial arterial vasculature is patent. There is mild chronic-appearing microvascular ischemia in the supratentorial white matter. The visualized orbits, paranasal sinuses, tympanomastoid cavities, and skull are unremarkable. 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 Findings were discussed with the stroke neurology housestaff on 02/12/2017 at 1800. Signed: Jamie Holt MD Report Verified Date/Time:02/12/2018 18:10:04 Reading Location: [facility] Radiology Reading Room Procedure Note Interface, External Ris In - 02/12/2018 6:12 PM CHILD WELFARE CASEWORKER FINAL REPORT CTA brain with CT cerebral perfusion analysis 02/12/2018 6:07 PM CLINICAL INDICATION: Stroke COMPARISON: None available TECHNIQUE: Noncontrast CT images of the head were obtained. Axial contrast-enhanced CT angiographic images of the brain were obtained, from which three-dimensional reconstructed images were created. Additional imaging series were created on an independent workstation using maximum intensity projection and volume rendered technique. This examination was performed according to our departmental dose optimization program, which includes automated exposure control, adjustment of the mA and/or kV according to patient size, and/or use of iterated reconstruction technique. FINDINGS: There is a large volume acute nonhemorrhagic infarct involving the majority of the left middle cerebral artery territory. Mass effect results in shallow effacement of the left lateral ventricle, without entrapment. There is mild rightward bowing of the septum pellucidum. There is no parenchymal herniation. There is occlusive thrombus in the M1 segment left middle cerebral artery, with poor distal collateral flow. There is no remarkable penumbra surrounding the infarct core. The remainder of the intracranial arterial vasculature is patent. There is mild chronic-appearing microvascular ischemia in the supratentorial white matter. The visualized orbits, paranasal sinuses, tympanomastoid cavities, and skull are unremarkable. 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 Findings were discussed with the stroke neurology housestaff on 02/12/2017 at 1800. Signed: Jamie Holt MD Report Verified Date/Time: 02/12/2018 18:10:04 Reading Location: [facility] Radiology Reading Room Performing Organization Address City/State/Zipcode Phone Number RIS CTA brain (02/12/2018 5:50 PM CHILD WELFARE CASEWORKER) Narrative Performed At FINAL REPORT RIS CTA brain with CT cerebral perfusion analysis 02/12/2018 6:07 PM CLINICAL INDICATION: Stroke COMPARISON:None available TECHNIQUE: Noncontrast CT images of the head were obtained. Axial contrast-enhanced CT angiographic images of the brain were obtained, from which three-dimensional reconstructed images were created. Additional imaging series were created on an independent workstation using maximum intensity projection and volume rendered technique. This examination was performed according to our departmental dose optimization program, which includes automated exposure control, adjustment of the mA and/or kV according to patient size, and/or use of iterated reconstruction technique. FINDINGS: There is a large volume acute nonhemorrhagic infarct involving the majority of the left middle cerebral artery territory. Mass effect results in shallow effacement of the left lateral ventricle, without entrapment. There is mild rightward bowing of the septum pellucidum. There is no parenchymal herniation. There is occlusive thrombus in the M1 segment left middle cerebral artery, with poor distal collateral flow. There is no remarkable penumbra surrounding the infarct core. The remainder of the intracranial arterial vasculature is patent. There is mild chronic-appearing microvascular ischemia in the supratentorial white matter. The visualized orbits, paranasal sinuses, tympanomastoid cavities, and skull are unremarkable. 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 Findings were discussed with the stroke neurology housestaff on 02/12/2017 at 1800. Signed: Jamie Holt MD Report Verified Date/Time:02/12/2018 18:10:04 Reading Location: [facility] Radiology Reading Room Procedure Note Interface, External Ris In - 02/12/2018 6:12 PM CHILD WELFARE CASEWORKER FINAL REPORT CTA brain with CT cerebral perfusion analysis 02/12/2018 6:07 PM CLINICAL INDICATION: Stroke COMPARISON: None available TECHNIQUE: Noncontrast CT images of the head were obtained. Axial contrast-enhanced CT angiographic images of the brain were obtained, from which three-dimensional reconstructed images were created. Additional imaging series were created on an independent workstation using maximum intensity projection and volume rendered technique. This examination was performed according to our departmental dose optimization program, which includes automated exposure control, adjustment of the mA and/or kV according to patient size, and/or use of iterated reconstruction technique. FINDINGS: There is a large volume acute nonhemorrhagic infarct involving the majority of the left middle cerebral artery territory. Mass effect results in shallow effacement of the left lateral ventricle, without entrapment. There is mild rightward bowing of the septum pellucidum. There is no parenchymal herniation. There is occlusive thrombus in the M1 segment left middle cerebral artery, with poor distal collateral flow. There is no remarkable penumbra surrounding the infarct core. The remainder of the intracranial arterial vasculature is patent. There is mild chronic-appearing microvascular ischemia in the supratentorial white matter. The visualized orbits, paranasal sinuses, tympanomastoid cavities, and skull are unremarkable. 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 Findings were discussed with the stroke neurology housestaff on 02/12/2017 at 1800. Signed: Jamie Holt MD Report Verified Date/Time: 02/12/2018 18:10:04 Reading Location: [facility] Radiology Reading Room Performing Organization Address City/[facility]/Zipcode Phone Number GE RIS Type and screen, automated (02/12/2018 5:21 PM CHILD WELFARE CASEWORKER) ABO/RH AUTOMATED (BEAKER) A POSITIVE [facility] Ab Scrn NEGATIVE [facility] Specimen Blood - Arm, Right Performing Organization Address City/State/Zipcode Phone Number [address] [address] [phone] Urine culture (02/12/2018 5:20 PM CHILD WELFARE CASEWORKER) Result No growth [facility] Specimen Urine - Urine, Bains Performing Organization Address [facility]/Zipcode Phone Number [address] [address] [phone] CENTER Urinalysis w/ Microscopic (02/12/2018 5:19 PM CHILD WELFARE CASEWORKER) Color, UA Yellow [facility] Clarity, UA Hazy [facility] Specific [place], UA 1.037 (H) 1.001 - 1.035 [facility] pH, UA 5.0 5.0 - 8.0 [facility] Protein, UA 10 mg/dL (A) Negative [facility] Glucose, UA Negative Negative [facility] Ketones, UA Negative Negative [facility] Bilirubin, UA Negative Negative [facility] Blood, UA Moderate (A) Negative [facility] Nitrite, UA Negative Negative [facility] Leukocytes, UA Moderate (A) Negative [facility] Urobilinogen, UA 0.2 0.2 - 1.0 mg/dL [facility] RBC, UA 60 /HPF [facility] WBC, UA 30 /HPF [facility] Bacteria, UA Rare [facility] Mucus Rare [facility] Specimen Source Urine, Bains [facility] Specimen Urine - Urine, Bains Performing Organization Address City/State/Zipcode Phone Number [address] [address] [phone] [place] TSH/Free T4 If Indicated (02/12/2018 5:16 PM CHILD WELFARE CASEWORKER) TSH 1.43 0.35 - 4.94 uIU/mL [facility] Specimen Blood Performing Organization Address City/[facility]/Zipcode Phone Number [address] [address] CENTER RPR (02/12/2018 5:16 PM CHILD WELFARE CASEWORKER) RPR Nonreactive Nonreactive [facility] Specimen Blood Performing Organization Address City/[facility]/Zipcode Phone Number [address] [address] [place] aPTT (02/12/2018 5:16 PM CHILD WELFARE CASEWORKER) PTT 36.7 (H) 22.5 - 36.0 seconds [facility] Specimen Blood Performing Organization Address City/[facility]/Zipcode Phone Number [address] [address] CENTER Prothrombin time/INR (02/12/2018 5:16 PM CHILD WELFARE CASEWORKER) Protime 19.0 (H) 11.7 - 14.7 seconds [facility] INR 1.6 <=5.9 [facility] Specimen Blood Narrative Performed At RECOMMENDED COUMADIN/WARFARIN INR THERAPY [facility] RANGES STANDARD DOSE: 2.0 - 3.0 Includes: PROPHYLAXIS for venous thrombosis, systemic embolization; TREATMENT for venous thrombosis and/or pulmonary embolus. HIGH RISK: Target INR is 2.5-3.5 for patients with mechanical heart valves. Performing Organization Address [facility] Cent[facility]ode Phone Number [address] [address] CENTER Hemoglobin A1c (02/12/2018 5:16 PM CHILD WELFARE CASEWORKER) Hemoglobin A1C 5.1 4.3 - 6.1 % [facility] Specimen Blood Performing Organization Address City/[facility]/Zipcode Phone Number [address] [address] CENTER Hepatic function panel (02/12/2018 5:16 PM CHILD WELFARE CASEWORKER) Protein, Total 4.2 (L) 6.0 - 8.3 gm/dL [facility] Albumin 2.3 (L) 3.5 - 5.0 g/dL [facility] Total Bilirubin 1.1 0.2 - 1.2 mg/dL [facility] Bilirubin, Direct 0.6 (H) 0.1 - 0.5 mg/dL [facility] Alkaline Phosphatase 58 40 - 150 U/L [facility] AST 17 5 - 34 U/L [facility] ALT 9 6 - 55 U/L [facility] Specimen Blood Performing Organization Address City/State/Zipcode Phone Number [facility] [address] [place] [address] CENTER after 02/16/2017 Insurance Payer Benefit Plan / Subscriber ID Type Phone Address Group [employer] - [employer] MEDICARE xxxxxxxx [facility] Contracted [phone] [address] MEDICARE MGD HMO POS [id number] [place] [address] ([place]) [place] [address] Advance Directives For more information, please contact:[facility] [place], [place] [phone] Code Status Date Activated Date Inactivated Comments DNR 02/15/2018 5:01 PM Partial Code 02/13/2018 11:27 AM 02/15/2018 5:01 PM This code status was determined by: Spouse Drug Protocol After Arrest Occurs? Yes Mechanical Ventilation with Intubation? No Bag/Mask? No Internal/External Pacemaker? No Transfer to Critical Care? No Chest Compressions? No Defibrillation/Cardioversion? No Full Code 02/12/2018 5:47 PM 02/13/2018 11:27 AM This code status was determined by: Patient
--- OUTSIDE RECORDS SUMMARY | 2018-02-17 20:39 | XMS REPORT ---
:1935 [facility] [address] [place] [address] [address]. Villanueva [address] [place] [address] Care Team Providers Name Role Phone ARNAUD WALKER Unavailable Unavailable Problems This patient has no known problems. Allergies, Adverse Reactions, Alerts This patient has no known allergies or adverse reactions. Medications This patient has no known medications. Results Test Description Test Time Test Comments Text Results Atomic Results Result Comments SPUTUM CULTURE + GRAM STAIN 2018-02-15 22:10:00 Test Item Value Reference Range Comments CULTURE (BEAKER) (test lfye=1025) 3+ Normal respiratory ruperto present GRAM STAIN RESULT (BEAKER) (test hzvw=7046) 3+ WBCs GRAM STAIN RESULT (BEAKER) (test ygbe=18173) 0-5 epithelial cells GRAM STAIN RESULT (BEAKER) (test rmwb=02198) <1+ gram positive cocci in clusters POCT-GLUCOSE [id number] 12:52:00 Test Item Value Reference Range Comments POC-GLUCOSE METER (BEAKER) 232 mg/dL 70-110 TESTED AT [facility] [address] [facility] (test iohn=1273) [place] [address] URINE [id number] 11:56:00 Test Item Value Reference Range Comments CULTURE (BEAKER) (test awtd=3014) No growth POCT-GLUCOSE [id number] 06:23:00 Test Item Value Reference Range Comments POC-GLUCOSE METER (BEAKER) 227 mg/dL 70-110 TESTED AT [place] [id number] [facility] (test tozv=7498) [place] [id number] 03:48:00 Test Item Value Reference Range Comments CORTISOL, TOTAL (BEAKER) (test iyzm=2972) 9.2 ug/dL 3.7-19.4 [id number] 03:42:00 Test Item Value Reference Range Comments PHOSPHORUS (BEAKER) (test xegc=381) 1.4 mg/dL 2.3-4.7 BASIC METABOLIC [id number] 03:26:00 Test Item Value Reference Range Comments SODIUM (BEAKER) (test 143 meq/L 136-145 dklu=266) POTASSIUM (BEAKER) (test 3.5 meq/L 3.5-5.1 asvy=957) CHLORIDE (BEAKER) (test 115 meq/L 98-107 grry=010) CO2 (BEAKER) (test 26 meq/L 22-29 qtjz=053) BLOOD UREA NITROGEN 14 mg/dL 7-21 (BEAKER) (test muyk=894) CREATININE (BEAKER) (test 0.75 mg/dL 0.57-1.25 engu=064) GLUCOSE RANDOM (BEAKER) 176 mg/dL 70-105 (test sitt=808) CALCIUM (BEAKER) (test 7.9 mg/dL 8.4-10.2 hvni=669) EGFR (BEAKER) (test 99 mL/min/1.73 sq m ESTIMATED GFR IS NOT kcwy=3424) ACCURATE CREATININE CLEARANCE IN PREDICTING GLOMERULAR FILTRATION RATE. ESTIMATED GFR IS NOT APPLICABLE FOR DIALYSIS PATIENTS. VANCOMYCIN LEVEL, [id number] 03:25:00 Test Item Value Reference Range Comments VANCOMYCIN TROUGH (BEAKER) (test fltd=811) 21.6 ug/mL 10.0-20.0 Draw 30 min prior to scheduled dose, HOLD if level > 20 mcg/mL, inform .[id number] 03:22:00 Test Item Value Reference Range Comments MAGNESIUM (BEAKER) (test poyk=541) 1.6 mg/dL 1.6-2.6 [id number] 03:22:00 Test Item Value Reference Range Comments ALBUMIN (BEAKER) (test dpnc=7994) 2.3 g/dL 3.5-5.0 CBC W/PLT COUNT & AUTO [id number] 03:10:00 Test Item Value Reference Range Comments WHITE BLOOD CELL COUNT (BEAKER) (test nyla=312) 20.4 K/ L 3.5-10.5 RED BLOOD CELL COUNT (BEAKER) (test uzcv=926) 3.16 M/ L 4.63-6.08 HEMOGLOBIN (BEAKER) (test obil=763) 9.1 GM/DL 13.7-17.5 HEMATOCRIT (BEAKER) (test pqmm=096) 29.3 % 40.1-51.0 MEAN CORPUSCULAR VOLUME (BEAKER) (test jrui=842) 92.7 fL 79.0-92.2 MEAN CORPUSCULAR HEMOGLOBIN (BEAKER) (test 28.8 pg 25.7-32.2 nrld=176) MEAN CORPUSCULAR HEMOGLOBIN CONC (BEAKER) (test 31.1 GM/DL 32.3-36.5 ydsi=237) RED CELL DISTRIBUTION WIDTH (BEAKER) (test 14.7 % 11.6-14.4 wuyh=123) PLATELET COUNT (BEAKER) (test bwpx=073) 235 K/CU MM 150-450 MEAN PLATELET VOLUME (BEAKER) (test jaeg=922) 11.4 fL 9.4-12.4 NUCLEATED RED BLOOD CELLS (BEAKER) (test 0 /100 WBC 0-0 yksx=806) NEUTROPHILS RELATIVE PERCENT (BEAKER) (test 79 % kdmc=736) LYMPHOCYTES RELATIVE PERCENT (BEAKER) (test 5 % lxfw=843) MONOCYTES RELATIVE PERCENT (BEAKER) (test 13 % uidk=571) EOSINOPHILS RELATIVE PERCENT (BEAKER) (test 2 % gscq=818) BASOPHILS RELATIVE PERCENT (BEAKER) (test 0 % bkra=730) NEUTROPHILS ABSOLUTE COUNT (BEAKER) (test 16.22 K/ L 1.78-5.38 omly=358) LYMPHOCYTES ABSOLUTE COUNT (BEAKER) (test 1.06 K/ L 1.32-3.57 tcxp=315) MONOCYTES ABSOLUTE COUNT (BEAKER) (test 2.55 K/ L 0.30-0.82 gpah=483) EOSINOPHILS ABSOLUTE COUNT (BEAKER) (test 0.35 K/ L 0.04-0.54 gjmi=601) BASOPHILS ABSOLUTE COUNT (BEAKER) (test 0.04 K/ L 0.01-0.08 okxa=366) IMMATURE GRANULOCYTES-RELATIVE PERCENT (BEAKER) 1 % 0-1 (test dyfb=4881) POCT-GLUCOSE [id number] 01:15:00 Test Item Value Reference Range Comments POC-GLUCOSE METER (BEAKER) 198 mg/dL 70-110 TESTED AT [facility] [address] [facility] (test hbjv=2583) [facility] [address] POCT-GLUCOSE [id number] 18:11:00 Test Item Value Reference Range Comments POC-GLUCOSE METER (BEAKER) 203 mg/dL 70-110 TESTED AT [facility] [address] [facility] (test beya=2034) [facility] [address] POCT-GLUCOSE [id number] 12:31:00 Test Item Value Reference Range Comments POC-GLUCOSE METER (BEAKER) 266 mg/dL 70-110 TESTED AT [facility] [address] [facility] (test rndr=4705) [facility] [address] CBC W/PLT COUNT & AUTO [id number] 10:49:00 Test Item Value Reference Range Comments WHITE BLOOD CELL COUNT (BEAKER) (test uxii=376) 27.4 K/ L 3.5-10.5 RED BLOOD CELL COUNT (BEAKER) (test zlgf=953) 3.45 M/ L 4.63-6.08 HEMOGLOBIN (BEAKER) (test ycjz=431) 10.1 GM/DL 13.7-17.5 HEMATOCRIT (BEAKER) (test rflq=346) 31.0 % 40.1-51.0 MEAN CORPUSCULAR VOLUME (BEAKER) (test qsyt=203) 89.9 fL 79.0-92.2 MEAN CORPUSCULAR HEMOGLOBIN (BEAKER) (test 29.3 pg 25.7-32.2 aafv=417) MEAN CORPUSCULAR HEMOGLOBIN CONC (BEAKER) (test 32.6 GM/DL 32.3-36.5 htjf=828) RED CELL DISTRIBUTION WIDTH (BEAKER) (test 14.7 % 11.6-14.4 rsgs=697) PLATELET COUNT (BEAKER) (test qvya=958) 238 K/CU MM 150-450 MEAN PLATELET VOLUME (BEAKER) (test fjag=408) 11.2 fL 9.4-12.4 NUCLEATED RED BLOOD CELLS (BEAKER) (test 0 /100 WBC 0-0 vubs=580) (CELLAVISION MANUAL DIFF)2018-02-14 10:49:00 Test Item Value Reference Range Comments NEUTROPHILS - REL (CELLAVISION)(BEAKER) (test 90 % piip=2636) LYMPHOCYTES - REL (CELLAVISION)(BEAKER) (test 1 % zusp=5833) MONOCYTES - REL (CELLAVISION)(BEAKER) (test 6 % btut=9183) EOSINOPHILS - REL (CELLAVISION)(BEAKER) (test 2 % qgfn=7735) BANDS - REL (CELLAVISION)(BEAKER) (test 1 % 0-10 anhc=3521) NEUTROPHILS - ABS (CELLAVISION)(BEAKER) (test 24.66 K/ul 1.78-5.38 uwhh=7515) LYMPHOCYTES - ABS (CELLAVISION)(BEAKER) (test 0.27 K/ul 1.32-3.57 ccfy=6975) MONOCYTES - ABS (CELLAVISION)(BEAKER) (test 1.64 K/uL 0.30-0.82 rlyn=7409) EOSINOPHILS - ABS (CELLAVISION)(BEAKER) (test 0.55 K/uL 0.04-0.54 vpmh=4322) BANDS - ABS (CELLAVISION)(BEAKER) (test 0.27 K/uL 0.00-0.80 lmcd=0606) TOTAL COUNTED (BEAKER) (test vxfm=5600) 100 WBC MORPHOLOGY (BEAKER) (test fgog=691) Normal PLT MORPHOLOGY (BEAKER) (test eitf=349) Normal POIKILOCYTES (BEAKER) (test hljn=443) 1+ few ARTIFACT (CELLAVISION)(BEAKER) (test amfn=9776) Present PLATELET CONCENTRATION (CELLAVISION)(BEAKER) Adequate (test jikt=8648) Received comment: User comments: Slide comments:RAD, CHEST, 1 VIEW, NON [id number] 09:16:00Reason for exam:->concern for aspirationShould this be performed at the bedside?->YesFINAL REPORT RAD, CHEST , 1 VIEW, NON DEPT INDICATION: concern for aspiration COMPARISON: February 12, 2018 FINDINGS: Portable frontal view of the chest. IMPRESSION: Support Lines : A feeding tube is present, projecting beyond the imaged volume. A right PICC is stable. Lungs and pleura: Airspace disease is unchanged from prior without new consolidation. Stable left effusion. No pneumothorax.Heart and mediastinum: Stable contours. Additional findings: None. Signed: JR Dickinson Robert MDReport Verified Date/Time: 02/14/2018 09:16:25 Reading [facility] Reading Room POCT-GLUCOSE [id number] 06:45:00 Test Item Value Reference Range Comments POC-GLUCOSE METER (BEAKER) 226 mg/dL 70-110 TESTED AT [facility] [address] (test dxnb=5847) [facility] [address] BASIC METABOLIC [id number] 05:17:00 Test Item Value Reference Range Comments SODIUM (BEAKER) (test 140 meq/L 136-145 zuro=317) POTASSIUM (BEAKER) (test 3.4 meq/L 3.5-5.1 cmie=114) CHLORIDE (BEAKER) (test 111 meq/L 98-107 iwmo=220) CO2 (BEAKER) (test 22 meq/L 22-29 lsjd=612) BLOOD UREA NITROGEN 19 mg/dL 7-21 (BEAKER) (test eppu=037) CREATININE (BEAKER) (test 0.92 mg/dL 0.57-1.25 jies=436) GLUCOSE RANDOM (BEAKER) 166 mg/dL 70-105 (test wulw=852) CALCIUM (BEAKER) (test 7.5 mg/dL 8.4-10.2 ikvx=229) EGFR (BEAKER) (test 78 mL/min/1.73 sq m ESTIMATED GFR IS NOT xjpl=9606) ACCURATE CREATININE CLEARANCE IN PREDICTING GLOMERULAR FILTRATION RATE. ESTIMATED GFR IS NOT APPLICABLE FOR DIALYSIS PATIENTS. [id number] 05:16:00 Test Item Value Reference Range Comments PHOSPHORUS (BEAKER) (test vqnk=026) 2.3 mg/dL 2.3-4.7 [id number] 05:16:00 Test Item Value Reference Range Comments MAGNESIUM (BEAKER) (test iycj=371) 1.6 mg/dL 1.6-2.6 LACTIC ACID, VENOUS, WHOLE [id number] 04:56:00 Test Item Value Reference Range Comments LACTATE BLOOD VENOUS (2) (BEAKER) (test 0.8 mmol/L 0.5-2.2 rwem=7214) [id number] 20:17:00 Test Item Value Reference Range Comments POTASSIUM (BEAKER) (test vhak=730) 3.2 meq/L 3.5-5.1 CT BRAIN WITHOUT IV CONTRAST - [id number] 18:55:00Reason for exam:-> tpaFINAL REPORT CT head without contrast 02/13/2018 6:53 PM CLINICAL HISTORY: tpa TECHNIQUE: Contiguous axial images through the head without contrast were obtained utilizing the portable CT unit. This examination was performed according to our departmental dose optimization program,which includes automated exposure control, adjustment of the mA and/or kV according to patient size,and/or use of iterated reconstruction technique. 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 Signed: Jamie Holt Verified Date/Time: 02/13/2018 18:55:09 Reading Location: [facility] Radiology Reading Room POCT-GLUCOSE [id number] 18:20: 00 Test Item Value Reference Range Comments POC-GLUCOSE METER (BEAKER) 174 mg/dL 70-110 TESTED AT [address] (test xlsv=6517) [facility] [address] POCT-GLUCOSE [id number] 16:05:00 Test Item Value Reference Range Comments POC-GLUCOSE METER (BEAKER) 130 mg/dL 70-110 TESTED AT [address] (test vyoa=4472) [place] [id number] TROPONIN [id number] 16:00:00 Test Item Value Reference Range Comments TROPONIN I (BEAKER) (test akpa=387) 0.03 ng/mL 0.00-0.03 Troponin I (TnI) levels must be interpreted in the context of the presenting symptoms and the clinical findings. Elevated TnI levels indicate myocardial damage, but are not specific for ischemic heart disease. Elevated TnI levels are seen in patients with other cardiac conditions (including myocarditis and congestive heart failure), and slight TnI elevations occur in patients with other conditions, including sepsis, renal failure, acidosis, acute neurological disease, and persistent tachyarrhythmia.COMPREHENSIVE METABOLIC [id number] 15:57:00 Test Item Value Reference Range Comments TOTAL PROTEIN (BEAKER) 5.0 gm/dL 6.0-8.3 (test ieos=610) ALBUMIN (BEAKER) (test 2.5 g/dL 3.5-5.0 zrns=0311) ALKALINE PHOSPHATASE 71 U/L 40-150 (BEAKER) (test styr=108) BILIRUBIN TOTAL (BEAKER) 0.9 mg/dL 0.2-1.2 (test wrzz=581) SODIUM (BEAKER) (test 141 meq/L 136-145 qjtv=622) POTASSIUM (BEAKER) (test 3.3 meq/L 3.5-5.1 qyfv=590) CHLORIDE (BEAKER) (test 112 meq/L 98-107 spec=861) CO2 (BEAKER) (test 21 meq/L 22-29 vwdi=767) BLOOD UREA NITROGEN 21 mg/dL 7-21 (BEAKER) (test fgfs=662) CREATININE (BEAKER) (test 0.97 mg/dL 0.57-1.25 oxne=073) GLUCOSE RANDOM (BEAKER) 135 mg/dL 70-105 (test cskh=069) CALCIUM (BEAKER) (test 7.6 mg/dL 8.4-10.2 swwu=597) AST (SGOT) (BEAKER) (test 21 U/L 5-34 oxxf=742) ALT (SGPT) (BEAKER) (test 8 U/L 6-55 smhu=492) EGFR (BEAKER) (test 74 mL/min/1.73 sq m ESTIMATED GFR IS NOT nuab=6049) ACCURATE CREATININE CLEARANCE IN PREDICTING GLOMERULAR FILTRATION RATE. ESTIMATED GFR IS NOT APPLICABLE FOR DIALYSIS PATIENTS. [id number] 15:54:00 Test Item Value Reference Range Comments PHOSPHORUS (BEAKER) (test bqsj=263) 2.8 mg/dL 2.3-4.7 [id number] 15:54:00 Test Item Value Reference Range Comments MAGNESIUM (BEAKER) (test cijt=651) 2.0 mg/dL 1.6-2.6 CALCIUM, [id number] 15:27:00 Test Item Value Reference Range Comments CALCIUM IONIZED (BEAKER) (test esjr=664) 1.06 mmol/L 1.12-1.27 PH, BLOOD (BEAKER) (test cjsj=6829) 7.47 RAD, ABDOMEN/KUB, 1 VIEW [id number] 14:58:00Reason for exam:->feeding tubeFINAL REPORT RAD, ABDOMEN/KUB, 1 VIEW AP COMPARISON: None INDICATION: feedingtube IMPRESSION:A feeding tube has been placed. The distal tip projects over the antrum/pylorus. Thevisible bowel gas pattern is unremarkable. Signed: JR Dickinson Robert MDReport Verified Date/Time: 14:58:51 Reading Location: [address] Consult Reading Room POCT- GLUCOSE [id number] 14:09:00 Test Item Value Reference Range Comments POC-GLUCOSE METER (BEAKER) 127 mg/dL 70-110 TESTED AT [address] (test lbch=8149) [place] [address] [id number] 13:38:00 Test Item Value Reference Range Comments RPR SCREEN (BEAKER) (test zmre=984) Nonreactive Nonreactive POCT-GLUCOSE [id number] 12:39:00 Test Item Value Reference Range Comments POC-GLUCOSE METER (BEAKER) 119 mg/dL 70-110 TESTED AT [address] (test vfcv=9291) [place] [address] TROPONIN [id number] 11:34:00 Test Item Value Reference Range Comments TROPONIN I (BEAKER) (test damq=031) 0.03 ng/mL 0.00-0.03 Troponin I (TnI) levels must be interpreted in the context of the presenting symptoms and the clinical findings. Elevated TnI levels indicate myocardial damage, but are not specific for ischemic heart disease. Elevated TnI levels are seen in patients with other cardiac conditions (including myocarditis and congestive heart failure), and slight TnI elevations occur in patients with other conditions, including sepsis, renal failure, acidosis, acute neurological disease, and persistent tachyarrhythmia.[id number] 11:31:00 Test Item Value Reference Range Comments ALBUMIN (BEAKER) (test yjkd=4718) 2.4 g/dL 3.5-5.0 POCT-GLUCOSE [id number] 10:18:00 Test Item Value Reference Range Comments POC-GLUCOSE METER (BEAKER) 105 mg/dL 70-110 TESTED AT [facility] [address] [facility] (test dcny=6561) [facility] [address] [id number] 09:55:00 Test Item Value Reference Range Comments PROCALCITONIN (BEAKER) (test hkcl=3732) 0.33 ng/mL <0.05 SEPSIS RISK (ng/mL)Low: 0.05-0.50Intermediate: 0.51-2.00High: & gt;=2.01RESPIRATORY PANEL [id number] 09:22:00 Test Item Value Reference Range Comments HUMAN METAPNEUMOVIRUS (BEAKER) (test Not detected Not detected, Equivocal obuf=8213) RHINOVIRUS (BEAKER) (test kloq=6534) Not detected Not detected, Equivocal INFLUENZA A (BEAKER) (test fszw=7142) Not detected Not detected, Equivocal INFLUENZA A (NO SUBTYPE) (test Not detected, Equivocal aayu=3205) INFLUENZA A SUBTYPE H1 (BEAKER) (test Not detected, Equivocal iiig=9511) INFLUENZA A SUBTYPE H3 (BEAKER) (test Not detected, Equivocal fkem=7209) INFLUENZA A SUBTYPE H1-2009 (BEAKER) Not detected, Equivocal (test zsqr=8867) INFLUENZA B (BEAKER) (test bojb=9848) Not detected Not detected, Equivocal RESPIRATORY SYNCYTIAL VIRUS (BEAKER) Not detected Not detected, Equivocal (test weal=3693) PARAINFLUENZA VIRUS 1 (BEAKER) (test Not detected Not detected, Equivocal qlai=7923) PARAINFLUENZA VIRUS 2 (BEAKER) (test Not detected Not detected, Equivocal rjwd=9804) PARAINFLUENZA VIRUS 3 (BEAKER) (test Not detected Not detected, Equivocal rvrb=1272) PARAINFLUENZA VIRUS 4 (BEAKER) (test Not detected Not detected, Equivocal knap=3361) ADENOVIRUS (BEAKER) (test bezo=1322) Not detected Not detected, Equivocal CORONAVIRUS 229E (BEAKER) (test Not detected Not detected, Equivocal qymx=9266) CORONAVIRUS HKU1 (BEAKER) (test Not detected Not detected, Equivocal iwqo=2115) CORONAVIRUS NL63 (BEAKER) (test Not detected Not detected, Equivocal eody=0290) CORONAVIRUS OC43 (BEAKER) (test Not detected Not detected, Equivocal aswa=1943) BORDETELLA PERTUSSIS (BEAKER) (test Not detected Not detected, Equivocal ekbc=3969) CHLAMYDOPHILA PNEUMONIAE (BEAKER) (test Not detected Not detected, Equivocal suev=8028) MYCOPLASMA PNEUMONIAE (BEAKER) (test Not detected Not detected, Equivocal vnqf=8508) Other viruses and bacteria not targeted by this PCR panel cannot be excluded; therefore clinical correlation and follow up of serology, culture results, and other molecular studies is required. The results are not intended to be used as the sole means for clinical diagnosis or patient management decisions. This sample was tested at the [facility] Molecular Diagnostics Laboratory using the BViewArray Respiratory Panel. It is FDA cleared and has been verified and approved by the [facility] for clinical use on nasal swab specimens. It is not FDA-cleared for use on bronchial wash/lavage samples. However, for this sample type, validation was performed and test characteristics were determined and approved, by [facility] [employer] [facility] laboratory for clinical use under the Clinical Laboratory Improvement Amendments (CLIA) of 1988 requirements. Therefore, FDA clearance isnot required. This laboratory is CLIA-certified and [employer] ([employer])-accredited to perform high complexity testing.POCT-GLUCOSE [id number] 09:07:00 Test Item Value Reference Range Comments POC-GLUCOSE METER (BEAKER) 132 mg/dL 70-110 TESTED AT [facility] [address] (test potp=1242) [facility] [address] BLOOD GAS, [id number] 08:24:00 Test Item Value Reference Range Comments PH ARTERIAL (BEAKER) (test hklc=636) 7.45 7.35-7.45 PCO2 ARTERIAL (BEAKER) (test yrrj=254) 30 mmHg 35-45 PO2 ARTERIAL (BEAKER) (test hqsg=132) 87 mmHg 80-90 O2 SATURATION ARTERIAL (BEAKER) (test fkve=803) 97.3 % 96.0-97.0 HCO3 ARTERIAL (BEAKER) (test xyhw=166) 21 mmol/L 21-29 BASE EXCESS ARTERIAL (BEAKER) (test yfce=414) -2.7 mmol/L -2.0-3.0 PATIENT TEMPERATURE (BEAKER) (test vsto=0533) 36.6 C FIO2 (BEAKER) (test vqjc=9054) 21.0 % POCT-GLUCOSE [id number] 08:10:00 Test Item Value Reference Range Comments POC-GLUCOSE METER (BEAKER) 116 mg/dL 70-110 TESTED AT [address] (test elty=4868) [place] [id number] POCT-GLUCOSE [id number] 07:33:00 Test Item Value Reference Range Comments POC-GLUCOSE METER (BEAKER) 129 mg/dL 70-110 TESTED AT [address] (test jfnf=0668) [facility] [address] POCT-GLUCOSE [id number] 05:28:00 Test Item Value Reference Range Comments POC-GLUCOSE METER (BEAKER) 115 mg/dL 70-110 TESTED AT [address] (test ltma=8744) [facility] [address] POCT-GLUCOSE [id number] 04:44:00 Test Item Value Reference Range Comments POC-GLUCOSE METER (BEAKER) 107 mg/dL 70-110 TESTED AT [address] (test qsoc=8413) [facility] [address] CBC W/PLT COUNT & AUTO [id number] 03:47:00 Test Item Value Reference Range Comments WHITE BLOOD CELL COUNT (BEAKER) (test kwgf=013) 26.6 K/ L 3.5-10.5 RED BLOOD CELL COUNT (BEAKER) (test lvrh=040) 3.36 M/ L 4.63-6.08 HEMOGLOBIN (BEAKER) (test blil=619) 9.8 GM/DL 13.7-17.5 HEMATOCRIT (BEAKER) (test qgch=272) 30.9 % 40.1-51.0 MEAN CORPUSCULAR VOLUME (BEAKER) (test wpua=156) 92.0 fL 79.0-92.2 MEAN CORPUSCULAR HEMOGLOBIN (BEAKER) (test 29.2 pg 25.7-32.2 qpst=830) MEAN CORPUSCULAR HEMOGLOBIN CONC (BEAKER) (test 31.7 GM/DL 32.3-36.5 pnpn=660) RED CELL DISTRIBUTION WIDTH (BEAKER) (test 14.6 % 11.6-14.4 hlse=947) PLATELET COUNT (BEAKER) (test oztd=615) 227 K/CU MM 150-450 MEAN PLATELET VOLUME (BEAKER) (test yidk=785) 11.0 fL 9.4-12.4 NUCLEATED RED BLOOD CELLS (BEAKER) (test 0 /100 WBC 0-0 leuv=267) NEUTROPHILS RELATIVE PERCENT (BEAKER) (test 85 % aoza=968) LYMPHOCYTES RELATIVE PERCENT (BEAKER) (test 3 % imtq=895) MONOCYTES RELATIVE PERCENT (BEAKER) (test 9 % kuoc=991) EOSINOPHILS RELATIVE PERCENT (BEAKER) (test 1 % ribd=841) BASOPHILS RELATIVE PERCENT (BEAKER) (test 0 % gxbf=986) NEUTROPHILS ABSOLUTE COUNT (BEAKER) (test 22.57 K/ L 1.78-5.38 lvho=409) LYMPHOCYTES ABSOLUTE COUNT (BEAKER) (test 0.85 K/ L 1.32-3.57 zfet=425) MONOCYTES ABSOLUTE COUNT (BEAKER) (test 2.45 K/ L 0.30-0.82 gvbu=038) EOSINOPHILS ABSOLUTE COUNT (BEAKER) (test 0.38 K/ L 0.04-0.54 okgu=381) BASOPHILS ABSOLUTE COUNT (BEAKER) (test 0.04 K/ L 0.01-0.08 iaur=394) IMMATURE GRANULOCYTES-RELATIVE PERCENT (BEAKER) 1 % 0-1 (test dupe=8294) BASIC METABOLIC [id number] 03:45:00 Test Item Value Reference Range Comments SODIUM (BEAKER) (test 142 meq/L 136-145 dbhk=044) POTASSIUM (BEAKER) (test 3.0 meq/L 3.5-5.1 lkqr=704) CHLORIDE (BEAKER) (test 119 meq/L 98-107 yeyr=790) CO2 (BEAKER) (test 20 meq/L 22-29 wokz=238) BLOOD UREA NITROGEN 25 mg/dL 7-21 (BEAKER) (test ikxt=212) CREATININE (BEAKER) (test 0.84 mg/dL 0.57-1.25 zotj=980) GLUCOSE RANDOM (BEAKER) 68 mg/dL 70-105 (test uppx=939) CALCIUM (BEAKER) (test 6.8 mg/dL 8.4-10.2 cxsq=988) EGFR (BEAKER) (test 87 mL/min/1.73 sq m ESTIMATED GFR IS NOT duqm=3341) ACCURATE CREATININE CLEARANCE IN PREDICTING GLOMERULAR FILTRATION RATE. ESTIMATED GFR IS NOT APPLICABLE FOR DIALYSIS PATIENTS. [id number] 03:44:00 Test Item Value Reference Range Comments PHOSPHORUS (BEAKER) (test baxz=002) 1.8 mg/dL 2.3-4.7 [id number] 03:44:00 Test Item Value Reference Range Comments MAGNESIUM (BEAKER) (test dfst=336) 1.2 mg/dL 1.6-2.6 FastingLIPID [id number] 03:44:00 Test Item Value Reference Range Comments TRIGLYCERIDES (BEAKER) (test ssjq=217) 100 mg/dL CHOLESTEROL (BEAKER) (test wqzi=994) 70 mg/dL HDL CHOLESTEROL (BEAKER) (test iezl=192) 17 mg/dL LDL CHOLESTEROL CALCULATED (BEAKER) (test 33 mg/dL dkyp=523) Triglyceride Reference Range: Low Risk <150 Borderline 150- 199 High Risk 200-499 Very High Risk >=500Cholesterol Reference Range: Low Risk <200 Borderline 200-239 High Risk > 240HDL Cholesterol Reference Range: Low Risk >=60 High Risk <40LDL Cholesterol Reference Range: Optimal <100 Near Optimal 100-129 Borderline 130-159 High 160-189 Very High >=190 FastingLACTIC ACID, VENOUS, WHOLE [id number] 03:39:00 Test Item Value Reference Range Comments LACTATE BLOOD VENOUS (2) (BEAKER) (test 0.8 mmol/L 0.5-2.2 qobh=2320) POCT-GLUCOSE [id number] 02:57:00 Test Item Value Reference Range Comments POC-GLUCOSE METER (BEAKER) 53 mg/dL 70-110 TESTED AT [facility] [address] [facility] (test tnny=7752) [facility] [address] POCT-GLUCOSE [id number] 02:57:00 Test Item Value Reference Range Comments POC-GLUCOSE METER (BEAKER) 86 mg/dL 70-110 TESTED AT [address] (test piyw=0068) [place] [address] HEMOGLOBIN [id number] 02:50:00 Test Item Value Reference Range Comments HEMOGLOBIN A1C (BEAKER) (test nohl=765) 5.1 % 4.3-6.1 B-TYPE NATRIURETIC FACTOR (BNP)2018-02-13 02:23:00 Test Item Value Reference Range Comments B-TYPE NATRIURETIC PEPTIDE (BEAKER) (test 163 pg/mL 0-100 fvky=611) POCT-GLUCOSE [id number] 01:40:00 Test Item Value Reference Range Comments POC-GLUCOSE METER (BEAKER) 101 mg/dL 70-110 TESTED AT [address] (test yvnl=2364) [place] [address] RAPID INFLUENZA A&B [id number] 01:09:00 Test Item Value Reference Range Comments RAPID INFLUENZA A AG (BEAKER) (test Negative Negative, Inconclusive hrqt=2207) RAPID INFLUENZA B AG (BEAKER) (test Negative Negative, Inconclusive xxoz=4826) TROPONIN [id number] 00:39:00 Test Item Value Reference Range Comments TROPONIN I (BEAKER) (test kysc=380) 0.03 ng/mL 0.00-0.03 Troponin I (TnI) levels must be interpreted in the context of the presenting symptoms and the clinical findings. Elevated TnI levels indicate myocardial damage, but are not specific for ischemic heart disease. Elevated TnI levels are seen in patients with other cardiac conditions (including myocarditis and congestive heart failure), and slight TnI elevations occur in patients with other conditions, including sepsis, renal failure, acidosis, acute neurological disease, and persistent tachyarrhythmia.LACTIC ACID, VENOUS, WHOLE [id number] 00:31:00 Test Item Value Reference Range Comments LACTATE BLOOD VENOUS (2) (BEAKER) (test 0.9 mmol/L 0.5-2.2 wlnd=8044) POCT-GLUCOSE [id number] 23:24:00 Test Item Value Reference Range Comments POC-GLUCOSE METER (BEAKER) 101 mg/dL 70-110 TESTED AT [address] (test ywox=1692) [place] [address] [id number] 22:27:00 Test Item Value Reference Range Comments PROCALCITONIN (BEAKER) (test kmrg=8720) 0.29 ng/mL <0.05 SEPSIS RISK (ng/mL)Low: 0.05-0.50Intermediate: 0.51-2.00High: & gt;=2.01POCT-GLUCOSE [id number] 22:19:00 Test Item Value Reference Range Comments POC-GLUCOSE METER (BEAKER) 113 mg/dL 70-110 TESTED AT [address] (test grzp=9338) [place] [address] VANCOMYCIN LEVEL, [id number] 22:02:00 Test Item Value Reference Range Comments VANCOMYCIN RANDOM (BEAKER) (test iesf=697) 9.6 ug/mL Reference Range: No NormalsLACTIC ACID, VENOUS, WHOLE [id number] 22:00:00 Test Item Value Reference Range Comments LACTATE BLOOD VENOUS (2) (BEAKER) (test 0.7 mmol/L 0.5-2.2 cidz=0523) POCT-GLUCOSE [id number] 21:21:00 Test Item Value Reference Range Comments POC-GLUCOSE METER (BEAKER) 54 mg/dL 70-110 TESTED AT [address] (test goax=4250) [place] [address] RAD, CHEST, 1 VIEW, NON [id number] 21:11:00Reason for exam:->check picc placement Should this be performed at the bedside?->YesFINAL REPORT Chest, 1 view. History: Check PICC placement Comparison: None available. IMPRESSION: Enlarged cardiac mediastinal silhouette. Left retrocardiac opacity favored to represent partial left lower lobe collapse and small left pleural effusion. Increased bilateral reticular airspace opacities which are most consistent with interstitial pulmonary edema. No pneumothorax. Right upper cavity PICC with tip overlying the cavoatrial junction. Osseous structures are unremarkable. Signed: Derek Goodwin Verified Date/ Time: 02/12/2018 21:11:44 Reading Location: [address] Reading Room POCT-GLUCOSE [id number] 19:24:00 Test Item Value Reference Range Comments POC-GLUCOSE METER (BEAKER) 58 mg/dL 70-110 TESTED AT [facility] [address] (test ofau=7246) [facility] [address] CBC W/PLT COUNT & AUTO [id number] 18:46:00 Test Item Value Reference Range Comments WHITE BLOOD CELL COUNT (BEAKER) (test igts=443) 30.1 K/ L 3.5-10.5 RED BLOOD CELL COUNT (BEAKER) (test hvan=665) 3.49 M/ L 4.63-6.08 HEMOGLOBIN (BEAKER) (test ahnn=241) 10.3 GM/DL 13.7-17.5 HEMATOCRIT (BEAKER) (test wzjx=782) 32.8 % 40.1-51.0 MEAN CORPUSCULAR VOLUME (BEAKER) (test zptl=952) 94.0 fL 79.0-92.2 MEAN CORPUSCULAR HEMOGLOBIN (BEAKER) (test 29.5 pg 25.7-32.2 boql=127) MEAN CORPUSCULAR HEMOGLOBIN CONC (BEAKER) (test 31.4 GM/DL 32.3-36.5 efnt=286) RED CELL DISTRIBUTION WIDTH (BEAKER) (test 14.5 % 11.6-14.4 daxy=276) PLATELET COUNT (BEAKER) (test eilz=897) 229 K/CU MM 150-450 MEAN PLATELET VOLUME (BEAKER) (test ikmg=614) 11.5 fL 9.4-12.4 NUCLEATED RED BLOOD CELLS (BEAKER) (test 0 /100 WBC 0-0 nhks=415) (CELLAVISION MANUAL DIFF)2018-02-12 18:46:00 Test Item Value Reference Range Comments NEUTROPHILS - REL (CELLAVISION)(BEAKER) (test 92 % touo=7148) LYMPHOCYTES - REL (CELLAVISION)(BEAKER) (test 2 % vguy=5263) MONOCYTES - REL (CELLAVISION)(BEAKER) (test 5 % idfr=0150) EOSINOPHILS - REL (CELLAVISION)(BEAKER) (test 1 % vwcw=0579) NEUTROPHILS - ABS (CELLAVISION)(BEAKER) (test 27.69 K/ul 1.78-5.38 rhrl=7464) LYMPHOCYTES - ABS (CELLAVISION)(BEAKER) (test 0.60 K/ul 1.32-3.57 jusj=5371) MONOCYTES - ABS (CELLAVISION)(BEAKER) (test 1.51 K/uL 0.30-0.82 fedf=1824) EOSINOPHILS - ABS (CELLAVISION)(BEAKER) (test 0.30 K/uL 0.04-0.54 ljme=0381) TOTAL COUNTED (BEAKER) (test cyaf=7815) 100 PLT MORPHOLOGY (BEAKER) (test xjtn=176) Normal SMUDGE CELLS (BEAKER) (test ancy=3561) Present POLYCHROMATOPHILLIC RBCS(BEAKER) (test lxcs=430) 1+ few HYPOCHROMIA (BEAKER) (test cljb=842) 1+ few ANISOCYTOSIS (BEAKER) (test fpbu=652) 1+ few POIKILOCYTES (BEAKER) (test jbyz=588) 3+ many PLATELET CONCENTRATION (CELLAVISION)(BEAKER) Adequate (test qjhq=7500) Received comment: User comments: Slide comments:TSH/FREE T4 IF [id number] 18:25:00 Test Item Value Reference Range Comments THYROID STIMULATING HORMONE (BEAKER) (test 1.43 uIU/mL 0.35-4.94 fmxb=529) CT, CTANGIO [id number] 18:10:00CT PERFUSION STUDY FOR THROMBECTOMY EVALUATIONFINAL REPORT CTA brain with CT cerebral perfusion [...] on 02/12/2017 at 1800. Signed: Jamie Holt Verified Date/Time: 02/12/2018 18:10: 04 Reading Location: [facility] Radiology Reading Room CT, CEREBRAL PERFUSION [id number] 18:10:00FINAL REPORT CTA brain with CT cerebral perfusion [...] matter. The visualized orbits, paranasal sinuses, tympanomastoid cavities , and skull are unremarkable. 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 Findings were discussed with the stroke neurology housestaff on 02/12/2017 at 1800. Signed: Jamie Holt Verified Date/Time: 02/12/2018 18:10: 04 Reading Location: [facility] Radiology Reading Room [facility] [id number] 18:09:00 Test Item Value Reference Range Comments SODIUM (BEAKER) (test 141 meq/L 136-145 mqzd=863) POTASSIUM (BEAKER) (test 3.6 meq/L 3.5-5.1 rlpo=867) CHLORIDE (BEAKER) (test 114 meq/L 98-107 ybwk=039) CO2 (BEAKER) (test 23 meq/L 22-29 yvau=789) BLOOD UREA NITROGEN 37 mg/dL 7-21 (BEAKER) (test moyc=475) CREATININE (BEAKER) (test 1.11 mg/dL 0.57-1.25 insu=539) GLUCOSE RANDOM (BEAKER) 68 mg/dL 70-105 (test wido=481) CALCIUM (BEAKER) (test 7.8 mg/dL 8.4-10.2 krur=652) EGFR (BEAKER) (test 63 mL/min/1.73 sq m ESTIMATED GFR IS NOT wqfo=2291) ACCURATE CREATININE CLEARANCE IN PREDICTING GLOMERULAR FILTRATION RATE. ESTIMATED GFR IS NOT APPLICABLE FOR DIALYSIS PATIENTS. HEPATIC FUNCTION [id number] 18:08:00 Test Item Value Reference Range Comments TOTAL PROTEIN (BEAKER) (test nncu=270) 4.2 gm/dL 6.0-8.3 ALBUMIN (BEAKER) (test ckuc=1152) 2.3 g/dL 3.5-5.0 BILIRUBIN TOTAL (BEAKER) (test phyv=894) 1.1 mg/dL 0.2-1.2 BILIRUBIN DIRECT (BEAKER) (test caei=257) 0.6 mg/dL 0.1-0.5 ALKALINE PHOSPHATASE (BEAKER) (test rqbr=999) 58 U/L 40-150 AST (SGOT) (BEAKER) (test wauz=253) 17 U/L 5-34 ALT (SGPT) (BEAKER) (test nttc=322) 9 U/L 6-55 URINALYSIS W/ [id number] 18:06:00 Test Item Value Reference Range Comments COLOR (BEAKER) (test mkjs=341) Yellow CLARITY (BEAKER) (test vkod=839) Hazy SPECIFIC GRAVITY UA (BEAKER) (test vucr=822) 1.037 1.001-1.035 PH UA (BEAKER) (test fdfq=206) 5.0 5.0-8.0 PROTEIN UA (BEAKER) (test hgkf=394) 10 mg/dL Negative GLUCOSE UA (BEAKER) (test kcwl=105) Negative Negative KETONES UA (BEAKER) (test ecfx=408) Negative Negative BILIRUBIN UA (BEAKER) (test pppe=411) Negative Negative BLOOD UA (BEAKER) (test wvke=763) Moderate Negative NITRITE UA (BEAKER) (test hhpa=723) Negative Negative LEUKOCYTE ESTERASE UA (BEAKER) (test yusp=616) Moderate Negative UROBILINOGEN UA (BEAKER) (test yfkj=267) 0.2 mg/dL 0.2-1.0 RBC UA (BEAKER) (test byiz=329) 60 /HPF WBC UA (BEAKER) (test rhmb=937) 30 /HPF BACTERIA (BEAKER) (test peno=735) Rare MUCUS (BEAKER) (test wvfa=1713) Rare SOURCE(BEAKER) (test euhw=1708) Urine, [place] LACTIC ACID, VENOUS, WHOLE [id number] 18:04:00 Test Item Value Reference Range Comments LACTATE BLOOD VENOUS (2) (BEAKER) (test 1.4 mmol/L 0.5-2.2 olik=6912) [id number] 17:57:00 Test Item Value Reference Range Comments PARTIAL THROMBOPLASTIN TIME (BEAKER) (test 36.7 seconds 22.5-36.0 uhzv=832) PROTHROMBIN TIME/[id number] 17:56:00 Test Item Value Reference Range Comments PROTIME (BEAKER) (test jmeq=819) 19.0 seconds 11.7-14.7 INR (BEAKER) (test hbsg=372) 1.6 <=5.9 RECOMMENDED COUMADIN/WARFARIN INR THERAPY RANGESSTANDARD DOSE: 2.0 - 3.0 Includes: PROPHYLAXIS forvenous thrombosis, systemic embolization; TREATMENT for venous thrombosis and/or pulmonary embolus.HIGH RISK: Target INR is 2.5-3.5 for patients with mechanical heart valves.
[2018-02-17] MEDS ORDERED: MORPHINE 2 MG/ML SYR IV PRN (21:35)
[2018-02-17] MEDS ORDERED: ATROPINE 1% OPTH DROPS 5ML SL PRN (21:35)
[2018-02-17] MEDS ORDERED: ACETAMINOPHEN 650MG/RECT SUPP PR PRN (21:45)
[2018-02-17] MEDS ORDERED: NA CHLORIDE 0.9% 1,000 ML IV SCH (22:00)
[2018-02-17] MEDS: LORazepam 2 MG/ML VIAL IV PRN ×2 (22:05→23:54)
[2018-02-17] MEDS ORDERED: HALOPERIDOL LACT 5 MG/ML INJ IV PRN (22:20)
[2018-02-17 23:35] LABS: Absolute Lymphocytes (CBC) 0.8 K/uL (0.7-4.9); Absolute Monocytes 1.7 K/uL (0.1-1.3); Absolute Neutrophil 12.2 K/uL (1.8-8.0); Basophils % 0.5 % (0-1.3); Hematocrit 27.1 % (39.6-49.0); Lymphocytes % 5.3 % (15.3-44.8); MPV 10.4 fL (7.6-11.3); Monocytes % 11.7 % (3.3-12.3); RBC Red Blood Cell Count 3.01 M/uL (4.33-5.43)
[2018-02-17 23:48] LABS: ALT/SGPT 20 U/L (12-78); AST/SGOT 47 U/L (15-37); Albumin 1.6 g/dL (3.4-5.0); Alkaline Phosphatase 100 U/L (45-117); BUN Blood Urea Nitrogen 18 mg/dL (7-18); Bicarbonate 29 mmol/L (21-32); Bilirubin Total 0.5 mg/dL (0.2-1.0); Glucose Level 100 mg/dL (74-106); Protein, Total 4.9 g/dL (6.4-8.2); Sodium Level 150 mmol/L (136-145)
[2018-02-18] MEDS: MORPHINE 4 MG/ML SYR IV PRN ×2 (01:00→09:09)
[2018-02-18] MEDS: LORazepam 2 MG/ML VIAL IV PRN ×2 (02:21→08:08)
[2018-02-18] MEDS ORDERED: SCOPOLAMINE HYDROBROMIDE PATCH TD ONE (03:29)
--- NOTE | 2018-02-18 07:49 | RAD REPORT ---
EXAM DESCRIPTION: [facility] Single View02/17/2018 10:22 pm CLINICAL HISTORY: Chest pain COMPARISON: February 12, 2018 FINDINGS: Small bilateral pleural effusions are present with bibasilar atelectasis. Mild interstitial pulmonary edema is suspected The heart is mildly enlarged. PICC line has its tip in superior vena cava
[2018-02-18] MEDS: LORazepam 2 MG/ML VIAL IV SCH ×7 (10:09→22:16)
[2018-02-18] MEDS: MORPHINE 4 MG/ML SYR IV SCH ×7 (10:10→22:16)
[2018-02-19] MEDS: LORazepam 2 MG/ML VIAL IV SCH ×8 (00:31→14:00)
[2018-02-19] MEDS: MORPHINE 4 MG/ML SYR IV SCH ×8 (00:31→14:00)
[2018-02-20] MEDS ORDERED: SCOPOLAMINE HYDROBROMIDE PATCH TD SCH (09:00)
== END 2018-02-19 13:22 | disposition expired | DRG 951 ==
LOC: 2ND 20:35
PROVIDERS: ADMIT Family Medicine; ATTEND Family Medicine
DX: Z51.5 Encounter for palliative care (principal); I63.9 Cerebral infarction, unspecified
CPT/HCPCS: 36415; 71045; 80053; 85025; J7030